=== PATIENT | female | born 1940 | race Caucasian/White ===

== ENCOUNTER → 2017-01-06 | Outpatient (CLI) | payer OTHER ==
[2016-04-01 19:59] VITALS: BP 165/87
--- NOTE | 2017-01-06 10:03 | CT ---
HISTORY: Follow up lung nodule Study: CT chest without con Comparison: June 27, 2016 April 02, 2016, January 26, 2016 Technique: Axial non contrast images with coronal and sagittal reformats. Dose reduction procedures were used with MA/kv adjusted for body size. Findings: Examination of the mediastinum demonstrated no evidence for mediastinal masses enlarged lymphadenopa thy or enlarged hilar adenopathy. Stable nonenlarged mediastinal lymph nodes are present. No pleural effusions are identified. A small hiatal hernia is present. No chest wall or axillary abnormality i s identified. Those portions of the upper abdominal organs visualized were within normal limits to t he limitations of an unenhanced examination. Examination of the lung eagle again demonstrated a pos terior right apical pulmonary nodule best visualized on series 4, image 14 and measuring 7.1 millime ters not significantly changed from the prior examination. This has been stable since January 25 6. No other pulmonary nodules are identified. No masses, alveolar infiltrates, areas of consolidatio n, peribronchial thickening or bronchiectasis is identified. IMPRESSION: Stable right upper lobe pulmonary nodule for which continued follow up is recommended in 6 more daniel hs. Follow up will be required for total of 2 years in order to establish stability and benignity. Stable nonenlarged mediastinal lymph nodes Small hiatal hernia Reported By:
== END ==
LOC: RAD 08:57
PROVIDERS: ATTEND Internal Medicine Critical Care Medicine
DX: J45.30 Mild persistent asthma, uncomplicated (principal); R91.1 Solitary pulmonary nodule
CPT/HCPCS: 71250

== ENCOUNTER → 2017-07-07 | Outpatient (CLI) | payer OTHER ==
[2016-04-01 19:59] VITALS: BP 165/87
--- NOTE | 2017-07-08 17:11 | CT ---
HISTORY: Solitary pulmonary nodule. Asthma. Severe shortness of breath. Uterine cancer Study: Computed tomography of the chest: Multiple axial images were obtained throughout the chest. Intravascular contrast was not administered. Radiation dose reduction techniques utilized. Comparison: 01/06/2017 Findings: There is moderate apical pleural/parenchymal thickening and nodularity, not felt to be significantly changed from the prior examination. This most likely is due to scarring. A pulmonary nodule is pres ent in the posterior right upper lobe measuring approximately 6.4 by 6.5 mm, not felt to be significa ntly changed. There are couple pleural-based densities present in the posterior aspect of the right hemithorax, most likely scarring. No new nodules are identified. The thyroid appears normal. I see no appreciable supraclavicular adenopathy. No evidence of axillar y adenopathy is identified. A small lymph node is present in the left side of the upper mediastinum on, unchanged. Minimal atherosclerotic changes noted in the thoracic aorta. A small subcarinal lymp h node is present, unchanged. It appears to be partially calcified. No definite hilar adenopathy is identified. A small soft tissue density is present anterior to the esophagus between the branches o f the pulmonary artery is measuring approximately 17 mm in maximum dimension. This has [place]oun[place] un its of fluid and may represent a small pericardial effusion or cyst. Heart size is normal. Coronary arterial calcification is noted. A small hiatal hernia/paraesophageal hernia is noted, unchanged. The visualized liver shows mild fatty infiltration. Borderline hepatomegaly is present. The gallbla dder is mildly contracted. No appreciable biliary duct dilatation is noted. The spleen is normal in its appearance. The adrenal glands are normal. Mild atherosclerotic changes noted in the visualize d abdominal aorta. The visualized kidneys and pancreas are normal. No discrete abnormality of stoma ch are visualized: Are small bowel is noted. Minimal thoracic spondylosis is noted. There is what appears to be a small hemangioma in the L1 vert ebral body, unchanged. IMPRESSION: 1. Stable appearance of the right pulmonary nodule. Continued follow-up is recommended. An additio nal follow-up in 6 months is recommended. 2. Stable appearance of the its small mediastinal lymph nodes. Reported By:
== END ==
LOC: RAD 14:09
PROVIDERS: ATTEND Internal Medicine Critical Care Medicine
DX: R91.1 Solitary pulmonary nodule (principal); J45.30 Mild persistent asthma, uncomplicated
CPT/HCPCS: 71250

== ENCOUNTER 2018-09-30 22:17 | Inpatient (IN) ==
[2018-09-30] MEDS ORDERED: PEPCID 20 MG IV PREMIX* 20 MG/50 ML BAG IV ONE (23:52)
[2018-09-30] MEDS ORDERED: ZOFRAN INJ 4 MG VIAL IVP ONE (23:54)
[2018-09-30] MEDS ORDERED: MORPHINE SULFATE INJ 4 MG IVP ONE (23:54)
[2018-09-30] MEDS ORDERED: ZOFRAN INJ 4 MG VIAL ONE (23:57)
[2018-09-30] MEDS ORDERED: PEPCID 20 MG IV PREMIX* 20 MG/50 ML BAG ONE (23:57)
[2018-09-30] MEDS ORDERED: MORPHINE SULFATE INJ 4 MG ONE (23:58)
[2018-10-01] MEDS: NS 1000 ML 1,000 ML IV SCH ×4 (00:10→15:54)
--- NOTE | 2018-10-01 00:11 | ED.ABDFE ---
HPI Time Seen Time Seen by Provider: 09/30/18 23:49 PCP Primary Care Physician: TONJA BREAUX Complaint Chief Complaint:: STATES STOMACH PAIN JUST STARTED TODAY AND RIGHT LEG THE BACK OF IT HAS BEEN HURTING FOR 2 WEEKS AND IT GETS "AN INFECTION IN IT". NO C OMPLAINTS OF N/V/D Self Treatment fo Chief Complaint: N/A Source History Provided: Patient Mode of arrival Mode of Arrival: Ambulatory Timing Onset of Chief Complaint: 09/30/18 PMH PMH Past Medical History: Yes Past Medical History: Anxiety and GERD Past Medical History Comment: RESTLESS LEGS STENT Past Surgical History: Yes Surgical History: Hysterectomy and Ortho Surgery Past Surgical History Comment: BILATERAL KNEES BLADDER TACT HEART CATH Family History History of Family Medical Conditions: Yes Family Medical History: Diabetes Mellitus and Cancer Social History Does patient currently use any type of tobacco product: No Have you used tobacco products in the last 12 months: No Type of Tobacco Use: None Does any household member use tobacco: No Alcohol Use: None Do you use any recreational Drugs:: No Lives With: Family Lives Where: Home infectious screening In the last 2 months have you had wt loss of >10#?: NO Have you had fever, night sweats or hemotysis?: No Have you traveled outside the country in the last 6 months?: No Isolation: Standard PE Vital Signs Vitals: Temperature 98.0 F Pulse Rate [Left] 75 Pulse Rate 89 Respiratory Rate 16 Blood Pressure [Right Arm] 139/62 Blood Pressure [Left Arm] 161/63 Blood Pressure 140/65 O2 Sat by Pulse Oximetry 97 ROR Labs Reviewed Result Diagrams: 10/01/18 00:05 10/01/18 00:05 Laboratory: WBC 17.9 X10^3/uL (3.6-10.0) H 10/01/18 00:05 RBC 4.84 X10^6/uL (3.5-5.4) 10/01/18 00:05 Hgb 14.8 g/dL (12.0-16.0) 10/01/18 00:05 Hct 43.4 % (36.0-47.0) 10/01/18 00:05 MCV 89.6 fL (80.0-100.0) 10/01/18 00:05 MCH 30.6 pg (27.0-34.0) 10/01/18 00:05 MCHC 34.1 g/dL (33.0-35.0) 10/01/18 00:05 RDW 14.8 % (11.6-16.5) 10/01/18 00:05 Plt Count 236 X10^3/uL (150.0-450.0) 10/01/18 00:05 MPV 8.8 fL (7.4-11.0) 10/01/18 00:05 Neut % (Auto) 78.6 % (42.0-75.0) H 10/01/18 00:05 Lymph % (Auto) 13.0 % (21.0-51.0) L 10/01/18 00:05 [place] % (Auto) 6.6 % (0.0-13.0) 10/01/18 00:05 Eos % (Auto) 1.1 % (0.9-2.9) 10/01/18 00:05 Baso % (Auto) 0.7 % (0.2-1.0) 10/01/18 00:05 Neut # (Auto) 14.1 x10^3/uL (2.2-4.8) H 10/01/18 00:05 Lymph # (Auto) 2.3 X10^3/uL (1.3-2.9) 10/01/18 00:05 [place] # (Auto) 1.2 x10^3/uL (0.3-0.8) H 10/01/18 00:05 Eos # (Auto) 0.2 x10^3/uL (0.0-0.2) 10/01/18 00:05 Baso # (Auto) 0.1 X10^3/uL (0.0-0.1) 10/01/18 00:05 Absolute Nucleated RBC 0.0 /100WBC 10/01/18 00:05 Sodium 139 mmol/L (136-145) 10/01/18 00:05 Corrected Sodium 139 mmol/L (136-145) 10/01/18 00:05 Potassium 3.5 mmol/L (3.5-5.1) 10/01/18 00:05 Chloride 102 mmol/L (98-107) 10/01/18 00:05 Carbon Dioxide 25.8 mmol/L (21-32) 10/01/18 00:05 BUN 12 mg/dL (7-18) 10/01/18 00:05 Creatinine 0.91 mg/dL (0.55-1.02) 10/01/18 00:05 Est GFR (MDRD) Af Amer > 60 (>60) 10/01/18 00:05 Est GFR (MDRD) Non-Af > 60 (>60) 10/01/18 00:05 Glucose 112 mg/dL (65-99) H 10/01/18 00:05 Calcium 8.7 mg/dL (8.5-10.1) 10/01/18 00:05 Corrected Calcium 9.5 mg/dL (8.5-10.1) 10/01/18 00:05 Total Bilirubin 0.60 mg/dL (0.2-1.0) 10/01/18 00:05 AST 15 Units/L (15-37) 10/01/18 00:05 ALT 23 Units/L (12-78) 10/01/18 00:05 Alkaline Phosphatase 92 Units/L (46-116) 10/01/18 00:05 Total Protein 6.3 g/dL (6.4-8.2) L 10/01/18 00:05 Albumin 3.0 g/dL (3.4-5.0) L 10/01/18 00:05 Globulin 3.3 g/dL (2.5-4.5) 10/01/18 00:05 Albumin/Globulin Ratio 0.9 Ratio (1.1-2.1) L 10/01/18 00:05 Amylase 48 Units/L (25-115) 10/01/18 00:05 Lipase 146 Units/L (73-393) 10/01/18 00:05 Specimen Type Clean catch urine 10/01/18 00:07 Urine Color Pale yellow (YELLOW) 10/01/18 00:07 Urine Appearance Clear (CLEAR) 10/01/18 00:07 Urine pH 7.0 (5.0 - 8.0) 10/01/18 00:07 Ur Specific [place] 1.005 (1.000-1.030) 10/01/18 00:07 Urine Protein Negative (NEGATIVE) 10/01/18 00:07 Urine Glucose (UA) Negative (NEGATIVE) 10/01/18 00:07 Urine Ketones Negative (NEGATIVE) 10/01/18 00:07 Urine Occult Blood Negative (NEGATIVE) 10/01/18 00:07 Urine Nitrite Negative (NEGATIVE) 10/01/18 00:07 Urine Bilirubin Negative (NEGATIVE) 10/01/18 00:07 Urine Urobilinogen Normal (NORMAL) 10/01/18 00:07 Ur Leukocyte Esterase Negative (NEGATIVE) 10/01/18 00:07
[2018-10-01 00:17] LABS: BASOPHILS # (AUTO) 0.1 X10^3/uL (0.0-0.1); BASOPHILS % (AUTO) 0.7 % (0.2-1.0); EOSINOPHILS # (AUTO) 0.2 x10^3/uL (0.0-0.2); EOSINOPHILS % (AUTO) 1.1 % (0.9-2.9); HEMATOCRIT 43.4 % (36.0-47.0); HEMOGLOBIN 14.8 g/dL (12.0-16.0); LYMPHOCYTES # (AUTO) 2.3 X10^3/uL (1.3-2.9); MEAN CORPUSCULAR HEMOGLOBIN 30.6 pg (27.0-34.0); MEAN CORPUSCULAR HGB CONC 34.1 g/dL (33.0-35.0); MEAN CORPUSCULAR VOLUME 89.6 fL (80.0-100.0); MEAN PLATELET VOLUME 8.8 fL (7.4-11.0); MONOCYTES # (AUTO) 1.2 x10^3/uL (0.3-0.8); MONOCYTES % (AUTO) 6.6 % (0.0-13.0); NEUTROPHILS # (AUTO) 14.1 x10^3/uL (2.2-4.8); NEUTROPHILS % (AUTO) 78.6 % (42.0-75.0); PLATELET COUNT 236 X10^3/uL (150.0-450.0); RED BLOOD COUNT 4.84 X10^6/uL (3.5-5.4); RED CELL DISTRIBUTION WIDTH 14.8 % (11.6-16.5); WHITE BLOOD COUNT 17.9 X10^3/uL (3.6-10.0)
[2018-10-01 00:20] LABS: BILIRUBIN,URINE NEGATIVE (NEGATIVE); BLOOD/HEMOGLOBIN,URINE NEGATIVE (NEGATIVE); GLUCOSE, URINE NEGATIVE (NEGATIVE); KETONES,URINE NEGATIVE (NEGATIVE); LEUKOCYTE ESTERASE ,URINE NEGATIVE (NEGATIVE); NITRITES,URINE NEGATIVE (NEGATIVE); PROTEIN,URINE NEGATIVE (NEGATIVE); UROBILINOGEN,URINE NORMAL (NORMAL)
[2018-10-01 00:21] LABS: APPEARANCE,URINE CLEAR (CLEAR); COLOR,URINE PALE YELLOW (YELLOW)
[2018-10-01 00:29] LABS: ALANINE AMINOTRANSFERASE 23 Units/L (12-78); ALKALINE PHOSPHATASE 92 Units/L (46-116); AMYLASE 48 Units/L (25-115); ASPARTATE AMINO TRANSFERASE 15 Units/L (15-37); BLOOD UREA NITROGEN 12 mg/dL (7-18); CALCIUM 8.7 mg/dL (8.5-10.1); CARBON DIOXIDE 25.8 mmol/L (21-32); CHLORIDE 102 mmol/L (98-107); COR CA(FOR HYPOALB) 9.5 mg/dL (8.5-10.1); COR NA(FOR HYPERGLY) 139 mmol/L (136-145); CREATININE 0.91 mg/dL (0.55-1.02); LIPASE 146 Units/L (73-393); SODIUM 139 mmol/L (136-145); TOTAL PROTEIN 6.3 g/dL (6.4-8.2); eGFR NON BLACK RACES > 60 (>60)
[2018-10-01] MEDS ORDERED: NS 100 ML IV + SPIKE MINIBAG* 100 ML ONE (01:45)
--- NOTE | 2018-10-01 02:40 | CT ---
CT abdomen and pelvis with contrast Indication: Abdominal pain Comparison: none available Technique: Multiple axial images of the abdomen and pelvis were obtained from the lung bases to the pubic symphysis after the administration of IV contrast. Coronal and sagittal reformatted images were also provided. Findings: The lung bases demonstrate mild subsegmental atelectasis and scarring. No focal hepatic lesion. Gallbladder is distended without calcified gallstone or pericholecystic stranding. Bile ducts are normal in caliber. The spleen, pancreas and adrenal glands are normal. Neither kidney demonstrates evidence of nephrolithiasis; however, there is [id number] right and mild left-sided hydronephrosis. Urinary bladder is distended. No pelvic or adnexal mass. The rectum is normal. Several diverticula with moderate bowel wall thickening and pericolonic fat stranding noted within the sigmoid colon is consistent with an acute sigmoid diverticulitis. No localizing fluid collection or free air to suggest perforation. Remaining colon demonstrates scattered diverticula without evidence of additional areas of diverticulitis. Upper GI tract demonstrates a small sliding hiatal hernia with a very small paraesophageal lymph node. No pelvic free fluid. Abdominal aorta is normal in caliber with scattered calcified atherosclerotic disease. Review of bone windows demonstrates no acute osseous abnormality. Impression: 1. Acute sigmoid diverticulitis without evidence of abscess or free air to suggest perforation. 2. Mild to moderate right and mild left-sided hydronephrosis the level the urinary bladder, no obstructing stone or mass identified. 3. Refer to above for other incidental findings. Reported By:
[2018-10-01] MEDS ORDERED: FLAGYL IV PREMIX 500 MG BAG 500 MG/100 ML BAG IV ONE ×2 (03:35→03:38)
[2018-10-01] MEDS ORDERED: XANAX PO PRN (04:23)
[2018-10-01 04:36] VITALS: BMI 29.7
[2018-10-01] MEDS: MORPHINE SULFATE INJ 2 MG INJ IVP PRN ×2 (05:26→11:04)
[2018-10-01] MEDS: CIPRO IV 400 MG PREMIX* 400 MG/200 ML IV.SOLN. IV SCH ×2 (08:55→20:04)
[2018-10-01] MEDS: FLAGYL IV PREMIX 500 MG BAG 500 MG/100 ML BAG IV SCH ×3 (08:56→20:04)
[2018-10-01] MEDS: COREG TAB 6.25 MG PO SCH ×2 (10:37→21:32)
[2018-10-01] MEDS: CLARITIN PO SCH (10:38)
[2018-10-01] MEDS: MIRAPEX TAB 1 MG PO SCH ×2 (12:12→21:32)
[2018-10-01] MEDS: TYLENOL 325 MG TAB PO PRN (13:34)
[2018-10-01] MEDS ORDERED: MIRAPEX TAB 1 MG PO SCH (21:00)
[2018-10-01] MEDS: KLONOPIN TAB 1 MG PO SCH (21:33)
[2018-10-01] MEDS: SOMA TAB 350 MG PO SCH (21:33)
[2018-10-02] MEDS: FLAGYL IV PREMIX 500 MG BAG 500 MG/100 ML BAG IV SCH ×4 (02:22→20:31)
[2018-10-02] MEDS: NS 1000 ML 1,000 ML IV SCH ×2 (02:26→12:59)
[2018-10-02 06:09] LABS: BASOPHILS # (AUTO) 0.1 X10^3/uL (0.0-0.1); BASOPHILS % (AUTO) 0.6 % (0.2-1.0); EOSINOPHILS # (AUTO) 0.2 x10^3/uL (0.0-0.2); EOSINOPHILS % (AUTO) 1.7 % (0.9-2.9); HEMATOCRIT 39.7 % (36.0-47.0); HEMOGLOBIN 13.5 g/dL (12.0-16.0); LYMPHOCYTES # (AUTO) 1.4 X10^3/uL (1.3-2.9); LYMPHOCYTES % (AUTO) 14.2 % (21.0-51.0); MEAN CORPUSCULAR HEMOGLOBIN 30.7 pg (27.0-34.0); MEAN CORPUSCULAR VOLUME 90.4 fL (80.0-100.0); MEAN PLATELET VOLUME 8.8 fL (7.4-11.0); MONOCYTES # (AUTO) 0.7 x10^3/uL (0.3-0.8); MONOCYTES % (AUTO) 6.8 % (0.0-13.0); NEUTROPHILS # (AUTO) 7.7 x10^3/uL (2.2-4.8); NEUTROPHILS % (AUTO) 76.7 % (42.0-75.0); PLATELET COUNT 210 X10^3/uL (150.0-450.0); RED BLOOD COUNT 4.39 X10^6/uL (3.5-5.4); RED CELL DISTRIBUTION WIDTH 15.2 % (11.6-16.5)
[2018-10-02 06:30] LABS: ALANINE AMINOTRANSFERASE 21 Units/L (12-78); ALBUMIN 2.5 g/dL (3.4-5.0); ALKALINE PHOSPHATASE 74 Units/L (46-116); ASPARTATE AMINO TRANSFERASE 15 Units/L (15-37); BLOOD UREA NITROGEN 7 mg/dL (7-18); CALCIUM 8.5 mg/dL (8.5-10.1); CARBON DIOXIDE 25.7 mmol/L (21-32); CHLORIDE 109 mmol/L (98-107); COR CA(FOR HYPOALB) 9.7 mg/dL (8.5-10.1); CREATININE 0.81 mg/dL (0.55-1.02); SODIUM 144 mmol/L (136-145); TOTAL PROTEIN 5.7 g/dL (6.4-8.2); eGFR NON BLACK RACES > 60 (>60)
[2018-10-02] MEDS: CIPRO IV 400 MG PREMIX* 400 MG/200 ML IV.SOLN. IV SCH ×2 (09:08→20:31)
[2018-10-02] MEDS: CLARITIN PO SCH (09:09)
[2018-10-02] MEDS: COREG TAB 6.25 MG PO SCH ×2 (09:09→20:32)
[2018-10-02] MEDS: MIRAPEX TAB 1 MG PO SCH ×2 (09:09→20:32)
[2018-10-02] MEDS: TYLENOL 325 MG TAB PO PRN ×2 (10:26→21:36)
[2018-10-02] MEDS: ZOFRAN INJ 4 MG VIAL IVP PRN (11:05)
[2018-10-02] MEDS: PEPCID 20 MG IV PREMIX* 20 MG/50 ML BAG IV PRN ×2 (11:09→12:59)
[2018-10-02] MEDS: LOVENOX INJ 30 MG SYR SC SCH (12:59)
[2018-10-02] MEDS: SOMA TAB 350 MG PO SCH (20:31)
[2018-10-02] MEDS: KLONOPIN TAB 1 MG PO SCH (20:32)
[2018-10-03] MEDS: NS 1000 ML 1,000 ML IV SCH ×5 (02:11→23:09)
[2018-10-03] MEDS: FLAGYL IV PREMIX 500 MG BAG 500 MG/100 ML BAG IV SCH ×4 (02:11→20:09)
[2018-10-03] MEDS: MORPHINE SULFATE INJ 2 MG INJ IVP PRN ×2 (05:53→12:14)
[2018-10-03] MEDS: TYLENOL 325 MG TAB PO PRN (08:17)
[2018-10-03] MEDS: LOVENOX INJ 30 MG SYR SC SCH (08:30)
[2018-10-03] MEDS: CIPRO IV 400 MG PREMIX* 400 MG/200 ML IV.SOLN. IV SCH ×2 (08:30→20:09)
[2018-10-03] MEDS: MIRAPEX TAB 1 MG PO SCH ×2 (08:30→20:10)
[2018-10-03] MEDS: CLARITIN PO SCH (08:30)
[2018-10-03] MEDS: COREG TAB 6.25 MG PO SCH ×2 (08:30→20:10)
[2018-10-03] MEDS: ZOFRAN INJ 4 MG VIAL IVP PRN (12:15)
[2018-10-03] MEDS: SOMA TAB 350 MG PO SCH (20:10)
[2018-10-03] MEDS: KLONOPIN TAB 1 MG PO SCH (20:10)
[2018-10-03] MEDS ORDERED: MIRALAX POWDER (1 DOSE 17 G) PO SCH (21:00)
[2018-10-03] MEDS ORDERED: COLACE CAP 100 MG PO SCH (21:00)
[2018-10-04] MEDS: FLAGYL IV PREMIX 500 MG BAG 500 MG/100 ML BAG IV SCH ×2 (02:19→08:24)
[2018-10-04] MEDS: NS 1000 ML 1,000 ML IV SCH ×2 (06:14→07:22)
[2018-10-04 06:31] LABS: BASOPHILS # (AUTO) 0.1 X10^3/uL (0.0-0.1); BASOPHILS % (AUTO) 0.7 % (0.2-1.0); EOSINOPHILS # (AUTO) 0.3 x10^3/uL (0.0-0.2); EOSINOPHILS % (AUTO) 2.7 % (0.9-2.9); HEMATOCRIT 41.8 % (36.0-47.0); HEMOGLOBIN 14.1 g/dL (12.0-16.0); LYMPHOCYTES # (AUTO) 2.1 X10^3/uL (1.3-2.9); LYMPHOCYTES % (AUTO) 21.4 % (21.0-51.0); MEAN CORPUSCULAR HEMOGLOBIN 30.7 pg (27.0-34.0); MEAN CORPUSCULAR HGB CONC 33.9 g/dL (33.0-35.0); MEAN CORPUSCULAR VOLUME 90.6 fL (80.0-100.0); MEAN PLATELET VOLUME 8.9 fL (7.4-11.0); MONOCYTES # (AUTO) 0.6 x10^3/uL (0.3-0.8); MONOCYTES % (AUTO) 6.5 % (0.0-13.0); NEUTROPHILS # (AUTO) 6.8 x10^3/uL (2.2-4.8); NEUTROPHILS % (AUTO) 68.7 % (42.0-75.0); PLATELET COUNT 246 X10^3/uL (150.0-450.0); RED BLOOD COUNT 4.61 X10^6/uL (3.5-5.4); WHITE BLOOD COUNT 9.8 X10^3/uL (3.6-10.0)
[2018-10-04 06:36] LABS: ALANINE AMINOTRANSFERASE 19 Units/L (12-78); ALBUMIN 2.7 g/dL (3.4-5.0); ALKALINE PHOSPHATASE 85 Units/L (46-116); ASPARTATE AMINO TRANSFERASE 17 Units/L (15-37); BLOOD UREA NITROGEN 11 mg/dL (7-18); CALCIUM 8.8 mg/dL (8.5-10.1); CHLORIDE 107 mmol/L (98-107); COR CA(FOR HYPOALB) 9.8 mg/dL (8.5-10.1); CREATININE 0.86 mg/dL (0.55-1.02); SODIUM 141 mmol/L (136-145); eGFR NON BLACK RACES > 60 (>60)
[2018-10-04] MEDS: COREG TAB 6.25 MG PO SCH (08:24)
[2018-10-04] MEDS: CLARITIN PO SCH (08:24)
[2018-10-04] MEDS: LOVENOX INJ 30 MG SYR SC SCH (08:24)
[2018-10-04] MEDS: CIPRO IV 400 MG PREMIX* 400 MG/200 ML IV.SOLN. IV SCH (08:24)
[2018-10-04] MEDS: MIRAPEX TAB 1 MG PO SCH (08:25)
[2018-10-04 09:36] VITALS: BP 154/93
== END 2018-10-04 11:20 | disposition home or self-care (01) | DRG 392 ==
LOC: ER 22:17 → MED/SURG 10-01 03:42
PROVIDERS: ADMIT Obstetrics & Gynecology Obstetrics; ATTEND Obstetrics & Gynecology Obstetrics
DX: I10 Essential (primary) hypertension; K57.32 Diverticulitis of large intestine without perforation or abscess without bleeding; R10.84 Generalized abdominal pain; K21.9 Gastro-esophageal reflux disease without esophagitis; Z79.899 Other long term (current) drug therapy
CPT/HCPCS: 36415; 74177; 80053; 81003; 82150; 83690; 85025; 96365; 96367; 96374; 96375; 99284; A4222; S0028; S0030; J0744; J1650; J2270; J2405; J3490; J7030; J7050

== ENCOUNTER 2020-02-20 10:57 | Inpatient (IN) ==
[2020-02-20 13:15] VITALS: BMI 29.4
[2020-02-20] MEDS: PROTONIX INJ 40 MG VIAL IVP SCH (13:15)
[2020-02-20] MEDS: ZOSYN VIAL 3.375 GRAMS 3.375 G in NS 100 ML IV + SPIKE MINIBAG* 100 ML IV SCH ×2 (13:15→17:17)
[2020-02-20] MEDS: ZITHROMAX INJ 500 MG VIAL 500 MG in D5W 250 ML IV 250 ML IV SCH (13:45)
[2020-02-20] MEDS ORDERED: DUONEB 0.5 MG/3 MG (3 mL) NEB ONE (13:50)
--- NOTE | 2020-02-20 14:05 | RAD ---
HISTORYCOVID, PNEUMONIA, COUGHSTUDYCHEST x-ray, 1 VIEWCOMPARISONX-ray 02/18/2020FINDINGSBilateral lung infiltrates may have slightly worsened since prior study. Heart is normal in size. No pneumothorax or pleural effusion is seen.IMPRESSIONPossible mild worsening of bilateral pneumonia.Electronically signed by: Armando Dunne (Feb 20, 2020 14:04:32)
[2020-02-20] MEDS: DUONEB 0.5 MG/3 MG (3 mL) NEB SCH ×3 (14:10→20:20)
[2020-02-20 14:22] LABS: ABG ALLEN TEST POS; ABG BASE EXCESS -0.3 mmol/L (-2.0-2.0); ABG HCO3 22.1 mmol/L (22-26)
[2020-02-20 14:38] LABS: BASOPHILS # (AUTO) 0.1 X10^3/uL (0.0-0.1); BASOPHILS % (AUTO) 0.6 % (0.2-1.0); EOSINOPHILS % (AUTO) 0.2 % (0.9-2.9); HEMATOCRIT 39.3 % (36.0-47.0); HEMOGLOBIN 13.6 g/dL (12.0-16.0); LYMPHOCYTES # (AUTO) 1.7 X10^3/uL (1.3-2.9); LYMPHOCYTES % (AUTO) 14.5 % (21.0-51.0); MEAN CORPUSCULAR HEMOGLOBIN 30.7 pg (27.0-34.0); MEAN CORPUSCULAR HGB CONC 34.6 g/dL (33.0-35.0); MEAN CORPUSCULAR VOLUME 88.6 fL (80.0-100.0); MEAN PLATELET VOLUME 9.7 fL (7.4-11.0); MONOCYTES # (AUTO) 0.8 x10^3/uL (0.3-0.8); MONOCYTES % (AUTO) 7.2 % (0.0-13.0); NEUTROPHILS # (AUTO) 9.1 x10^3/uL (2.2-4.8); NEUTROPHILS % (AUTO) 77.5 % (42.0-75.0); PLATELET COUNT 225 X10^3/uL (150.0-450.0); RED BLOOD COUNT 4.44 X10^6/uL (3.5-5.4); RED CELL DISTRIBUTION WIDTH 13.7 % (11.6-16.5); WHITE BLOOD COUNT 11.7 X10^3/uL (3.6-10.0)
[2020-02-20] MEDS: SOLU-Medrol 125 MG VIAL IVP SCH ×2 (15:00→22:11)
[2020-02-20] MEDS: LOVENOX INJ 40 MG SYR SC SCH (15:00)
[2020-02-20 15:05] LABS: BLOOD UREA NITROGEN 11 mg/dL (7-18); CALCIUM 8.9 mg/dL (8.5-10.1); CARBON DIOXIDE 24.8 mmol/L (21-32); CHLORIDE 98 mmol/L (98-107); CREATININE 1.07 mg/dL (0.55-1.02); SODIUM 134 mmol/L (136-145); TROPONIN I < 0.02 ng/mL (0-1.5); eGFR NON BLACK RACES 53 (>60)
[2020-02-20 15:10] LABS: ALANINE AMINOTRANSFERASE 24 Units/L (12-78); ALBUMIN 2.7 g/dL (3.4-5.0); ALKALINE PHOSPHATASE 84 Units/L (46-116); ASPARTATE AMINO TRANSFERASE 32 Units/L (15-37); CKMB % 1.6 % (<4); COR CA(FOR HYPOALB) 9.9 mg/dL (8.5-10.1); CREATINE KINASE 62 Units/L (26-192); CREATINE KINASE MB < 1.0 ng/mL (0-4.0); TOTAL PROTEIN 7.5 g/dL (6.4-8.2)
[2020-02-20 15:14] LABS: ERYTHROCYTE SEDIMENTATION RATE 93 MM/HOUR (0-20)
--- NOTE | 2020-02-20 18:14 | DR.H&P ---
H&P - History & Physical for Day of: H&P Date: 02/20/20 - Chief Complaint Chief Complaint: sob, weakness, report pneumonia with covid + - History of Present Illness History of Present Illness: PT IS 79 WF DIRECT ADMIT FROM DR VERDUGO OFFICE W ITH CO COVID 19+ X 1 WEEK WITH CO INCREASED CHEST PAIN, SOB AND DEHYDRATION. PT HAD CXR ON 02/17 REVEALING PNEUMONIA. PT HAS BEEN ON PO LEVAQUIN, PLAQUENIL, ZITHROMAX AND PO STEROIDS WITH DUO NEBS AND NO IMPROVEMENT. PT HAS PMH OF CAD WITH 1 STENT, DENIES DM - Past Medical History Past Medical History: Anxiety, COPD, GERD - Past Surgical History Surgical History: CABG/Valve Surgery, Ortho Surgery - Family History Family Medical History: Diabetes Mellitus, Cancer - Social History Does patient currently use any type of tobacco product: No Have you used tobacco products in the last 12 months: No Type of Tobacco Use: None Alcohol Use: None - Medications Home Medications: codeine Allergy (Verified 02/18/20 11:03) CONTINUE taking the following medications ciprofloxacin HCl [Cipro] 500 mg PO DAILY 02/20/20 [History] metronidazole-skin cleansr #23 0.75 % TOPICAL BID 02/20/20 [History] oxycodone-acetaminophen [Percocet] 1 tab PO BID MDD 4 02/20/20 [History] - Review of Systems Constitutional: Fever, Chills, Sweats, Weakness, Malaise Eyes: No Symptoms Reported ENT: No Symptoms Reported Respiratory: Cough, Shortness of Breath, SOB with Excertion, Pleuritic Pain Cardiovascular: Chest Pain. denies: Edema Gastrointestinal: Nausea, Vomiting, Diarrhea Genitourinary: No Symptoms Reported Musculoskeletal: Back Pain, Leg Pain Skin: No Symptoms Reported Neurological: Weakness - Physical Exam Vital Signs: Temperature 98.0 F Pulse Rate [Left Radial] 93 Pulse Rate 99 Respiratory Rate 37 Blood Pressure [Right Arm] 148/67 Blood Pressure [Left Arm] 142/64 Blood Pressure 156/74 O2 Sat by Pulse Oximetry 95 Oriented: Normal Eyes: Normal Ear: Normal Nose: Normal Throat: Dry Respiratory: Diminished Throughout Cardiovascular: Tachycardia. negative: Edema Auscultation: Bowel Sounds: Normal Palpation: Normal Tenderness: Normal Skin: Decreased Turgur Musculoskeletal: Normal Psychiatric: Anxiety Affect: Anxious Speech Pattern: Clear, Appropriate - Assessment/Plan (1) Pneumonia due to COVID-19 virus Status: Acute Plan: ADMIT, ICU, ISOLATION. CXR AND ABG ON ADMISSION, EKG AND CARDIAC MONITORING, CE ON ADMISSION. IV HYDRATION, STRICT I&OS, IV ZITHROMAX AND ZOSYN. IV REMDESIVIR, CONVALESCENT PLASMA, IV SOLU MEDROL. SUPPLEMENTAL O2, BP CONTROL, BLOOD AND SPUTUM CULTURES ON ADMISSION. VERIFY HOME MEDICATION (2) Hypoxia Status: Acute (3) CAD (coronary artery disease) Status: Acute - Allergies Allergies/Adverse Reactions: Allergies Allergy/AdvReac Type Severity Reaction Status Date / Time codeine Allergy Verified 02/18/20 11:03
[2020-02-20] MEDS ORDERED: ROBITUSSIN DM PO PRN (18:18)
[2020-02-20] MEDS ORDERED: REMDESIVIR (INVESTIGATIONAL DRUG GS-5734) 200 MG in NS 250 ML IV 250 ML IV SCH (19:00)
[2020-02-20] MEDS ORDERED: NORCO 7.5/325 MG TAB ONE (19:35)
[2020-02-20] MEDS: NORCO 7.5/325 MG TAB PO SCH (19:40)
[2020-02-20] MEDS: NS 1000 ML 1,000 ML IV SCH (21:00)
[2020-02-20] MEDS: ASCORBIC ACID INJ MULTI-DOSE VIAL 1,500 MG in NS 100 ML IV 100 ML IV SCH (21:00)
[2020-02-20] MEDS: MIRAPEX TAB 1 MG PO SCH (21:00)
[2020-02-20] MEDS: PLAQUENIL PO SCH (21:00)
[2020-02-21] MEDS: DUONEB 0.5 MG/3 MG (3 mL) NEB SCH ×6 (00:40→21:45)
[2020-02-21 05:27] LABS: BASOPHILS % (AUTO) 0.1 % (0.2-1.0); HEMATOCRIT 39.3 % (36.0-47.0); HEMOGLOBIN 13.5 g/dL (12.0-16.0); LYMPHOCYTES # (AUTO) 0.5 X10^3/uL (1.3-2.9); MEAN CORPUSCULAR HEMOGLOBIN 31.1 pg (27.0-34.0); MEAN CORPUSCULAR HGB CONC 34.5 g/dL (33.0-35.0); MEAN CORPUSCULAR VOLUME 90.2 fL (80.0-100.0); MEAN PLATELET VOLUME 9.3 fL (7.4-11.0); MONOCYTES # (AUTO) 0.3 x10^3/uL (0.3-0.8); MONOCYTES % (AUTO) 2.9 % (0.0-13.0); NEUTROPHILS # (AUTO) 8.9 x10^3/uL (2.2-4.8); PLATELET COUNT 217 X10^3/uL (150.0-450.0); RED BLOOD COUNT 4.35 X10^6/uL (3.5-5.4); RED CELL DISTRIBUTION WIDTH 14.1 % (11.6-16.5); WHITE BLOOD COUNT 9.6 X10^3/uL (3.6-10.0)
[2020-02-21 05:56] LABS: ALBUMIN 2.2 g/dL (3.4-5.0); CALCIUM 8.6 mg/dL (8.5-10.1); CARBON DIOXIDE 20.4 mmol/L (21-32); CREATININE 1.25 mg/dL (0.55-1.02); TOTAL PROTEIN 6.6 g/dL (6.4-8.2)
[2020-02-21] MEDS: ZOSYN VIAL 3.375 GRAMS 3.375 G in NS 100 ML IV + SPIKE MINIBAG* 100 ML IV SCH ×5 (06:15→22:00)
[2020-02-21] MEDS: SOLU-Medrol 125 MG VIAL IVP SCH ×3 (06:15→21:00)
[2020-02-21 06:22] LABS: PLATELET MORPHOLOGY COMMENT NORMAL (NORMAL)
[2020-02-21] MEDS: PROTONIX INJ 40 MG VIAL IVP SCH (08:30)
[2020-02-21] MEDS: ASCORBIC ACID INJ MULTI-DOSE VIAL 1,500 MG in NS 100 ML IV 100 ML IV SCH ×2 (09:04→21:00)
[2020-02-21] MEDS: LOVENOX INJ 40 MG SYR SC SCH (09:05)
[2020-02-21] MEDS: NORCO 7.5/325 MG TAB PO SCH ×2 (09:05→21:00)
[2020-02-21] MEDS: MIRAPEX TAB 1 MG PO SCH ×2 (09:05→21:00)
[2020-02-21] MEDS: NS 1000 ML 1,000 ML IV SCH ×2 (09:06→18:47)
[2020-02-21] MEDS: ZITHROMAX INJ 500 MG VIAL 500 MG in D5W 250 ML IV 250 ML IV SCH (09:07)
[2020-02-21] MEDS ORDERED: KLOR-CON PO PRN ×2 (09:10→12:58)
[2020-02-21] MEDS ORDERED: K-RIDER 10 MEQ/NS 100 ML 10 MEQ/100 ML BAG IV PRN ×2 (09:10→12:58)
[2020-02-21] MEDS ORDERED: POTASSIUM CHL 40 MEQ/NS 0.45% 500 ML IV PRN ×2 (09:10→12:58)
[2020-02-21] MEDS ORDERED: K-DUR TAB 20 MEQ PO PRN ×2 (09:10→12:58)
[2020-02-21] MEDS ORDERED: POTASSIUM CHL 60 MEQ/NS 0.45% 500 ML IV PRN ×2 (09:10→12:58)
[2020-02-21] MEDS ORDERED: MICRO K EXTEN CAP 10 MEQ PO PRN ×2 (09:10→12:58)
[2020-02-21] MEDS: REMDESIVIR (INVESTIGATIONAL DRUG GS-5734) 100 MG in NS 250 ML IV 250 ML IV SCH (10:20)
[2020-02-21] MEDS: PLAQUENIL PO SCH ×2 (10:20→21:00)
[2020-02-21] MEDS: POTASSIUM CHLORIDE LIQ 20 MEQ UDC PO PRN ×3 (10:20→18:47)
[2020-02-21] MEDS: PEPCID TAB 20 MG PO SCH (10:20)
[2020-02-21] MEDS ORDERED: POTASSIUM CHLORIDE LIQ 20 MEQ UDC PO PRN (12:58)
[2020-02-21] MEDS ORDERED: SOLU-Medrol 40 MG VIAL ONE (13:14)
[2020-02-21] MEDS ORDERED: KLOR-CON ONE (18:05)
[2020-02-22] MEDS: DUONEB 0.5 MG/3 MG (3 mL) NEB SCH ×6 (00:41→20:25)
[2020-02-22] MEDS: NS 1000 ML 1,000 ML IV SCH ×2 (01:43→13:17)
[2020-02-22] MEDS ORDERED: NS 250 ML IV 250 ML IV ONE (02:37)
[2020-02-22 04:54] LABS: BASOPHILS % (AUTO) 0 % (0.2-1.0); HEMATOCRIT 38.1 % (36.0-47.0); HEMOGLOBIN 12.8 g/dL (12.0-16.0); LYMPHOCYTES # (AUTO) 0.7 X10^3/uL (1.3-2.9); LYMPHOCYTES % (AUTO) 2.4 % (21.0-51.0); MEAN CORPUSCULAR HEMOGLOBIN 30.1 pg (27.0-34.0); MEAN CORPUSCULAR HGB CONC 33.5 g/dL (33.0-35.0); MEAN CORPUSCULAR VOLUME 89.9 fL (80.0-100.0); MEAN PLATELET VOLUME 9.6 fL (7.4-11.0); MONOCYTES # (AUTO) 0.9 x10^3/uL (0.3-0.8); MONOCYTES % (AUTO) 3.1 % (0.0-13.0); NEUTROPHILS # (AUTO) 27.8 x10^3/uL (2.2-4.8); NEUTROPHILS % (AUTO) 94.5 % (42.0-75.0); PLATELET COUNT 272 X10^3/uL (150.0-450.0); RED BLOOD COUNT 4.24 X10^6/uL (3.5-5.4); RED CELL DISTRIBUTION WIDTH 13.5 % (11.6-16.5); WHITE BLOOD COUNT 29.5 X10^3/uL (3.6-10.0)
[2020-02-22 05:09] LABS: ALANINE AMINOTRANSFERASE 26 Units/L (12-78); ALBUMIN 2.2 g/dL (3.4-5.0); ALKALINE PHOSPHATASE 90 Units/L (46-116); ASPARTATE AMINO TRANSFERASE 25 Units/L (15-37); BLOOD UREA NITROGEN 11 mg/dL (7-18); CARBON DIOXIDE 24.6 mmol/L (21-32); CHLORIDE 107 mmol/L (98-107); COR CA(FOR HYPOALB) 10.4 mg/dL (8.5-10.1); COR NA(FOR HYPERGLY) 141 mmol/L (136-145); CREATININE 0.98 mg/dL (0.55-1.02); SODIUM 138 mmol/L (136-145); TOTAL PROTEIN 6.4 g/dL (6.4-8.2); eGFR NON BLACK RACES 58 (>60)
[2020-02-22 05:37] LABS: PLATELET MORPHOLOGY COMMENT NORMAL (NORMAL)
--- NOTE | 2020-02-22 05:46 | RAD ---
HISTORYPneumoniaSTUDYPortable AP [id number]/17/2020FINDINGSContinued normal heart size and contour. Extensive bilateral pulmona ry infiltrates are noted, slightly increased in the left lung and markedly progressing in the right u pper lobe. There is no evidence for complicating pneumothorax or developing pleural effusion.IMPRESSI ONInterval increase in pulmonary infiltrates/pneumonia since 02/20/2020.Electronically signed by: NANCY ALMENDAREZ (Feb 22, 2020 05:45:34)
[2020-02-22] MEDS: ZOSYN VIAL 3.375 GRAMS 3.375 G in NS 100 ML IV + SPIKE MINIBAG* 100 ML IV SCH ×3 (06:43→21:00)
[2020-02-22] MEDS: SOLU-Medrol 125 MG VIAL IVP SCH ×3 (06:43→21:00)
--- NOTE | 2020-02-22 07:40 | CT ---
[id number] female Covid-19. Now with elevated D-dimer. Evaluate for possible pulmonary embolus.STUDYCTA CHESTCOMPARISONChest radiograph performed on the same dateTECHNIQUEMultiple axial images of the chest were obtained from the thoracic inlet to the upper abdomen after the administration of IV contrast. 3D reconstructions utilizing axial MIPS imaging was performed and reviewed. Dose reduction techniques including Automated Exposure Control (AEC) and adjustment of mA and kV were utilized.FINDINGSThis central pulmonary arterial system opacifies in a homogeneous manner with no intraluminal filling defects or obstruction to flow of contrast to suggest the presence of pulmonary emboli. Though opacification of distal segmental branches is somewhat inhomogeneous, no definite evidence of pulmonary emboli is seen in these areas either.Mild cardiomegaly is seen. No pericardial effusion. Thoracic aorta is normal. Small (subcentimeter) lymph nodes are present in the mediastinum. No hilar lymphadenopathy is seen.On the lung windows, patchy areas of diffuse ground-glass opacity are seen throughout both lungs, particularly in the middle and upper lobes. These findings are consistent with patient's known diagnosis of Covid-19. No significant effusion is seen on either side.Visualized aspect of the upper abdomen is unremarkable. Incidental note is made of a hiatal hernia however. On the bone windows, no specific abnormality is seen.IMPRESSION1. No CT evidence of pulmonary emboli is seen on this exam.2. Patchy areas of diffuse ground-glass opacity are seen in both lungs, consistent with patient's known diagnosis of Covid-19.Electronically signed by: MARY JANE BANEGAS (Feb 22, 2020 07:40:00)
[2020-02-22] MEDS ORDERED: ZANAFLEX PO PRN (08:51)
[2020-02-22] MEDS: ASCORBIC ACID INJ MULTI-DOSE VIAL 1,500 MG in NS 100 ML IV 100 ML IV SCH ×2 (10:02→21:00)
[2020-02-22] MEDS: ASPIRIN EC 81 MG PO SCH (10:02)
[2020-02-22] MEDS: LOPRESSOR TAB 25 MG PO SCH ×2 (10:03→21:00)
[2020-02-22] MEDS: MIRAPEX TAB 1 MG PO SCH ×2 (10:05→21:00)
[2020-02-22] MEDS: NORCO 7.5/325 MG TAB PO SCH ×2 (10:05→21:00)
[2020-02-22] MEDS: PEPCID TAB 20 MG PO SCH (10:08)
[2020-02-22] MEDS: PROTONIX INJ 40 MG VIAL IVP SCH (10:08)
[2020-02-22] MEDS: PLAQUENIL PO SCH ×2 (10:09→21:00)
[2020-02-22] MEDS: REMDESIVIR (INVESTIGATIONAL DRUG GS-5734) 100 MG in NS 250 ML IV 250 ML IV SCH (10:09)
[2020-02-22] MEDS: LOVENOX INJ 40 MG SYR SC SCH (10:10)
--- NOTE | 2020-02-22 10:35 | PCM.PROG ---
Progress Note Progress Note for Day of Date of Exam: 02/22/20 Subjective Subjective: Patient seen at bedside, no acute overnight events. Patient states she feels very anxious and feels short of breath. She is on 2L NC and saturating 98-100%. She has been afebrile. She has mild dry cough. She did get a plasma transfusion last night. CT PE was done yesterday which was neg for PE, did show diffuse ground glass opacities. Daughter at bedside reports patient has poor veins and had been stuck multiple times this morning for blood draw and venous access. They would like to have a port placed for access. Discussed with Dr. Arenas, can place it on Monday. Will see if she can have a PICC line placed. Labs: WBC elevated 29.5 Hgb: 12.8 BUN/Cr: 11/0.98 J:3.4 Plan: resume home medications including metoprolol, asa and Xanax. Patient reports increased anxiety and takes Xanax BID prn at home. Will schedule duonebs and pulmicort. Continue solumedrol, remdesivir, zosyn and azithromycin. Monitor AM labs. Check Mag. Past Medical Family Social History Past Med/Fam/Surg Hx: Changes noted (describe) Allergies: Allergies codeine Allergy (Verified 02/18/20 11:03) Review of Systems ROS: No change since H&P and Changes notes (describe) Vital Signs and I&O's Vital Signs: Temperature 98.0 F Pulse Rate [Left Radial] 93 Pulse Rate 106 Respiratory Rate 24 Blood Pressure [Right Arm] 148/67 Blood Pressure [Left Arm] 142/64 Blood Pressure 122/53 O2 Sat by Pulse Oximetry 100 Intake and Output: Intake & Output 02/19/20 02/20/20 02/21/20 02/22/20 23:59 23:59 23:59 23:59 Intake Total 976 / 976 4596 / 4596 975 / 975 Balance 976 / 976 4596 / 4596 975 / 975 Physical Exam Oriented: Normal Eyes: Normal Ear: Normal Nose: Normal Throat: Dry Respiratory: Generalized, Diminished and Wheezes Cardiovascular: Tachycardia; negative Edema Auscultation: Bowel Sounds: Normal Tenderness: Normal Skin: Decreased Turgur, Bruising and Ecchymosis Musculoskeletal: Normal Psychiatric: Anxiety Mood Description: Anxious Affect: Anxious Speech Pattern: Clear and Appropriate Laboratory and Diagnostics Result Diagrams: 02/22/20 04:10 02/22/20 04:10 Labs: 02/20/20 13:50 Blood Blood Culture - Preliminary 02/20/20 13:42 Blood Blood Culture - Preliminary Laboratory WBC 29.5 X10^3/uL (3.6-10.0) H D 02/22/20 04:10 RBC 4.24 X10^6/uL (3.5-5.4) 02/22/20 04:10 Hgb 12.8 g/dL (12.0-16.0) 02/22/20 04:10 Hct 38.1 % (36.0-47.0) 02/22/20 04:10 MCV 89.9 fL (80.0-100.0) 02/22/20 04:10 MCH 30.1 pg (27.0-34.0) 02/22/20 04:10 MCHC 33.5 g/dL (33.0-35.0) 02/22/20 04:10 RDW 13.5 % (11.6-16.5) 02/22/20 04:10 Plt Count 272 X10^3/uL (150.0-450.0) 02/22/20 04:10 Plt Count Comment Adequate (ADEQUATE) 02/22/20 04:10 MPV 9.6 fL (7.4-11.0) 02/22/20 04:10 Neut % (Auto) 94.5 % (42.0-75.0) H 02/22/20 04:10 Lymph % (Auto) 2.4 % (21.0-51.0) L 02/22/20 04:10 [place] % (Auto) 3.1 % (0.0-13.0) 02/22/20 04:10 Eos % (Auto) 0.0 % (0.9-2.9) L 02/22/20 04:10 Baso % (Auto) 0 % (0.2-1.0) L 02/22/20 04:10 Neut # (Auto) 27.8 x10^3/uL (2.2-4.8) H 02/22/20 04:10 Lymph # (Auto) 0.7 X10^3/uL (1.3-2.9) L 02/22/20 04:10 [place] # (Auto) 0.9 x10^3/uL (0.3-0.8) H 02/22/20 04:10 Eos # (Auto) 0.0 x10^3/uL (0.0-0.2) 02/22/20 04:10 Baso # (Auto) 0.0 X10^3/uL (0.0-0.1) 02/22/20 04:10 Absolute Nucleated RBC 0.1 /100WBC 02/22/20 04:10 Total Counted 100 02/22/20 04:10 Neutrophils % (Manual) 96 % (39-76) H 02/22/20 04:10 Lymphocytes % (Manual) 3 % (13-43) L 02/22/20 04:10 Monocytes % (Manual) 1 % (4-9) L 02/22/20 04:10 Plt Morphology Comment Normal (NORMAL) 02/22/20 04:10 RBC Morphology Normal (NORMAL) 02/22/20 04:10 ESR 93 MM/HOUR (0-20) H 02/20/20 14:05 D-Dimer 0.64 ug/ml (0.0-0.57) H* 02/20/20 14:05 Sample Site Rb 02/20/20 14:11 ABG pH 7.490 (7.35-7.45) H 02/20/20 14:11 ABG pCO2 29.0 mmHg (35.0-45.0) L 02/20/20 14:11 ABG pO2 57.0 mmHg (80.0-100.0) L 02/20/20 14:11 ABG HCO3 22.1 mmol/L (22-26) 02/20/20 14:11 ABG O2 Saturation 92.0 % (90-100) 02/20/20 14:11 ABG Base Excess -0.3 mmol/L (-2.0-2.0) 02/20/20 14:11 Ryan Test Pos 02/20/20 14:11 A-a Gradient 106.0 mmHg 02/20/20 14:11 FiO2 28.0 02/20/20 14:11 Blood Gas Comments Pt [facility] 02/20/20 14:11 Sodium 138 mmol/L (136-145) 02/22/20 04:10 Corrected Sodium 141 mmol/L (136-145) 02/22/20 04:10 Potassium 3.4 mmol/L (3.5-5.1) L 02/22/20 04:10 Chloride 107 mmol/L (98-107) 02/22/20 04:10 Carbon Dioxide 24.6 mmol/L (21-32) 02/22/20 04:10 BUN 11 mg/dL (7-18) 02/22/20 04:10 Creatinine 0.98 mg/dL (0.55-1.02) 02/22/20 04:10 Est GFR (MDRD) Af Amer > 60 (>60) 02/22/20 04:10 Est GFR (MDRD) Non-Af 58 (>60) L 02/22/20 04:10 Glucose 212 mg/dL (65-99) H 02/22/20 04:10 Hemoglobin A1c 6.2 % 02/21/20 04:14 Calcium 9.0 mg/dL (8.5-10.1) 02/22/20 04:10 Corrected Calcium 10.4 mg/dL (8.5-10.1) H 02/22/20 04:10 Magnesium 2.1 mg/dL (1.7-2.9) 02/22/20 04:10 Ferritin 588 ng/mL (8-252) H 02/21/20 04:14 Total Bilirubin 0.20 mg/dL (0.2-1.0) 02/22/20 04:10 AST 25 Units/L (15-37) 02/22/20 04:10 ALT 26 Units/L (12-78) 02/22/20 04:10 Alkaline Phosphatase 90 Units/L (46-116) 02/22/20 04:10 Creatine Kinase 62 Units/L (26-192) 02/20/20 13:42 CK-MB (CK-2) < 1.0 ng/mL (0-4.0) 02/20/20 13:42 CK/CKMB % Calc 1.6 % (<4) 02/20/20 13:42 Troponin I < 0.02 ng/mL (0-1.5) 02/20/20 13:42 C-Reactive Protein 234.70 mg/L (0-3.0) H 02/21/20 04:14 Total Protein 6.4 g/dL (6.4-8.2) 02/22/20 04:10 Albumin 2.2 g/dL (3.4-5.0) L 02/22/20 04:10 Globulin 4.2 g/dL (2.5-4.5) 02/22/20 04:10 Albumin/Globulin Ratio 0.5 Ratio (1.1-2.1) L 02/22/20 04:10 Blood Type O POSITIVE 02/20/20 13:13 Plan (1) Acute respiratory failure due to COVID-19: Status: Acute (2) Pneumonia due to COVID-19 virus: Status: Acute (3) Hypoxia: Status: Acute (4) CAD (coronary artery disease): Status: Acute Qualifiers: Associated angina: with unspecified angina Coronary Disease-Associated Artery/Lesion type: unspecified vessel or lesion type (5) Hypokalemia: Status: Acute
[2020-02-22] MEDS: ZITHROMAX INJ 500 MG VIAL 500 MG in D5W 250 ML IV 250 ML IV SCH (11:20)
[2020-02-22] MEDS: PULMICORT NEB TX 0.5 MG NEB SCH ×2 (12:15→20:25)
[2020-02-22] MEDS: XANAX PO SCH ×2 (13:16→21:00)
[2020-02-22] MEDS ORDERED: TYLENOL 325 MG TAB PO PRN (13:49)
[2020-02-23] MEDS: DUONEB 0.5 MG/3 MG (3 mL) NEB SCH ×6 (00:15→21:30)
[2020-02-23 05:31] LABS: BLOOD UREA NITROGEN 14 mg/dL (7-18); CALCIUM 9.1 mg/dL (8.5-10.1); CARBON DIOXIDE 23.6 mmol/L (21-32); CHLORIDE 106 mmol/L (98-107); COR NA(FOR HYPERGLY) 143 mmol/L (136-145); CREATININE 1.02 mg/dL (0.55-1.02); SODIUM 141 mmol/L (136-145); eGFR NON BLACK RACES 56 (>60)
[2020-02-23 05:33] LABS: BASOPHILS % (AUTO) 0.1 % (0.2-1.0); HEMATOCRIT 41.8 % (36.0-47.0); HEMOGLOBIN 13.8 g/dL (12.0-16.0); LYMPHOCYTES # (AUTO) 0.6 X10^3/uL (1.3-2.9); LYMPHOCYTES % (AUTO) 1.8 % (21.0-51.0); MEAN CORPUSCULAR HEMOGLOBIN 29.9 pg (27.0-34.0); MEAN CORPUSCULAR HGB CONC 33.1 g/dL (33.0-35.0); MEAN CORPUSCULAR VOLUME 90.4 fL (80.0-100.0); MEAN PLATELET VOLUME 9.8 fL (7.4-11.0); MONOCYTES % (AUTO) 3.2 % (0.0-13.0); NEUTROPHILS % (AUTO) 94.9 % (42.0-75.0); PLATELET COUNT 332 X10^3/uL (150.0-450.0); RED BLOOD COUNT 4.62 X10^6/uL (3.5-5.4); RED CELL DISTRIBUTION WIDTH 14.3 % (11.6-16.5)
[2020-02-23 05:39] LABS: WHITE BLOOD COUNT 31.6 X10^3/uL (3.6-10.0)
[2020-02-23 05:54] LABS: PLATELET MORPHOLOGY COMMENT NORMAL (NORMAL)
[2020-02-23] MEDS: NS 1000 ML 1,000 ML IV SCH (06:33)
[2020-02-23] MEDS: SOLU-Medrol 125 MG VIAL IVP SCH (06:35)
[2020-02-23] MEDS: ZOSYN VIAL 3.375 GRAMS 3.375 G in NS 100 ML IV + SPIKE MINIBAG* 100 ML IV SCH ×3 (06:36→21:29)
[2020-02-23] MEDS: PULMICORT NEB TX 0.5 MG NEB SCH ×2 (08:30→21:30)
[2020-02-23] MEDS: ASPIRIN EC 81 MG PO SCH (09:05)
[2020-02-23] MEDS: LOPRESSOR TAB 25 MG PO SCH ×2 (09:05→20:12)
[2020-02-23] MEDS: PEPCID TAB 20 MG PO SCH (09:06)
[2020-02-23] MEDS: XANAX PO SCH ×5 (09:06→20:59)
[2020-02-23] MEDS: REMDESIVIR (INVESTIGATIONAL DRUG GS-5734) 100 MG in NS 250 ML IV 250 ML IV SCH (09:06)
[2020-02-23] MEDS: PROTONIX INJ 40 MG VIAL IVP SCH (09:07)
[2020-02-23] MEDS: PLAQUENIL PO SCH ×2 (09:07→20:13)
[2020-02-23] MEDS: LOVENOX INJ 40 MG SYR SC SCH (09:07)
[2020-02-23] MEDS: ASCORBIC ACID INJ MULTI-DOSE VIAL 1,500 MG in NS 100 ML IV 100 ML IV SCH ×2 (09:08→20:12)
[2020-02-23] MEDS: MIRAPEX TAB 1 MG PO SCH ×2 (09:13→20:12)
--- NOTE | 2020-02-23 10:04 | RAD ---
HISTORYcovidSTUDYAP chest [id number]/19/2020FINDINGSContinued normal heart size. There are increasing nodular infiltr ates in the left upper lobe. There is interval improvement in confluent airspace disease in the right upper lung. No pneumothorax or pleural fluid is demonstrated.IMPRESSIONBilateral pulmonary infiltrat es with rapid interval change since 1 day earlier. This may represent covid pneumonia, although the r apid interval change is suggestive of a component of pulmonary edema.Electronically signed by: MARTINA ALMENDAREZ (Feb 23, 2020 10:03:32)
[2020-02-23] MEDS ORDERED: MOTRIN TAB 600 MG PO PRN (10:19)
[2020-02-23] MEDS ORDERED: ZOFRAN INJ 4 MG VIAL IVP PRN (10:19)
[2020-02-23] MEDS ORDERED: LASIX IVP ONE (10:24)
[2020-02-23] MEDS: NORCO 7.5/325 MG TAB PO SCH ×2 (10:37→20:58)
[2020-02-23] MEDS: ZITHROMAX INJ 500 MG VIAL 500 MG in D5W 250 ML IV 250 ML IV SCH (10:40)
--- NOTE | 2020-02-23 10:48 | PCM.PROG ---
Progress Note Progress Note for Day of Date of Exam: 02/23/20 Subjective Subjective: Patient seen at bedside, reports still feeling as if she can't take a deep breath. He was restless last night. She is currently on 4L and sitting up on a chair. She reports mild dry cough. She reports having increased anxiety. She has been afebrile. Denies N/V/D, reports lose stools 3-4 times a day. She has decreased appetite. She has received one dose of plasma on 02/21/20. Labs: WBC: 31.5, Hgb: 13.8 BUN/Cr: 14/1.02 Blood Cx neg so far, sputum pending CXR today worsening infiltrates concerning for pulmonary edema. Could likely be due to plasma transfusion causing TRALI/TACO reaction. Plan: Will DC IVF, give one dose Lasix IV 40 mg. Due to elevated WBC, will repeat blood cultures, UA, stool studies, C.diff and CRP. Switch solumedrol to decadron, continue Zosyn and Azithro, continue Remdesivir. Add Ensure with each meal, Zofran prn for nausea. Increase Xanax to TID. Dr. Arenas has been consulted as patient and daughter states it's been hard to get IV access, possible port placement tomorrow. Patient is NPO past midnight. Past Medical Family Social History Past Med/Fam/Surg Hx: Changes noted (describe) Allergies: Allergies codeine Allergy (Verified 02/18/20 11:03) Review of Systems ROS: No change since H&P and Changes notes (describe) Vital Signs and I&O's Vital Signs: Temperature 97.8 F Pulse Rate [Left Radial] 93 Pulse Rate 95 Respiratory Rate 29 Blood Pressure [Right Arm] 148/67 Blood Pressure [Left Arm] 142/64 Blood Pressure 133/57 O2 Sat by Pulse Oximetry 97 Intake and Output: Intake & Output 02/20/20 02/21/20 02/22/20 02/23/20 23:59 23:59 23:59 23:59 Intake Total 976 / 976 4596 / 4596 3908 / 3908 1071 / 1071 Balance 976 / 976 4596 / 4596 3908 / 3908 1071 / 1071 Physical Exam Oriented: Normal Eyes: Normal Ear: Normal Nose: Normal Throat: Dry Respiratory: Generalized, Diminished and Rales Cardiovascular: Tachycardia; negative Edema Auscultation: Bowel Sounds: Normal Tenderness: Normal Skin: Decreased [place], Bruising and Ecchymosis Musculoskeletal: Normal Psychiatric: Anxiety Mood Description: Anxious Affect: Anxious Speech Pattern: Clear and Appropriate Laboratory and Diagnostics Result Diagrams: 02/23/20 04:10 02/23/20 04:10 Labs: 02/22/20 17:33 Sputum - Expectorated Sputum Sputum Culture - Preliminary 02/22/20 17:33 Sputum - Expectorated Sputum - Final 02/20/20 13:50 Blood Blood Culture - Preliminary 02/20/20 13:42 Blood Blood Culture - Preliminary Laboratory WBC 31.6 X10^3/uL (3.6-10.0) H* 02/23/20 04:10 RBC 4.62 X10^6/uL (3.5-5.4) 02/23/20 04:10 Hgb 13.8 g/dL (12.0-16.0) 02/23/20 04:10 Hct 41.8 % (36.0-47.0) 02/23/20 04:10 MCV 90.4 fL (80.0-100.0) 02/23/20 04:10 MCH 29.9 pg (27.0-34.0) 02/23/20 04:10 MCHC 33.1 g/dL (33.0-35.0) 02/23/20 04:10 RDW 14.3 % (11.6-16.5) 02/23/20 04:10 Plt Count 332 X10^3/uL (150.0-450.0) 02/23/20 04:10 Plt Count Comment Increased (ADEQUATE) A 02/23/20 04:10 MPV 9.8 fL (7.4-11.0) 02/23/20 04:10 Neut % (Auto) 94.9 % (42.0-75.0) H 02/23/20 04:10 Lymph % (Auto) 1.8 % (21.0-51.0) L 02/23/20 04:10 [place] % (Auto) 3.2 % (0.0-13.0) 02/23/20 04:10 Eos % (Auto) 0.0 % (0.9-2.9) L 02/23/20 04:10 Baso % (Auto) 0.1 % (0.2-1.0) L 02/23/20 04:10 Neut # (Auto) 30.0 x10^3/uL (2.2-4.8) H 02/23/20 04:10 Lymph # (Auto) 0.6 X10^3/uL (1.3-2.9) L 02/23/20 04:10 [place] # (Auto) 1.0 x10^3/uL (0.3-0.8) H 02/23/20 04:10 Eos # (Auto) 0.0 x10^3/uL (0.0-0.2) 02/23/20 04:10 Baso # (Auto) 0.0 X10^3/uL (0.0-0.1) 02/23/20 04:10 Absolute Nucleated RBC 0.0 /100WBC 02/23/20 04:10 Total Counted 100 02/23/20 04:10 Neutrophils % (Manual) 95 % (39-76) H 02/23/20 04:10 Lymphocytes % (Manual) 3 % (13-43) L 02/23/20 04:10 Monocytes % (Manual) 2 % (4-9) L 02/23/20 04:10 Plt Morphology Comment Normal (NORMAL) 02/23/20 04:10 RBC Morphology Normal (NORMAL) 02/23/20 04:10 ESR 93 MM/HOUR (0-20) H 02/20/20 14:05 D-Dimer 0.64 ug/ml (0.0-0.57) H* 02/20/20 14:05 Sample Site Rb 02/20/20 14:11 ABG pH 7.490 (7.35-7.45) H 02/20/20 14:11 ABG pCO2 29.0 mmHg (35.0-45.0) L 02/20/20 14:11 ABG pO2 57.0 mmHg (80.0-100.0) L 02/20/20 14:11 ABG HCO3 22.1 mmol/L (22-26) 02/20/20 14:11 ABG O2 Saturation 92.0 % (90-100) 02/20/20 14:11 ABG Base Excess -0.3 mmol/L (-2.0-2.0) 02/20/20 14:11 Ryan Test Pos 02/20/20 14:11 A-a Gradient 106.0 mmHg 02/20/20 14:11 FiO2 28.0 02/20/20 14:11 Blood Gas Comments Pt [facility] 02/20/20 14:11 Sodium 141 mmol/L (136-145) 02/23/20 04:10 Corrected Sodium 143 mmol/L (136-145) 02/23/20 04:10 Potassium 3.8 mmol/L (3.5-5.1) 02/23/20 04:10 Chloride 106 mmol/L (98-107) 02/23/20 04:10 Carbon Dioxide 23.6 mmol/L (21-32) 02/23/20 04:10 BUN 14 mg/dL (7-18) 02/23/20 04:10 Creatinine 1.02 mg/dL (0.55-1.02) 02/23/20 04:10 Est GFR (MDRD) Af Amer > 60 (>60) 02/23/20 04:10 Est GFR (MDRD) Non-Af 56 (>60) L 02/23/20 04:10 Glucose 170 mg/dL (65-99) H 02/23/20 04:10 Hemoglobin A1c 6.2 % 02/21/20 04:14 Calcium 9.1 mg/dL (8.5-10.1) 02/23/20 04:10 Corrected Calcium 10.4 mg/dL (8.5-10.1) H 02/22/20 04:10 Magnesium 2.1 mg/dL (1.7-2.9) 02/22/20 04:10 Ferritin 588 ng/mL (8-252) H 02/21/20 04:14 Total Bilirubin 0.20 mg/dL (0.2-1.0) 02/22/20 04:10 AST 25 Units/L (15-37) 02/22/20 04:10 ALT 26 Units/L (12-78) 02/22/20 04:10 Alkaline Phosphatase 90 Units/L (46-116) 02/22/20 04:10 Creatine Kinase 62 Units/L (26-192) 02/20/20 13:42 CK-MB (CK-2) < 1.0 ng/mL (0-4.0) 02/20/20 13:42 CK/CKMB % Calc 1.6 % (<4) 02/20/20 13:42 Troponin I < 0.02 ng/mL (0-1.5) 02/20/20 13:42 C-Reactive Protein 51.60 mg/L (0-3.0) H 02/23/20 04:10 Total Protein 6.4 g/dL (6.4-8.2) 02/22/20 04:10 Albumin 2.2 g/dL (3.4-5.0) L 02/22/20 04:10 Globulin 4.2 g/dL (2.5-4.5) 02/22/20 04:10 Albumin/Globulin Ratio 0.5 Ratio (1.1-2.1) L 02/22/20 04:10 Blood Type O POSITIVE 02/20/20 13:13 Plan (1) Acute respiratory failure due to COVID-19: Status: Acute (2) Pneumonia due to COVID-19 virus: Status: Acute Plan: ADMIT, ICU, ISOLATION CXR AND ABG ON ADMISSION, EKG AND CARDIAC MONITORING, CE ON ADMISSION. IV HYDRATION, STRICT I&OS, IV ZITHROMAX AND ZOSYN IV REMDESIVIR, CONVALESCENT PLASMA, IV SOLU MEDROL SUPPLEMENTAL O2, BP CONTROL, BLOOD AND SPUTUM CULTURES ON ADMISSION VERIFY HOME MEDICATION (3) Hypoxia: Status: Acute (4) CAD (coronary artery disease): Status: Acute Qualifiers: Associated angina: with unspecified angina Coronary Disease-Associated Artery/Lesion type: unspecified vessel or lesion type (5) Hypokalemia: Status: Acute
[2020-02-23] MEDS: NYSTATIN SUSP PO SCH ×2 (12:03→20:13)
[2020-02-23] MEDS: DECADRON TAB PO SCH (12:03)
[2020-02-23 18:02] LABS: BILIRUBIN,URINE NEGATIVE (NEGATIVE); BLOOD/HEMOGLOBIN,URINE NEGATIVE (NEGATIVE); GLUCOSE, URINE NEGATIVE (NEGATIVE); KETONES,URINE NEGATIVE (NEGATIVE); LEUKOCYTE ESTERASE ,URINE NEGATIVE (NEGATIVE); NITRITES,URINE NEGATIVE (NEGATIVE); PROTEIN,URINE NEGATIVE (NEGATIVE); UROBILINOGEN,URINE NORMAL (NORMAL)
[2020-02-23 18:05] LABS: APPEARANCE,URINE CLEAR (CLEAR); COLOR,URINE PALE YELLOW (YELLOW)
[2020-02-24] MEDS: DUONEB 0.5 MG/3 MG (3 mL) NEB SCH ×2 (01:24→05:00)
[2020-02-24] MEDS: ZOSYN VIAL 3.375 GRAMS 3.375 G in NS 100 ML IV + SPIKE MINIBAG* 100 ML IV SCH ×3 (05:00→21:08)
[2020-02-24 05:20] LABS: BASOPHILS % (AUTO) 0.2 % (0.2-1.0); HEMATOCRIT 38.3 % (36.0-47.0); HEMOGLOBIN 12.9 g/dL (12.0-16.0); LYMPHOCYTES % (AUTO) 4.2 % (21.0-51.0); MEAN CORPUSCULAR HEMOGLOBIN 30.4 pg (27.0-34.0); MEAN CORPUSCULAR HGB CONC 33.7 g/dL (33.0-35.0); MEAN PLATELET VOLUME 9.4 fL (7.4-11.0); MONOCYTES % (AUTO) 4.2 % (0.0-13.0); NEUTROPHILS % (AUTO) 91.4 % (42.0-75.0); PLATELET COUNT 292 X10^3/uL (150.0-450.0); RED BLOOD COUNT 4.26 X10^6/uL (3.5-5.4); RED CELL DISTRIBUTION WIDTH 14.4 % (11.6-16.5)
[2020-02-24] MEDS: XANAX PO SCH ×3 (05:20→21:08)
[2020-02-24 05:28] LABS: BLOOD UREA NITROGEN 17 mg/dL (7-18); CARBON DIOXIDE 27.6 mmol/L (21-32); CHLORIDE 103 mmol/L (98-107); COR NA(FOR HYPERGLY) 141 mmol/L (136-145); CREATININE 0.94 mg/dL (0.55-1.02); SODIUM 139 mmol/L (136-145); eGFR NON BLACK RACES > 60 (>60)
[2020-02-24 06:12] LABS: PLATELET MORPHOLOGY COMMENT NORMAL (NORMAL)
[2020-02-24] MEDS: ZITHROMAX INJ 500 MG VIAL 500 MG in D5W 250 ML IV 250 ML IV SCH (08:45)
[2020-02-24] MEDS: REMDESIVIR (INVESTIGATIONAL DRUG GS-5734) 100 MG in NS 250 ML IV 250 ML IV SCH (09:15)
[2020-02-24 09:20] LABS: ABG BASE EXCESS 2.2 mmol/L (-2.0-2.0); ABG HCO3 24.7 mmol/L (22-26)
[2020-02-24] MEDS: PULMICORT NEB TX 0.5 MG NEB SCH ×2 (09:50→21:55)
[2020-02-24] MEDS: ASCORBIC ACID INJ MULTI-DOSE VIAL 1,500 MG in NS 100 ML IV 100 ML IV SCH ×2 (09:53→20:30)
[2020-02-24] MEDS: ASPIRIN EC 81 MG PO SCH (09:53)
[2020-02-24] MEDS: DECADRON TAB PO SCH (09:54)
[2020-02-24] MEDS: PLAQUENIL PO SCH (09:54)
[2020-02-24] MEDS: PEPCID TAB 20 MG PO SCH (09:55)
[2020-02-24] MEDS: NYSTATIN SUSP PO SCH ×2 (09:55→20:33)
[2020-02-24] MEDS: LOVENOX INJ 40 MG SYR SC SCH (09:56)
[2020-02-24] MEDS: LOPRESSOR TAB 25 MG PO SCH ×2 (09:57→20:31)
[2020-02-24] MEDS: MIRAPEX TAB 1 MG PO SCH ×2 (09:59→20:45)
[2020-02-24] MEDS: NORCO 7.5/325 MG TAB PO SCH ×2 (09:59→20:32)
[2020-02-24] MEDS: PROTONIX INJ 40 MG VIAL IVP SCH (10:00)
--- NOTE | 2020-02-24 10:01 | DR.UPDATE ---
H&P Update History and Physical Update: History and Physical reviewed and patient examined. Changes noted: NO Yes with the following:will place picc for IV access. H&P Reviewed: Yes Patient was examined?: Yes Procedures (ALL) - Central Line Placement PCM.CLCO: written consent Time out performed: Yes Patient placed pm monitor/pulse ox: Yes prep: mask, gown, gloves, other Centrial line prep: chlorhexidine scrub, sterile drapes applied Local anesthsia used: lidocane 1% Ultrasound used for placement: Yes (right basilic id'd via u/s) Central line lumen ininserted: double (5.5fr arrowpicc. 50cm total length, 7cm exposed. catheter not trimmed.) Post procedure: good blood return, all ports aspirated, flushed,capped, sterile dressing applied Post procedure xray: tip oc catheter in good position, no pneumothorax seen Patient tolerated procedure: Yes Complications: none
--- NOTE | 2020-02-24 10:07 | RAD ---
HISTORYPICC LINE PLACEMENT, COVID +STUDYCHEST, 1 VIEWCOMPARISONNoneTECHNIQUEAP view of the chest 4 imagesFINDINGSCardiac silhouette is borderline in size. There is diffuse bilateral airspace disease. Right upper extremity PICC line terminates good position on final images. No pleural effusion or pneumothorax.IMPRESSIONRight upper extremity PICC line in good position on final images. Diffuse bilateral airspace disease.Electronically signed by: iNcholas Cantor (Feb 24, 2020 10:07:35)
[2020-02-24] MEDS: DIFLUCAN 200 MG IV PREMIX* 200 MG/100 ML BAG IV SCH (11:30)
[2020-02-24] MEDS: XOPENEX 1.25 MG/3 ML NEBULE NEB SCH ×3 (11:55→21:55)
[2020-02-24] MEDS ORDERED: ZESTRIL TAB 5 MG PO SCH (18:00)
[2020-02-25] MEDS: XOPENEX 1.25 MG/3 ML NEBULE NEB SCH ×4 (00:05→17:18)
[2020-02-25] MEDS: ZOSYN VIAL 3.375 GRAMS 3.375 G in NS 100 ML IV + SPIKE MINIBAG* 100 ML IV SCH ×3 (05:00→21:54)
[2020-02-25] MEDS: XANAX PO SCH ×3 (05:11→21:17)
[2020-02-25 05:27] LABS: BASOPHILS # (AUTO) 0.1 X10^3/uL (0.0-0.1); BASOPHILS % (AUTO) 0.3 % (0.2-1.0); HEMATOCRIT 38.2 % (36.0-47.0); HEMOGLOBIN 13.1 g/dL (12.0-16.0); LYMPHOCYTES # (AUTO) 0.8 X10^3/uL (1.3-2.9); LYMPHOCYTES % (AUTO) 3.9 % (21.0-51.0); MEAN CORPUSCULAR HEMOGLOBIN 30.7 pg (27.0-34.0); MEAN CORPUSCULAR HGB CONC 34.2 g/dL (33.0-35.0); MEAN CORPUSCULAR VOLUME 89.6 fL (80.0-100.0); MEAN PLATELET VOLUME 8.6 fL (7.4-11.0); MONOCYTES # (AUTO) 0.9 x10^3/uL (0.3-0.8); MONOCYTES % (AUTO) 4.5 % (0.0-13.0); NEUTROPHILS # (AUTO) 18.7 x10^3/uL (2.2-4.8); NEUTROPHILS % (AUTO) 91.3 % (42.0-75.0); PLATELET COUNT 283 X10^3/uL (150.0-450.0); RED BLOOD COUNT 4.27 X10^6/uL (3.5-5.4); RED CELL DISTRIBUTION WIDTH 14.3 % (11.6-16.5); WHITE BLOOD COUNT 20.5 X10^3/uL (3.6-10.0)
[2020-02-25 05:39] LABS: ALANINE AMINOTRANSFERASE 37 Units/L (12-78); ALKALINE PHOSPHATASE 85 Units/L (46-116); ASPARTATE AMINO TRANSFERASE 28 Units/L (15-37); BLOOD UREA NITROGEN 15 mg/dL (7-18); CALCIUM 8.5 mg/dL (8.5-10.1); CARBON DIOXIDE 27.5 mmol/L (21-32); CHLORIDE 102 mmol/L (98-107); COR CA(FOR HYPOALB) 10.1 mg/dL (8.5-10.1); COR NA(FOR HYPERGLY) 138 mmol/L (136-145); CREATININE 0.82 mg/dL (0.55-1.02); SODIUM 137 mmol/L (136-145); TOTAL PROTEIN 5.9 g/dL (6.4-8.2); eGFR NON BLACK RACES > 60 (>60)
[2020-02-25 06:13] LABS: PLATELET MORPHOLOGY COMMENT NORMAL (NORMAL)
[2020-02-25] MEDS: ASCORBIC ACID INJ MULTI-DOSE VIAL 1,500 MG in NS 100 ML IV 100 ML IV SCH ×2 (08:13→21:14)
[2020-02-25] MEDS: DECADRON TAB PO SCH (08:49)
[2020-02-25] MEDS: LOPRESSOR TAB 25 MG PO SCH ×2 (08:49→21:15)
[2020-02-25] MEDS: ASPIRIN EC 81 MG PO SCH (08:49)
[2020-02-25] MEDS: ZESTRIL TAB 5 MG PO SCH (08:50)
[2020-02-25] MEDS: NYSTATIN SUSP PO SCH ×4 (08:50→21:17)
[2020-02-25] MEDS: PROTONIX INJ 40 MG VIAL IVP SCH (08:51)
[2020-02-25] MEDS: PEPCID TAB 20 MG PO SCH (08:51)
[2020-02-25] MEDS: NORCO 7.5/325 MG TAB PO SCH ×2 (08:51→21:15)
[2020-02-25] MEDS: DIFLUCAN 200 MG IV PREMIX* 200 MG/100 ML BAG IV SCH (08:52)
[2020-02-25] MEDS: LOVENOX INJ 40 MG SYR SC SCH (08:52)
[2020-02-25] MEDS ORDERED: REMDESIVIR (INVESTIGATIONAL DRUG GS-5734) 100 MG in NS 250 ML IV 250 ML IV SCH (09:00)
[2020-02-25] MEDS: PULMICORT NEB TX 0.5 MG NEB SCH ×2 (09:45→21:07)
[2020-02-25] MEDS: ZITHROMAX INJ 500 MG VIAL 500 MG in D5W 250 ML IV 250 ML IV SCH (10:00)
[2020-02-25] MEDS: MIRAPEX TAB 1 MG PO SCH ×2 (10:00→21:54)
[2020-02-26] MEDS: XANAX PO SCH ×3 (05:00→21:46)
[2020-02-26] MEDS: ZOSYN VIAL 3.375 GRAMS 3.375 G in NS 100 ML IV + SPIKE MINIBAG* 100 ML IV SCH ×3 (05:00→21:46)
--- NOTE | 2020-02-26 05:02 | RAD ---
STUDY: CHEST, 1 VIEWCOMPARISON: February 24, 2020HISTORY: PNEUMONIAFINDINGS:Persistent diffuse alveolar airspace disease is seen throughout the right and left lung which is not significant change from prior study. Right PICC line is stable. Cardiomediastinal contour is stable. No pleural effusion or pneumothorax is seen. Stable tenting of the right hemidiaphragm is notedIMPRESSION:There is no significant change from prior studyElectronically signed by: Miles Lopez (Feb 26, 2020 05:01:36)
[2020-02-26 05:22] LABS: ABG BASE EXCESS 5.5 mmol/L (-2.0-2.0); ABG HCO3 28.9 mmol/L (22-26)
[2020-02-26 05:23] LABS: ABG ALLEN TEST POS
[2020-02-26] MEDS: XOPENEX 1.25 MG/3 ML NEBULE NEB SCH ×5 (05:26→16:47)
[2020-02-26 06:22] LABS: BASOPHILS % (AUTO) 0.2 % (0.2-1.0); EOSINOPHILS % (AUTO) 0.1 % (0.9-2.9); HEMATOCRIT 38.4 % (36.0-47.0); HEMOGLOBIN 13.2 g/dL (12.0-16.0); LYMPHOCYTES # (AUTO) 0.8 X10^3/uL (1.3-2.9); LYMPHOCYTES % (AUTO) 4.1 % (21.0-51.0); MEAN CORPUSCULAR HEMOGLOBIN 30.4 pg (27.0-34.0); MEAN CORPUSCULAR HGB CONC 34.3 g/dL (33.0-35.0); MEAN CORPUSCULAR VOLUME 88.6 fL (80.0-100.0); MEAN PLATELET VOLUME 8.7 fL (7.4-11.0); MONOCYTES # (AUTO) 0.8 x10^3/uL (0.3-0.8); MONOCYTES % (AUTO) 4.4 % (0.0-13.0); NEUTROPHILS # (AUTO) 17.1 x10^3/uL (2.2-4.8); NEUTROPHILS % (AUTO) 91.2 % (42.0-75.0); PLATELET COUNT 303 X10^3/uL (150.0-450.0); RED BLOOD COUNT 4.33 X10^6/uL (3.5-5.4); RED CELL DISTRIBUTION WIDTH 14.7 % (11.6-16.5); WHITE BLOOD COUNT 18.7 X10^3/uL (3.6-10.0)
[2020-02-26 06:31] LABS: ALANINE AMINOTRANSFERASE 33 Units/L (12-78); ALKALINE PHOSPHATASE 88 Units/L (46-116); ASPARTATE AMINO TRANSFERASE 18 Units/L (15-37); BLOOD UREA NITROGEN 15 mg/dL (7-18); CALCIUM 8.7 mg/dL (8.5-10.1); CARBON DIOXIDE 30.3 mmol/L (21-32); CHLORIDE 103 mmol/L (98-107); COR CA(FOR HYPOALB) 10.3 mg/dL (8.5-10.1); COR NA(FOR HYPERGLY) 139 mmol/L (136-145); CREATININE 0.76 mg/dL (0.55-1.02); SODIUM 138 mmol/L (136-145); TOTAL PROTEIN 6.5 g/dL (6.4-8.2); eGFR NON BLACK RACES > 60 (>60)
[2020-02-26 07:40] LABS: BAND NEUTROPHILS % 2 % (0-10); PLATELET MORPHOLOGY COMMENT NORMAL (NORMAL)
[2020-02-26] MEDS: LOVENOX INJ 40 MG SYR SC SCH (08:15)
[2020-02-26] MEDS: DECADRON TAB PO SCH (08:15)
[2020-02-26] MEDS: PEPCID TAB 20 MG PO SCH (08:15)
[2020-02-26] MEDS: LOPRESSOR TAB 25 MG PO SCH ×2 (08:15→21:42)
[2020-02-26] MEDS: PROTONIX INJ 40 MG VIAL IVP SCH (08:15)
[2020-02-26] MEDS: DIFLUCAN 200 MG IV PREMIX* 200 MG/100 ML BAG IV SCH (08:15)
[2020-02-26] MEDS: ASPIRIN EC 81 MG PO SCH (08:15)
[2020-02-26] MEDS: NORCO 7.5/325 MG TAB PO SCH ×2 (08:15→21:42)
[2020-02-26] MEDS: MIRAPEX TAB 1 MG PO SCH ×2 (08:15→21:42)
[2020-02-26] MEDS: NYSTATIN SUSP PO SCH ×4 (08:15→21:44)
[2020-02-26] MEDS: ZESTRIL TAB 5 MG PO SCH (08:15)
[2020-02-26] MEDS: PULMICORT NEB TX 0.5 MG NEB SCH ×2 (08:30→20:20)
[2020-02-26] MEDS: ASCORBIC ACID INJ MULTI-DOSE VIAL 1,500 MG in NS 100 ML IV 100 ML IV SCH ×2 (09:23→21:39)
[2020-02-26] MEDS: LEVAQUIN PREMIX IV 750 MG 750 MG/150 ML BAG IV SCH (09:47)
[2020-02-26] MEDS ORDERED: NS 1000 ML 1,000 ML ONE (21:29)
[2020-02-27] MEDS: XOPENEX 1.25 MG/3 ML NEBULE NEB SCH ×3 (00:25→12:30)
[2020-02-27 05:37] LABS: BASOPHILS % (AUTO) 0.1 % (0.2-1.0); EOSINOPHILS # (AUTO) 0.7 x10^3/uL (0.0-0.2); EOSINOPHILS % (AUTO) 3.5 % (0.9-2.9); HEMATOCRIT 38.2 % (36.0-47.0); HEMOGLOBIN 13.2 g/dL (12.0-16.0); LYMPHOCYTES # (AUTO) 0.8 X10^3/uL (1.3-2.9); LYMPHOCYTES % (AUTO) 4.4 % (21.0-51.0); MEAN CORPUSCULAR HGB CONC 34.5 g/dL (33.0-35.0); MEAN CORPUSCULAR VOLUME 89.9 fL (80.0-100.0); MEAN PLATELET VOLUME 8.8 fL (7.4-11.0); MONOCYTES # (AUTO) 1.1 x10^3/uL (0.3-0.8); MONOCYTES % (AUTO) 5.6 % (0.0-13.0); NEUTROPHILS # (AUTO) 16.7 x10^3/uL (2.2-4.8); NEUTROPHILS % (AUTO) 86.4 % (42.0-75.0); PLATELET COUNT 297 X10^3/uL (150.0-450.0); RED BLOOD COUNT 4.25 X10^6/uL (3.5-5.4); RED CELL DISTRIBUTION WIDTH 14.2 % (11.6-16.5); WHITE BLOOD COUNT 19.3 X10^3/uL (3.6-10.0)
[2020-02-27 05:40] LABS: ALANINE AMINOTRANSFERASE 29 Units/L (12-78); ALKALINE PHOSPHATASE 95 Units/L (46-116); ASPARTATE AMINO TRANSFERASE 16 Units/L (15-37); BLOOD UREA NITROGEN 18 mg/dL (7-18); CALCIUM 8.8 mg/dL (8.5-10.1); CARBON DIOXIDE 27.3 mmol/L (21-32); CHLORIDE 101 mmol/L (98-107); COR CA(FOR HYPOALB) 10.4 mg/dL (8.5-10.1); COR NA(FOR HYPERGLY) 138 mmol/L (136-145); CREATININE 0.74 mg/dL (0.55-1.02); SODIUM 136 mmol/L (136-145); TOTAL PROTEIN 6.5 g/dL (6.4-8.2); eGFR NON BLACK RACES > 60 (>60)
[2020-02-27] MEDS: XANAX PO SCH ×3 (05:44→21:53)
[2020-02-27] MEDS: ZOSYN VIAL 3.375 GRAMS 3.375 G in NS 100 ML IV + SPIKE MINIBAG* 100 ML IV SCH ×3 (05:48→21:53)
[2020-02-27 06:09] LABS: PLATELET MORPHOLOGY COMMENT NORMAL (NORMAL)
[2020-02-27] MEDS: PROTONIX INJ 40 MG VIAL IVP SCH (08:00)
[2020-02-27] MEDS: NYSTATIN SUSP PO SCH ×4 (08:00→21:52)
[2020-02-27] MEDS: ZESTRIL TAB 5 MG PO SCH (08:00)
[2020-02-27] MEDS: LOVENOX INJ 40 MG SYR SC SCH (08:00)
[2020-02-27] MEDS: PEPCID TAB 20 MG PO SCH (08:01)
[2020-02-27] MEDS: DECADRON TAB PO SCH (08:01)
[2020-02-27] MEDS: LOPRESSOR TAB 25 MG PO SCH ×2 (08:01→21:50)
[2020-02-27] MEDS: DIFLUCAN 200 MG IV PREMIX* 200 MG/100 ML BAG IV SCH (08:01)
[2020-02-27] MEDS: ASPIRIN EC 81 MG PO SCH (08:01)
[2020-02-27] MEDS: NORCO 7.5/325 MG TAB PO SCH ×2 (08:02→21:52)
[2020-02-27] MEDS: MIRAPEX TAB 1 MG PO SCH ×2 (08:02→21:51)
[2020-02-27] MEDS: PULMICORT NEB TX 0.5 MG NEB SCH ×2 (08:45→21:05)
[2020-02-27] MEDS: ASCORBIC ACID INJ MULTI-DOSE VIAL 1,500 MG in NS 100 ML IV 100 ML IV SCH ×2 (09:08→21:50)
[2020-02-27] MEDS: LEVAQUIN PREMIX IV 750 MG 750 MG/150 ML BAG IV SCH (10:15)
[2020-02-28] MEDS: XOPENEX 1.25 MG/3 ML NEBULE NEB SCH ×3 (00:50→13:15)
[2020-02-28 04:57] LABS: BASOPHILS % (AUTO) 0.1 % (0.2-1.0); EOSINOPHILS % (AUTO) 0.1 % (0.9-2.9); HEMATOCRIT 37.9 % (36.0-47.0); HEMOGLOBIN 12.8 g/dL (12.0-16.0); LYMPHOCYTES # (AUTO) 0.9 X10^3/uL (1.3-2.9); LYMPHOCYTES % (AUTO) 5.5 % (21.0-51.0); MEAN CORPUSCULAR HEMOGLOBIN 30.4 pg (27.0-34.0); MEAN CORPUSCULAR HGB CONC 33.8 g/dL (33.0-35.0); MEAN PLATELET VOLUME 8.7 fL (7.4-11.0); MONOCYTES # (AUTO) 1.2 x10^3/uL (0.3-0.8); MONOCYTES % (AUTO) 7.3 % (0.0-13.0); NEUTROPHILS # (AUTO) 14.3 x10^3/uL (2.2-4.8); PLATELET COUNT 301 X10^3/uL (150.0-450.0); RED BLOOD COUNT 4.21 X10^6/uL (3.5-5.4); RED CELL DISTRIBUTION WIDTH 14.4 % (11.6-16.5); WHITE BLOOD COUNT 16.4 X10^3/uL (3.6-10.0)
[2020-02-28 05:03] LABS: ALANINE AMINOTRANSFERASE 26 Units/L (12-78); ALBUMIN 2.1 g/dL (3.4-5.0); ALKALINE PHOSPHATASE 84 Units/L (46-116); ASPARTATE AMINO TRANSFERASE 13 Units/L (15-37); BLOOD UREA NITROGEN 19 mg/dL (7-18); CARBON DIOXIDE 30.3 mmol/L (21-32); CHLORIDE 99 mmol/L (98-107); COR CA(FOR HYPOALB) 10.5 mg/dL (8.5-10.1); COR NA(FOR HYPERGLY) 137 mmol/L (136-145); CREATININE 0.73 mg/dL (0.55-1.02); SODIUM 135 mmol/L (136-145); TOTAL PROTEIN 6.3 g/dL (6.4-8.2); eGFR NON BLACK RACES > 60 (>60)
[2020-02-28 05:23] LABS: BAND NEUTROPHILS % 2 % (0-10); PLATELET MORPHOLOGY COMMENT NORMAL (NORMAL)
[2020-02-28] MEDS: ZOSYN VIAL 3.375 GRAMS 3.375 G in NS 100 ML IV + SPIKE MINIBAG* 100 ML IV SCH (05:39)
[2020-02-28] MEDS: XANAX PO SCH ×2 (05:55→14:04)
[2020-02-28 08:45] LABS: ABG ALLEN TEST POS; ABG BASE EXCESS 5.4 mmol/L (-2.0-2.0)
[2020-02-28] MEDS: DIFLUCAN 200 MG IV PREMIX* 200 MG/100 ML BAG IV SCH (08:45)
[2020-02-28] MEDS ORDERED: MILK OF MAGNESIA PO SCH (09:00)
[2020-02-28] MEDS ORDERED: COLACE CAP 100 MG PO SCH (09:00)
[2020-02-28] MEDS: PULMICORT NEB TX 0.5 MG NEB SCH (09:00)
[2020-02-28] MEDS: ASCORBIC ACID INJ MULTI-DOSE VIAL 1,500 MG in NS 100 ML IV 100 ML IV SCH (09:10)
[2020-02-28] MEDS: ASPIRIN EC 81 MG PO SCH (09:12)
[2020-02-28] MEDS: LEVAQUIN PREMIX IV 750 MG 750 MG/150 ML BAG IV SCH (09:13)
[2020-02-28] MEDS: LOPRESSOR TAB 25 MG PO SCH (09:13)
[2020-02-28] MEDS: MIRAPEX TAB 1 MG PO SCH (09:14)
[2020-02-28] MEDS: NORCO 7.5/325 MG TAB PO SCH (09:15)
[2020-02-28] MEDS: NYSTATIN SUSP PO SCH ×2 (09:16→14:03)
[2020-02-28] MEDS: PEPCID TAB 20 MG PO SCH (09:17)
[2020-02-28] MEDS: PROTONIX INJ 40 MG VIAL IVP SCH (09:17)
[2020-02-28] MEDS: ZESTRIL TAB 5 MG PO SCH (09:18)
[2020-02-28] MEDS: LOVENOX INJ 40 MG SYR SC SCH (09:21)
[2020-02-28] MEDS: DECADRON TAB PO SCH (09:21)
--- NOTE | 2020-02-28 09:58 | RAD ---
HISTORYSOB, COVID +STUDYCHEST, 1 [id number]/2020TECHNIQUEAP view of the chestFINDINGSCardiac and mediastinal contours are within normal limits. Right upper extremity PICC line in good position. Stable scattered bilateral airspace opacities. Tented right hemidiaphragm. Blunted costophrenic sulci. No pneumothorax.IMPRESSIONNo significant change in findings of multifocal pneumonia. Suspect small pleural effusionsElectronically signed by: Nicholas Cantor (Feb 28, 2020 09:57:18)
[2020-02-28 14:46] VITALS: BP 132/67
== END 2020-02-28 14:35 | disposition home health service (06) | DRG 177 ==
LOC: ICU 11:38
PROVIDERS: ADMIT Internal Medicine; ATTEND Internal Medicine
DX: I87.2 Venous insufficiency (chronic) (peripheral); K21.9 Gastro-esophageal reflux disease without esophagitis; I25.10 Atherosclerotic heart disease of native coronary artery without angina pectoris; J96.01 Acute respiratory failure with hypoxia; E87.6 Hypokalemia; R94.31 Abnormal electrocardiogram [ECG] [EKG]; J12.89 Other viral pneumonia; I10 Essential (primary) hypertension; J15.0 Pneumonia due to Klebsiella pneumoniae; R60.0 Localized edema; U07.1 COVID-19

== ENCOUNTER 2021-05-04 14:21 | Observation (INO) ==
--- NOTE | 2021-05-04 15:06 | DR.EXTPAIN ---
HPI Time seen Time Seen by Provider: 05/04/21 14:30 PCP Primary Care Physician: MORENA UREÑA Complaint/Symptoms Chief Complaint Doctor Comments: 80 y/o female presents with right leg pain over the past several weeks, denies known trauma. Leg started swelling yesterday, saw her pain management MD, sent here for Doppler. Referred her from radiology after Doppler reportedly + for DVT (report not available yet). Pt with pain of the right leg - from thigh on down to foot. Pain constant, dull, sharp at times. + worse with ambulation, moving. Nothing makes it better. Has bruising of the RLE, with swelling. Denies chest pain, dyspnea, fever or chills. Chief Complaint:: PT. C/O PAIN TO RIGHT LOWER LEG X 4 WEEKS. PT. STATES HER LEG STARTED SWELLING MONDAY. PT. HAD AN OUT PATIENT VENOUS DOPPLER DONE TODAY WHICH REVEALED SHE HAD A BLOOD CLOT. PT. HAS SIGNIFICANT SWELLING AND BRUISING TO RIGHT LEG. COVID-19 Coronavirus risk:travel/contact w/high risk person: No Has patient experienced Coronavirus symptoms: No Nurses notes reviewed Nurses Notes Review: Yes Source History Provided: Patient Mode of arrival Mode of Arrival: Wheelchair Timing Onset of Chief Complaint: 04/06/21 PMH PMH Past Medical History: Yes Past Medical History: COPD and Coronary Artery Disease Past Medical History Comment: UTERINE CANCER Past Surgical History: Yes Surgical History: Hysterectomy, Ortho Surgery and Other Past Surgical History Comment: BLADDER TACT Family History History of Family Medical Conditions: Yes Family Medical History: Cancer Social History Does patient currently use any type of tobacco product: No Have you used tobacco products in the last 12 months: No Type of Tobacco Use: None Does any household member use tobacco: No Alcohol Use: None Do you use any recreational Drugs:: No Lives With: Family Lives Where: Home Travel Risk Coronavirus risk:travel/contact w/high risk person: No Has patient experienced Coronavirus symptoms: No Infectious screening In the last 2 months have you had wt loss of >10#?: NO Have you had fever, night sweats or hemotysis?: No Have you traveled outside the country in the last 6 months?: No Isolation: Standard ROS Review of Systems Constitutional: No Symptoms Reported Eyes: No Symptoms Reported ENTM: No Symptoms Reported Respiratoy: No Symptoms Reported Cardiovascular: No Symptoms Reported Gastrointestinal/Abdominal: No Symptoms Reported Genitourinary: No Symptoms Reported Neurological: No Symptoms Reported Musculoskeletal: Right and Leg Integumentary: Rash (RLE) Hematologic/Lymphatic: negative Easy Bleeding Endocrine: No Symptoms Reported Psychiatric: No Symptoms Reported All Other Systems: Reviewed and Negative PE Vital Signs Vitals: Temperature 97.6 F Pulse Rate 93 Respiratory Rate 18 Blood Pressure [Right Arm] 148/67 Blood Pressure [Left Arm] 142/64 Blood Pressure 146/75 O2 Sat by Pulse Oximetry 98 General Limitations: No Limitations General Appearance: Alert and In No Apparent Distress Head Head Exam: Normal Inspection Eyes Eye exam: Normal Appearance ENT ENT Exam: Normal Exam Neck Neck Exam: Normal Inspection and Full ROM Chest Chest Inspection: Normal Inspection Respiratory Respiratory Exam: Normal Lung Sounds Bilat; negative Accessory Muscle Use and Respiratory Distress Respiratory Exam: Bilateral: Clear to Auscultation Cardiovascular Cardiovascular Exam: Regular Rate, Normal Rhythm and Normal Heart Sounds Abdominal Exam Abdominal Exam: Normal Inspection, Normal Bowel Sounds and Soft; negative Tenderness Extremities Extremities Exam: Tenderness (right thigh, right calf) and Edema (right lower leg, 3-4+ pitting edema) Neurological Neurological Exam: Alert, Oriented X3 and CN II-XII Intact; negative Motor Sensory Deficit Psychiatric Psychiatric Exam: Normal Affect Skin Skin Exam: Warm, Dry and Other (marked areas of petechiae of the right lower ext) MDM Differential Diagnosis Differential Diagnosis: Other (DVT, cellulitis) COURSE Treatment Treatment: 80 y/o female with RLE pain x weeks, now with swelling x few days. Sent from radiology after Doppler + for DVT of RLE. Report shows pt has DVT of the common femoral vein, superficial femoral vein, and the popliteal vein. W/u performed, no other acute abnormalities evident. 1630 - discussed with covering hospitalist, Dr Lainez. Will admit and start on heparin drip. ROR Labs Reviewed Laboratory Results Reviewed?: Yes Result Diagrams: 05/04/21 15:15 05/04/21 15:15 Laboratory: WBC 12.7 X10^3/uL (3.6-10.0) H 05/04/21 15:15 RBC 4.48 X10^6/uL (3.5-5.4) 05/04/21 15:15 Hgb 13.6 g/dL (12.0-16.0) 05/04/21 15:15 Hct 39.8 % (36.0-47.0) 05/04/21 15:15 MCV 88.7 fL (80.0-100.0) 05/04/21 15:15 MCH 30.3 pg (27.0-34.0) 05/04/21 15:15 MCHC 34.1 g/dL (33.0-35.0) 05/04/21 15:15 RDW 14.2 % (11.6-16.5) 05/04/21 15:15 Plt Count 184 X10^3/uL (150.0-450.0) 05/04/21 15:15 MPV 9.0 fL (7.4-11.0) 05/04/21 15:15 Neut % (Auto) 76.1 % (42.0-75.0) H 05/04/21 15:15 Lymph % (Auto) 13.0 % (21.0-51.0) L 05/04/21 15:15 [place] % (Auto) 7.1 % (0.0-13.0) 05/04/21 15:15 Eos % (Auto) 3.0 % (0.9-2.9) H 05/04/21 15:15 Baso % (Auto) 0.8 % (0.2-1.0) 05/04/21 15:15 Neut # (Auto) 9.6 x10^3/uL (2.2-4.8) H 05/04/21 15:15 Lymph # (Auto) 1.7 X10^3/uL (1.3-2.9) 05/04/21 15:15 [place] # (Auto) 0.9 x10^3/uL (0.3-0.8) H 05/04/21 15:15 Eos # (Auto) 0.4 x10^3/uL (0.0-0.2) H 05/04/21 15:15 Baso # (Auto) 0.1 X10^3/uL (0.0-0.1) 05/04/21 15:15 Absolute Nucleated RBC 0.0 /100WBC 05/04/21 15:15 PT 13.1 SECONDS (11.8-14.3) 05/04/21 15:15 INR Target Range - 05/04/21 15:15 INR 1.04 (0.8-1.3) 05/04/21 15:15 APTT 27.5 SECONDS (22.9-36.5) 05/04/21 15:15 PTT Comment - 05/04/21 15:15 Sodium 138 mmol/L (136-145) 05/04/21 15:15 Corrected Sodium 139 mmol/L (136-145) 05/04/21 15:15 Potassium 3.5 mmol/L (3.5-5.1) 05/04/21 15:15 Chloride 102 mmol/L (98-107) 05/04/21 15:15 Carbon Dioxide 29.5 mmol/L (21-32) 05/04/21 15:15 BUN 23 mg/dL (7-18) H 05/04/21 15:15 Creatinine 0.94 mg/dL (0.55-1.02) 05/04/21 15:15 Est GFR (MDRD) Af Amer > 60 (>60) 05/04/21 15:15 Est GFR (MDRD) Non-Af > 60 (>60) 05/04/21 15:15 Glucose 122 mg/dL (65-99) H 05/04/21 15:15 Calcium 8.7 mg/dL (8.5-10.1) 05/04/21 15:15 Corrected Calcium TNP 05/04/21 15:15 Total Bilirubin 0.50 mg/dL (0.2-1.0) 05/04/21 15:15 AST 12 Units/L (15-37) L 05/04/21 15:15 ALT 17 Units/L (12-78) 05/04/21 15:15 Alkaline Phosphatase 93 Units/L (46-116) 05/04/21 15:15 Creatine Kinase 30 Units/L (26-192) 05/04/21 15:15 CK-MB (CK-2) < 1.0 ng/mL (0-4.0) 05/04/21 15:15 CK/CKMB % Calc 3.3 % (<4) 05/04/21 15:15 Troponin I < 0.02 ng/mL (0-1.5) 05/04/21 15:15 Total Protein 6.9 g/dL (6.4-8.2) 05/04/21 15:15 Albumin 3.4 g/dL (3.4-5.0) 05/04/21 15:15 Globulin 3.5 g/dL (2.5-4.5) 05/04/21 15:15 Albumin/Globulin Ratio 1.0 Ratio (1.1-2.1) L 05/04/21 15:15 Other Results Comments: Labs acceptable XRAY XRAY Interpreted by: Radiologist X-ray Results: RLE venous Doppler with extensive DVTs. CXR - no acute abnormalities EKG Rate: 79 [place]: Normal Rhythm: NSR Block: LBBB ST: Nonsp Opioid Opioid Risk Tool Age ([place] box if 16-45): No History of Preadolescent Sexual Abuse: No Total: 0 Total Score Risk Category: Low Risk Copyright: Ty CHAPMAN predicting aberrant behaviors Diagnosis Discharge Problem: Acute deep vein thrombosis (DVT) of right lower extremity Qualifiers: Affected thrombotic vein of extremity: femoral Qualified Code(s): I82.411 - Acute embolism and thrombosis of right femoral vein
[2021-05-04 15:26] LABS: BASOPHILS # (AUTO) 0.1 X10^3/uL (0.0-0.1); BASOPHILS % (AUTO) 0.8 % (0.2-1.0); EOSINOPHILS # (AUTO) 0.4 x10^3/uL (0.0-0.2); HEMATOCRIT 39.8 % (36.0-47.0); HEMOGLOBIN 13.6 g/dL (12.0-16.0); LYMPHOCYTES # (AUTO) 1.7 X10^3/uL (1.3-2.9); MEAN CORPUSCULAR HEMOGLOBIN 30.3 pg (27.0-34.0); MEAN CORPUSCULAR HGB CONC 34.1 g/dL (33.0-35.0); MEAN CORPUSCULAR VOLUME 88.7 fL (80.0-100.0); MONOCYTES # (AUTO) 0.9 x10^3/uL (0.3-0.8); MONOCYTES % (AUTO) 7.1 % (0.0-13.0); NEUTROPHILS # (AUTO) 9.6 x10^3/uL (2.2-4.8); NEUTROPHILS % (AUTO) 76.1 % (42.0-75.0); PLATELET COUNT 184 X10^3/uL (150.0-450.0); RED BLOOD COUNT 4.48 X10^6/uL (3.5-5.4); RED CELL DISTRIBUTION WIDTH 14.2 % (11.6-16.5); WHITE BLOOD COUNT 12.7 X10^3/uL (3.6-10.0)
[2021-05-04 15:57] LABS: ALANINE AMINOTRANSFERASE 17 Units/L (12-78); ALBUMIN 3.4 g/dL (3.4-5.0); ALKALINE PHOSPHATASE 93 Units/L (46-116); ASPARTATE AMINO TRANSFERASE 12 Units/L (15-37); BLOOD UREA NITROGEN 23 mg/dL (7-18); CALCIUM 8.7 mg/dL (8.5-10.1); CARBON DIOXIDE 29.5 mmol/L (21-32); CHLORIDE 102 mmol/L (98-107); CKMB % 3.3 % (<4); COR NA(FOR HYPERGLY) 139 mmol/L (136-145); CREATINE KINASE 30 Units/L (26-192); CREATINE KINASE MB < 1.0 ng/mL (0-4.0); CREATININE 0.94 mg/dL (0.55-1.02); SODIUM 138 mmol/L (136-145); TOTAL PROTEIN 6.9 g/dL (6.4-8.2); TROPONIN I < 0.02 ng/mL (0-1.5); eGFR NON BLACK RACES > 60 (>60)
--- NOTE | 2021-05-04 16:17 | RAD ---
CHEST, 1 VIEWHISTORY: RECENT DVTStudy: AP view of the chest.Comparison:NoneFindings:The cardiomediastinal silhouette is normal. No focal consolidations, pleural effusions or pneumothorax. Osseous structures demonstrate no acute abnormality. Bilateral hyperexpansion and interstitial prominence.IMPRESSION:1. No acute cardiopulmonary process.2. Findings of COPD.Electronically signed by: SUSIE NGUYEN (May 04, 2021 16:16:06)
[2021-05-04] MEDS ORDERED: HEPARIN SODIUM INJ 5000 UNITS IVP ONE (17:14)
[2021-05-04] MEDS ORDERED: HEPARIN SODIUM IN D5W 25,000 UNITS/500 ML BAG IV PRN (17:14)
[2021-05-04] MEDS ORDERED: MORPHINE SULFATE INJ 4 MG IVP ONE (17:28)
[2021-05-04] MEDS ORDERED: MORPHINE SULFATE INJ 4 MG ONE (17:40)
--- NOTE | 2021-05-04 17:49 | DR.H&P ---
H&P - Chief Complaint Chief Complaint: Right lower extremity pain - History of Present Illness History of Present Illness: Patient is an 80 year old white female who is being admitted due to acute RLE DVT. Patient reports she has been experiencing pain to right lower ext for 5 weeks. States the swelling and bruising began yesterday. Patient had an outpatient ultrasound of RLE which revealed an acute DVT. Denies CP, SOB, changes in appetite or bladder and bowel habits. PCP Ai Holm. PMH HTN, CAD with stent, OA, COPD. - Past Medical History Past Medical History: COPD, Coronary Artery Disease, Hypertension - Past Surgical History Surgical History: Hysterectomy, Ortho Surgery, Other - Family History Family Medical History: Cancer - Social History Does patient currently use any type of tobacco product: No Have you used tobacco products in the last 12 months: No Type of Tobacco Use: None Does any household member use tobacco: No Alcohol Use: None - Medications Home Medications: codeine Allergy (Verified 05/04/21 14:25) CONTINUE taking the following medications alendronate mg PO 05/04/21 [History] clonazepam 05/04/21 [History] collagenase clostridium histo. [Santyl] TOPICAL 05/04/21 [History] gabapentin 05/04/21 [History] prednisone 05/04/21 [History] rosuvastatin mg 05/04/21 [History] - Review of Systems Constitutional: See HPI Eyes: See HPI ENT: See HPI Respiratory: See HPI Cardiovascular: See HPI Gastrointestinal: See HPI Genitourinary: See HPI Musculoskeletal: See HPI Skin: See HPI Neurological: See HPI - Physical Exam Vital Signs: Temperature 97.6 F Pulse Rate 81 Respiratory Rate 18 Blood Pressure [Right Arm] 148/67 Blood Pressure [Left Arm] 142/64 Blood Pressure 176/79 O2 Sat by Pulse Oximetry 98 Oriented: Normal, Time, Person, Place Eyes: Normal Ear: Normal Nose: Normal Throat: Normal Respiratory: Clear Throughout Cardiovascular: Normal, Edema (bilateral lower ext +2 edema) : Normal Auscultation: Bowel Sounds: Normal Palpation: Normal Tenderness: Normal Skin: Bruising (Bruising to all extremities (patient on blood thinners); right lower ext bruising more pronounced. ) Musculoskeletal: Knee, Leg (Right lower ext tenderness upon palpitation; generalized joint and back tenderness (history of OA)) Psychiatric: Normal Mood Description: Calm Affect: Normal Speech Pattern: Clear, Appropriate - Assessment/Plan (1) Leg pain, right Status: Acute Plan: Pain control (2) Acute deep vein thrombosis (DVT) of right lower extremity Qualifiers: Affected thrombotic vein of extremity: femoral Qualified Code(s): I82.411 - Acute embolism and thrombosis of right femoral vein Status: Acute Plan: Heparin drip; plan to transfer [facility] to [facility] in am. Heparin drip protocol. Repeat labs in am. Verify home meds (3) CAD (coronary artery disease) Qualifiers: Coronary Disease-Associated Artery/Lesion type: unspecified vessel or lesion type [place] vs. transplanted heart: [place] heart Associated angina: without angina Qualified Code(s): I25.10 - Atherosclerotic heart disease of [place] coronary artery without angina pectoris Status: Chronic Plan: Monitor; chronic; home meds (4) Hypertension Qualifiers: Hypertension type: primary hypertension Qualified Code(s): I10 - Essential (primary) hypertension Status: Acute Plan: BP control - Review Patient was examined?: Yes - Allergies Allergies/Adverse Reactions: Allergies Allergy/AdvReac Type Severity Reaction Status Date / Time codeine Allergy Verified 05/04/21 14:25
[2021-05-04 18:36] LABS: BILIRUBIN,URINE NEGATIVE (NEGATIVE); BLOOD/HEMOGLOBIN,URINE 1+ (NEGATIVE); GLUCOSE, URINE NEGATIVE (NEGATIVE); KETONES,URINE NEGATIVE (NEGATIVE); LEUKOCYTE ESTERASE ,URINE 3+ (NEGATIVE); NITRITES,URINE NEGATIVE (NEGATIVE); PROTEIN,URINE 1+ (NEGATIVE); UROBILINOGEN,URINE NORMAL (NORMAL)
[2021-05-04 18:51] LABS: APPEARANCE,URINE CLEAR (CLEAR); COLOR,URINE YELLOW (YELLOW)
[2021-05-04 18:52] LABS: BACTERIA,URINE 1+ /HPF (NEGATIVE); SQUAMOUS EPITHELIAL CELL,UR RARE /HPF (NEGATIVE)
[2021-05-04] MEDS ORDERED: PROVENTIL NEB TX 0.083% 2.5MG/ 3ML ONE (19:44)
[2021-05-04] MEDS: PROVENTIL NEB TX 0.083% 2.5MG/ 3ML NEB SCH (20:30)
[2021-05-04] MEDS: MORPHINE SULFATE INJ 2 MG INJ IVP PRN (20:58)
[2021-05-05 05:56] LABS: BASOPHILS # (AUTO) 0.1 X10^3/uL (0.0-0.1); BASOPHILS % (AUTO) 0.9 % (0.2-1.0); EOSINOPHILS # (AUTO) 0.4 x10^3/uL (0.0-0.2); EOSINOPHILS % (AUTO) 3.8 % (0.9-2.9); HEMATOCRIT 38.8 % (36.0-47.0); HEMOGLOBIN 13.5 g/dL (12.0-16.0); LYMPHOCYTES # (AUTO) 1.8 X10^3/uL (1.3-2.9); LYMPHOCYTES % (AUTO) 19.1 % (21.0-51.0); MEAN CORPUSCULAR HEMOGLOBIN 30.3 pg (27.0-34.0); MEAN CORPUSCULAR HGB CONC 34.7 g/dL (33.0-35.0); MEAN CORPUSCULAR VOLUME 87.2 fL (80.0-100.0); MEAN PLATELET VOLUME 8.9 fL (7.4-11.0); MONOCYTES # (AUTO) 0.8 x10^3/uL (0.3-0.8); MONOCYTES % (AUTO) 8.8 % (0.0-13.0); NEUTROPHILS # (AUTO) 6.4 x10^3/uL (2.2-4.8); NEUTROPHILS % (AUTO) 67.4 % (42.0-75.0); PLATELET COUNT 180 X10^3/uL (150.0-450.0); RED BLOOD COUNT 4.45 X10^6/uL (3.5-5.4); RED CELL DISTRIBUTION WIDTH 14.9 % (11.6-16.5); WHITE BLOOD COUNT 9.4 X10^3/uL (3.6-10.0)
[2021-05-05 06:03] LABS: ALANINE AMINOTRANSFERASE 17 Units/L (12-78); ALBUMIN 3.2 g/dL (3.4-5.0); ALKALINE PHOSPHATASE 88 Units/L (46-116); ASPARTATE AMINO TRANSFERASE 11 Units/L (15-37); BLOOD UREA NITROGEN 14 mg/dL (7-18); CALCIUM 8.6 mg/dL (8.5-10.1); CARBON DIOXIDE 26.6 mmol/L (21-32); CHLORIDE 103 mmol/L (98-107); COR CA(FOR HYPOALB) 9.2 mg/dL (8.5-10.1); CREATININE 0.78 mg/dL (0.55-1.02); SODIUM 140 mmol/L (136-145); TOTAL PROTEIN 6.7 g/dL (6.4-8.2); eGFR NON BLACK RACES > 60 (>60)
[2021-05-05] MEDS ORDERED: HEPARIN SODIUM INJ 5000 UNITS IVP ONE (06:11)
[2021-05-05] MEDS ORDERED: HEPARIN SODIUM INJ 5000 UNITS ONE (06:12)
[2021-05-05] MEDS: PROVENTIL NEB TX 0.083% 2.5MG/ 3ML NEB SCH ×3 (06:13→20:47)
[2021-05-05] MEDS: MORPHINE SULFATE INJ 2 MG INJ IVP PRN ×4 (06:31→19:45)
[2021-05-05] MEDS: TOPROL XL PO SCH (09:25)
[2021-05-05] MEDS: PEPCID TAB 40 MG PO SCH (17:31)
[2021-05-05 19:33] VITALS: BMI 30.6
[2021-05-05] MEDS ORDERED: ELIQUIS ONE ×2 (19:52→19:59)
[2021-05-05] MEDS: ELIQUIS PO SCH (21:00)
[2021-05-05] MEDS ORDERED: KLONOPIN TAB 1 MG ONE (21:21)
[2021-05-05] MEDS ORDERED: KLONOPIN TAB 1 MG PO SCH (22:00)
[2021-05-06] MEDS: MORPHINE SULFATE INJ 2 MG INJ IVP PRN ×3 (01:23→12:41)
[2021-05-06] MEDS: PROVENTIL NEB TX 0.083% 2.5MG/ 3ML NEB SCH (05:00)
[2021-05-06 07:07] LABS: BASOPHILS # (AUTO) 0.1 X10^3/uL (0.0-0.1); BASOPHILS % (AUTO) 0.6 % (0.2-1.0); EOSINOPHILS # (AUTO) 0.2 x10^3/uL (0.0-0.2); EOSINOPHILS % (AUTO) 1.7 % (0.9-2.9); HEMATOCRIT 41.4 % (36.0-47.0); HEMOGLOBIN 14.1 g/dL (12.0-16.0); LYMPHOCYTES # (AUTO) 1.5 X10^3/uL (1.3-2.9); LYMPHOCYTES % (AUTO) 11.4 % (21.0-51.0); MEAN CORPUSCULAR HEMOGLOBIN 30.2 pg (27.0-34.0); MEAN CORPUSCULAR HGB CONC 34.1 g/dL (33.0-35.0); MEAN CORPUSCULAR VOLUME 88.6 fL (80.0-100.0); NEUTROPHILS # (AUTO) 10.3 x10^3/uL (2.2-4.8); NEUTROPHILS % (AUTO) 78.3 % (42.0-75.0); PLATELET COUNT 201 X10^3/uL (150.0-450.0); RED BLOOD COUNT 4.66 X10^6/uL (3.5-5.4); RED CELL DISTRIBUTION WIDTH 14.5 % (11.6-16.5); WHITE BLOOD COUNT 13.1 X10^3/uL (3.6-10.0)
[2021-05-06 07:22] LABS: ALANINE AMINOTRANSFERASE 17 Units/L (12-78); ALBUMIN 3.2 g/dL (3.4-5.0); ALKALINE PHOSPHATASE 90 Units/L (46-116); ASPARTATE AMINO TRANSFERASE 12 Units/L (15-37); BLOOD UREA NITROGEN 12 mg/dL (7-18); CARBON DIOXIDE 24.2 mmol/L (21-32); CHLORIDE 104 mmol/L (98-107); COR CA(FOR HYPOALB) 9.6 mg/dL (8.5-10.1); COR NA(FOR HYPERGLY) 140 mmol/L (136-145); CREATININE 0.87 mg/dL (0.55-1.02); SODIUM 140 mmol/L (136-145); TOTAL PROTEIN 6.9 g/dL (6.4-8.2); eGFR NON BLACK RACES > 60 (>60)
[2021-05-06] MEDS: ELIQUIS PO SCH (09:22)
[2021-05-06] MEDS: PEPCID TAB 40 MG PO SCH (09:22)
[2021-05-06] MEDS: TOPROL XL PO SCH (09:22)
[2021-05-06] MEDS ORDERED: BUTT CREAM (COMPOUND) ONE (12:35)
[2021-05-06 12:39] LABS: APPEARANCE,URINE CLOUDY (CLEAR); COLOR,URINE YELLOW (YELLOW)
[2021-05-06 12:40] LABS: BILIRUBIN,URINE NEGATIVE (NEGATIVE); BLOOD/HEMOGLOBIN,URINE 4+ (NEGATIVE); GLUCOSE, URINE NEGATIVE (NEGATIVE); KETONES,URINE 1+ (NEGATIVE); LEUKOCYTE ESTERASE ,URINE 2+ (NEGATIVE); NITRITES,URINE NEGATIVE (NEGATIVE); PROTEIN,URINE 2+ (NEGATIVE); RBC,URINE 20-30 /HPF (0-3); UROBILINOGEN,URINE 2+ (NORMAL)
[2021-05-06 12:41] LABS: BACTERIA,URINE 4+ /HPF (NEGATIVE); SQUAMOUS EPITHELIAL CELL,UR NEGATIVE /HPF (NEGATIVE)
[2021-05-06 13:56] VITALS: BP 150/96
== END 2021-05-06 13:40 | disposition home health service (06) ==
LOC: ER 14:21 → ICU 17:36 → INTOOBSV 17:36 → ICU 17:55
PROVIDERS: ADMIT Internal Medicine; ATTEND Internal Medicine
DX: I25.10 Atherosclerotic heart disease of native coronary artery without angina pectoris; I10 Essential (primary) hypertension; B96.1 Klebsiella pneumoniae [K. pneumoniae] as the cause of diseases classified elsewhere; I82.431 Acute embolism and thrombosis of right popliteal vein; Z20.822 Contact with and (suspected) exposure to COVID-19; M79.604 Pain in right leg; I82.411 Acute embolism and thrombosis of right femoral vein; R94.31 Abnormal electrocardiogram [ECG] [EKG]; B96.29 Other Escherichia coli [E. coli] as the cause of diseases classified elsewhere; N39.0 Urinary tract infection, site not specified; R79.1 Abnormal coagulation profile

== ENCOUNTER 2021-05-30 06:44 | Observation (INO) ==
--- NOTE | 2021-05-30 07:25 | DR.EXTPAIN ---
HPI <Rolando Buitrago - Last Filed: 05/30/21 07:52> Time seen Time Seen by Provider: 05/30/21 07:13 PCP Primary Care Physician: SAEID Complaint/Symptoms Chief Complaint Doctor Comments: 80 y/o female presents with pain and swelling of her RLE. Was diagnosed with DVT 3 weeks ago, R thigh, on Eliquis. Developed swelling of the RLE. Having blisters of the RLE that are leaking. Swlling was worse. Running low grade temp yesterday, with nausea. No chills, but always cold. Has a dry cough, no dyspnea. No bowel or bladder issues. Chief Complaint:: PATIENT C/O RT LOWER EXT SWELLING AND PAIN. PATIENT STATES SHE WAS DIAGNOSED WITH DVT AND HAS BEEN BEING TREATED FOR THAT WITH ELIQUIS, BUT THE SWELLING IS GETTING WORSE AND IS NOW LEAKING . NOTED BLISTERS TO BE TO RT LOWER EXT AND WRAPPED WITH A WILLIE BANDAGE COVID-19 Coronavirus risk:travel/contact w/high risk person: No Has patient experienced Coronavirus symptoms: No Nurses notes reviewed Nurses Notes Review: Yes Source History Provided: Patient Mode of arrival Mode of Arrival: Wheelchair Timing Onset of Chief Complaint: 05/23/21 PMH <Rolando Buitrago - Last Filed: 05/30/21 07:52> PMH Past Medical History: Yes Past Medical History: CHF, COPD, Coronary Artery Disease, Dyslipidemia, GERD and Hypertension Past Surgical History: Yes Surgical History: Hysterectomy, Ortho Surgery and Other Family History History of Family Medical Conditions: Yes Family Medical History: Diabetes Mellitus, MD and Hypertension Social History Does any household member use tobacco: No Alcohol Use: None Do you use any recreational Drugs:: No Lives With: Family Lives Where: Home Travel Risk Coronavirus risk:travel/contact w/high risk person: No Has patient experienced Coronavirus symptoms: No Infectious screening In the last 2 months have you had wt loss of >10#?: NO Have you had fever, night sweats or hemotysis?: No Have you traveled outside the country in the last 6 months?: No Isolation: Standard ROS <Rolando Buitrago - Last Filed: 05/30/21 07:52> Review of Systems Constitutional: Fever and Weakness Eyes: No Symptoms Reported ENTM: No Symptoms Reported Respiratoy: Dry Cough Cardiovascular: Edema Gastrointestinal/Abdominal: Nausea Genitourinary: No Symptoms Reported Neurological: No Symptoms Reported Musculoskeletal: Right and Leg Integumentary: Bruises (RLE) Hematologic/Lymphatic: Blood Clots Psychiatric: No Symptoms Reported All Other Systems: Reviewed and Negative PE <Rolando Buitrago - Last Filed: 05/30/21 07:52> Vital Signs Vitals: Temperature 98.0 F Pulse Rate 81 Respiratory Rate 20 Blood Pressure [Right Arm] 148/67 Blood Pressure [Left Arm] 135/77 Blood Pressure 237/105 O2 Sat by Pulse Oximetry 97 General Limitations: No Limitations General Appearance: Alert and In No Apparent Distress Eyes Eye exam: Normal Appearance, PERRL and EOMI ENT ENT Exam: Normal Exam Neck Neck Exam: Normal Inspection and Full ROM Chest Chest Inspection: Normal Inspection Respiratory Respiratory Exam: Normal Lung Sounds Bilat; negative Accessory Muscle Use and Respiratory Distress Respiratory Exam: Bilateral: Clear to Auscultation Cardiovascular Cardiovascular Exam: Regular Rate, Normal Rhythm and Normal Heart Sounds Abdominal Exam Abdominal Exam: Normal Inspection, Normal Bowel Sounds and Soft; negative Tenderness Extremities Extremities Exam: Edema (RLE with 4+ edema, with scattered purpura, very tender of campo region, + oozing serous fluid anteriorly. Good distal pulses, warm, no cyanosis.) <HUMBERTO DAVIS - Last Filed: 05/30/21 11:09> Vital Signs Vitals: Temperature 98.0 F Pulse Rate 81 Respiratory Rate 20 Blood Pressure [Right Arm] 148/67 Blood Pressure [Left Arm] 135/77 Blood Pressure 237/105 O2 Sat by Pulse Oximetry 97 [facility] <Rolando Buitrago - Last Filed: 05/30/21 07:52> Differential Diagnosis Differential Diagnosis: Other (Cellulitis, edema, DVT) COURSE <Rolando Buitrago - Last Filed: 05/30/21 07:52> Treatment Treatment: 80 y/o with DVT of R thigh x 3 weeks. Has had edema, which she states is improving. Having increasing pain, with fluid oozing from lower leg. Presentation concerning for cellulitis. W/u initiated. Pt will be signed over to my relief physician, Dr Davis. <HUMBERTO DAVIS - Last Filed: 05/30/21 11:09> Treatment Treatment: SEE ORDERS. PATIENT SIGN OUT TO ME BY DR. BUITRAGO AT 08:00AM. CLONIDINE 0.2MG PO IN ER. PATIENT WILL BE ADMITTED FOR FURTHER MANAGEMENT. Consultation Consultation Comments: DISCUSSED PATIENT WITH DR. COLEY. HE WILL ADMIT PATIENT. Education/Counseling Education/Counseling: Family Educated On: Diagnosis ROR <Rolando Buitrago - Last Filed: 05/30/21 07:52> Labs Reviewed Result Diagrams: 05/30/21 08:01 05/30/21 08:01 Laboratory: WBC 8.9 X10^3/uL (3.6-10.0) 05/30/21 08:01 RBC 4.51 X10^6/uL (3.5-5.4) 05/30/21 08:01 Hgb 13.8 g/dL (12.0-16.0) 05/30/21 08:01 Hct 40.4 % (36.0-47.0) 05/30/21 08:01 MCV 89.6 fL (80.0-100.0) 05/30/21 08:01 MCH 30.6 pg (27.0-34.0) 05/30/21 08:01 MCHC 34.2 g/dL (33.0-35.0) 05/30/21 08:01 RDW 15.2 % (11.6-16.5) 05/30/21 08:01 Plt Count 253 X10^3/uL (150.0-450.0) 05/30/21 08:01 MPV 8.4 fL (7.4-11.0) 05/30/21 08:01 Neut % (Auto) 63.7 % (42.0-75.0) 05/30/21 08:01 Lymph % (Auto) 25.7 % (21.0-51.0) 05/30/21 08:01 [place] % (Auto) 7.0 % (0.0-13.0) 05/30/21 08:01 Eos % (Auto) 2.8 % (0.9-2.9) 05/30/21 08:01 Baso % (Auto) 0.8 % (0.2-1.0) 05/30/21 08:01 Neut # (Auto) 5.6 x10^3/uL (2.2-4.8) H 05/30/21 08:01 Lymph # (Auto) 2.3 X10^3/uL (1.3-2.9) 05/30/21 08:01 [place] # (Auto) 0.6 x10^3/uL (0.3-0.8) 05/30/21 08:01 Eos # (Auto) 0.2 x10^3/uL (0.0-0.2) 05/30/21 08:01 Baso # (Auto) 0.1 X10^3/uL (0.0-0.1) 05/30/21 08:01 Absolute Nucleated RBC 0.1 /100WBC 05/30/21 08:01 Sodium 140 mmol/L (136-145) 05/30/21 08:01 Corrected Sodium TNP 05/30/21 08:01 Potassium 4.2 mmol/L (3.5-5.1) 05/30/21 08:01 Chloride 104 mmol/L (98-107) 05/30/21 08:01 Carbon Dioxide 27.5 mmol/L (21-32) 05/30/21 08:01 BUN 18 mg/dL (7-18) 05/30/21 08:01 Creatinine 0.85 mg/dL (0.55-1.02) 05/30/21 08:01 Est GFR (MDRD) Af Amer > 60 (>60) 05/30/21 08:01 Est GFR (MDRD) Non-Af > 60 (>60) 05/30/21 08:01 Glucose 102 mg/dL (65-99) H 05/30/21 08:01 Lactic Acid 0.5 mmol/L (0.4-2.0) 05/30/21 08:01 Calcium 9.0 mg/dL (8.5-10.1) 05/30/21 08:01 Corrected Calcium TNP 05/30/21 08:01 Total Bilirubin 0.30 mg/dL (0.2-1.0) 05/30/21 08:01 AST 18 Units/L (15-37) 05/30/21 08:01 ALT 19 Units/L (12-78) 05/30/21 08:01 Alkaline Phosphatase 81 Units/L (46-116) 05/30/21 08:01 Total Protein 6.8 g/dL (6.4-8.2) 05/30/21 08:01 Albumin 3.6 g/dL (3.4-5.0) 05/30/21 08:01 Globulin 3.2 g/dL (2.5-4.5) 05/30/21 08:01 Albumin/Globulin Ratio 1.1 Ratio (1.1-2.1) 05/30/21 08:01 Specimen Type Clean catch urine 05/30/21 09:30 Urine Color Pale yellow (YELLOW) 05/30/21 09:30 Urine Appearance Clear (CLEAR) 05/30/21 09:30 Urine pH 6.0 (5.0 - 8.0) 05/30/21 09:30 Ur Specific [place] 1.010 (1.000-1.030) 05/30/21 09:30 Urine Protein Negative (NEGATIVE) 05/30/21 09:30 Urine Glucose (UA) Negative (NEGATIVE) 05/30/21 09:30 Urine Ketones Negative (NEGATIVE) 05/30/21 09:30 Urine Occult Blood Negative (NEGATIVE) 05/30/21 09:30 Urine Nitrite Negative (NEGATIVE) 05/30/21 09:30 Urine Bilirubin Negative (NEGATIVE) 05/30/21 09:30 Urine Urobilinogen Normal (NORMAL) 05/30/21 09:30 Ur Leukocyte Esterase Negative (NEGATIVE) 05/30/21 09:30 SARS-CoV-2 (PCR) Negative (NEGATIVE) 05/30/21 09:36 Influenza Type A (PCR) Negative (NEGATIVE) 05/30/21 09:36 Influenza Type B (PCR) Negative (NEGATIVE) 05/30/21 09:36 RSV (PCR) Negative (NEGATIVE) 05/30/21 09:36 EKG Rate: 81 [place]: Normal Rhythm: NSR Block: LBBB Hypertrophy: LAE ST: Nonsp <HUMBERTO DAVIS - Last Filed: 05/30/21 11:09> Labs Reviewed Laboratory Results Reviewed?: Yes Laboratory: WBC 8.9 X10^3/uL (3.6-10.0) 05/30/21 08:01 RBC 4.51 X10^6/uL (3.5-5.4) 05/30/21 08:01 Hgb 13.8 g/dL (12.0-16.0) 05/30/21 08:01 Hct 40.4 % (36.0-47.0) 05/30/21 08:01 MCV 89.6 fL (80.0-100.0) 05/30/21 08:01 MCH 30.6 pg (27.0-34.0) 05/30/21 08:01 MCHC 34.2 g/dL (33.0-35.0) 05/30/21 08:01 RDW 15.2 % (11.6-16.5) 05/30/21 08:01 Plt Count 253 X10^3/uL (150.0-450.0) 05/30/21 08:01 MPV 8.4 fL (7.4-11.0) 05/30/21 08:01 Neut % (Auto) 63.7 % (42.0-75.0) 05/30/21 08:01 Lymph % (Auto) 25.7 % (21.0-51.0) 05/30/21 08:01 Jenkins % (Auto) 7.0 % (0.0-13.0) 05/30/21 08:01 Eos % (Auto) 2.8 % (0.9-2.9) 05/30/21 08:01 Baso % (Auto) 0.8 % (0.2-1.0) 05/30/21 08:01 Neut # (Auto) 5.6 x10^3/uL (2.2-4.8) H 05/30/21 08:01 Lymph # (Auto) 2.3 X10^3/uL (1.3-2.9) 05/30/21 08:01 [place] # (Auto) 0.6 x10^3/uL (0.3-0.8) 05/30/21 08:01 Eos # (Auto) 0.2 x10^3/uL (0.0-0.2) 05/30/21 08:01 Baso # (Auto) 0.1 X10^3/uL (0.0-0.1) 05/30/21 08:01 Absolute Nucleated RBC 0.1 /100WBC 05/30/21 08:01 Sodium 140 mmol/L (136-145) 05/30/21 08:01 Corrected Sodium TNP 05/30/21 08:01 Potassium 4.2 mmol/L (3.5-5.1) 05/30/21 08:01 Chloride 104 mmol/L (98-107) 05/30/21 08:01 Carbon Dioxide 27.5 mmol/L (21-32) 05/30/21 08:01 BUN 18 mg/dL (7-18) 05/30/21 08:01 Creatinine 0.85 mg/dL (0.55-1.02) 05/30/21 08:01 Est GFR (MDRD) Af Amer > 60 (>60) 05/30/21 08:01 Est GFR (MDRD) Non-Af > 60 (>60) 05/30/21 08:01 Glucose 102 mg/dL (65-99) H 05/30/21 08:01 Lactic Acid 0.5 mmol/L (0.4-2.0) 05/30/21 08:01 Calcium 9.0 mg/dL (8.5-10.1) 05/30/21 08:01 Corrected Calcium TNP 05/30/21 08:01 Total Bilirubin 0.30 mg/dL (0.2-1.0) 05/30/21 08:01 AST 18 Units/L (15-37) 05/30/21 08:01 ALT 19 Units/L (12-78) 05/30/21 08:01 Alkaline Phosphatase 81 Units/L (46-116) 05/30/21 08:01 Total Protein 6.8 g/dL (6.4-8.2) 05/30/21 08:01 Albumin 3.6 g/dL (3.4-5.0) 05/30/21 08:01 Globulin 3.2 g/dL (2.5-4.5) 05/30/21 08:01 Albumin/Globulin Ratio 1.1 Ratio (1.1-2.1) 05/30/21 08:01 Specimen Type Clean catch urine 05/30/21 09:30 Urine Color Pale yellow (YELLOW) 05/30/21 09:30 Urine Appearance Clear (CLEAR) 05/30/21 09:30 Urine pH 6.0 (5.0 - 8.0) 05/30/21 09:30 Ur Specific [place] 1.010 (1.000-1.030) 05/30/21 09:30 Urine Protein Negative (NEGATIVE) 05/30/21 09:30 Urine Glucose (UA) Negative (NEGATIVE) 12/26/21 09:30 Urine Ketones Negative (NEGATIVE) 05/30/21 09:30 Urine Occult Blood Negative (NEGATIVE) 05/30/21 09:30 Urine Nitrite Negative (NEGATIVE) 05/30/21 09:30 Urine Bilirubin Negative (NEGATIVE) 05/30/21 09:30 Urine Urobilinogen Normal (NORMAL) 05/30/21 09:30 Ur Leukocyte Esterase Negative (NEGATIVE) 05/30/21 09:30 SARS-CoV-2 (PCR) Negative (NEGATIVE) 05/30/21 09:36 Influenza Type A (PCR) Negative (NEGATIVE) 05/30/21 09:36 Influenza Type B (PCR) Negative (NEGATIVE) 05/30/21 09:36 RSV (PCR) Negative (NEGATIVE) 05/30/21 09:36 XRAY XRAY Interpreted by: Radiologist (XRAY AND US REPORTS NOTED AND DISCUSSED WITH PATIENT AND FAMILT.) and Self Opioid <Rolando Buitrago - Last Filed: 05/30/21 07:52> Opioid Risk Tool Age (Jordan box if 16-45): No History of Preadolescent Sexual Abuse: No Total: 0 Total Score Risk Category: Low Risk Copyright: [facility] predicting aberrant behaviors <HUMBERTO DAVIS - Last Filed: 05/30/21 11:09> Opioid Risk Tool Age (Jordan box if 16-45): No Total: 0 Total Score Risk Category: Low Risk <Rolando Buitrago - Last Filed: 05/30/21 07:52> Diagnosis Discharge Problem: Cellulitis of right leg, Swelling DVT of lower extremity (deep venous thrombosis) Qualifiers: Affected thrombotic vein of extremity: popliteal Chronicity: acute Laterality: right Qualified Code(s): I82.431 - Acute embolism and thrombosis of right popliteal vein Hypertension Qualifiers: Hypertension type: primary hypertension Qualified Code(s): I10 - Essential (primary) hypertension Instructions Forms: Precautions for COVID19 [facility] Social Distancing
[2021-05-30 08:08] LABS: BASOPHILS # (AUTO) 0.1 X10^3/uL (0.0-0.1); BASOPHILS % (AUTO) 0.8 % (0.2-1.0); EOSINOPHILS # (AUTO) 0.2 x10^3/uL (0.0-0.2); EOSINOPHILS % (AUTO) 2.8 % (0.9-2.9); HEMATOCRIT 40.4 % (36.0-47.0); HEMOGLOBIN 13.8 g/dL (12.0-16.0); LYMPHOCYTES # (AUTO) 2.3 X10^3/uL (1.3-2.9); LYMPHOCYTES % (AUTO) 25.7 % (21.0-51.0); MEAN CORPUSCULAR HEMOGLOBIN 30.6 pg (27.0-34.0); MEAN CORPUSCULAR HGB CONC 34.2 g/dL (33.0-35.0); MEAN CORPUSCULAR VOLUME 89.6 fL (80.0-100.0); MEAN PLATELET VOLUME 8.4 fL (7.4-11.0); MONOCYTES # (AUTO) 0.6 x10^3/uL (0.3-0.8); NEUTROPHILS # (AUTO) 5.6 x10^3/uL (2.2-4.8); NEUTROPHILS % (AUTO) 63.7 % (42.0-75.0); PLATELET COUNT 253 X10^3/uL (150.0-450.0); RED BLOOD COUNT 4.51 X10^6/uL (3.5-5.4); RED CELL DISTRIBUTION WIDTH 15.2 % (11.6-16.5); WHITE BLOOD COUNT 8.9 X10^3/uL (3.6-10.0)
[2021-05-30 08:25] LABS: ALANINE AMINOTRANSFERASE 19 Units/L (12-78); ALBUMIN 3.6 g/dL (3.4-5.0); ALKALINE PHOSPHATASE 81 Units/L (46-116); ASPARTATE AMINO TRANSFERASE 18 Units/L (15-37); BLOOD UREA NITROGEN 18 mg/dL (7-18); CARBON DIOXIDE 27.5 mmol/L (21-32); CHLORIDE 104 mmol/L (98-107); CREATININE 0.85 mg/dL (0.55-1.02); SODIUM 140 mmol/L (136-145); TOTAL PROTEIN 6.8 g/dL (6.4-8.2); eGFR NON BLACK RACES > 60 (>60)
[2021-05-30 08:27] LABS: LACTIC ACID 0.5 mmol/L (0.4-2.0)
--- NOTE | 2021-05-30 08:49 | VAS ---
HISTORYPOSITIVE FOR DVT 05/04/21, CONTINUED SWELLING AND PAIN RT LEGSTUDYLOWER EXT VENOUS, [id number] ultiple gillespie scale and color flow Doppler images of the deep venous system were obtained of the right and left lower extremity.FINDINGSThe deep venous system of the right lower extremity was evaluated from the level of the common femoral vein through the popliteal vein. Nonocclusive DVT in the right common femoral, superficial femoral, and popliteal veins.IMPRESSIONResolving DVT in the right common femoral, superficial femoral, and popliteal veins.Electronically signed by: HETAL ARRIAGA (May 30, 2021 08:48:19)
--- NOTE | 2021-05-30 08:55 | RAD ---
HISTORYPATIENT C/O RT LOWER EXT SWELLING AND PAIN. PATIENT STATES SHE WAS DIAGNOSED WITH DVT AND HAS BEEN BEING TREATED FOR THAT WITH ELIQUIS, BUT THE SWELLING IS GETTING WORSE AND IS NOW LEAKINGSTUDYCHEST, 1 [id number] cardiomediastinal silhouette is stable. Chronic interstitial markings without evidence of airspace disease or effusion. No pneumothorax. The bony thorax appears intact.IMPRESSIONNo acute cardiopulmonary disease.Electronically signed by: HETAL ARRIAGA (May 30, 2021 08:54:23)
[2021-05-30 09:35] LABS: BILIRUBIN,URINE NEGATIVE (NEGATIVE); BLOOD/HEMOGLOBIN,URINE NEGATIVE (NEGATIVE); GLUCOSE, URINE NEGATIVE (NEGATIVE); KETONES,URINE NEGATIVE (NEGATIVE); LEUKOCYTE ESTERASE ,URINE NEGATIVE (NEGATIVE); NITRITES,URINE NEGATIVE (NEGATIVE); PROTEIN,URINE NEGATIVE (NEGATIVE); UROBILINOGEN,URINE NORMAL (NORMAL)
[2021-05-30 09:37] LABS: APPEARANCE,URINE CLEAR (CLEAR); COLOR,URINE PALE YELLOW (YELLOW)
[2021-05-30] MEDS ORDERED: LASIX IVP ONE ×2 (10:50→11:12)
[2021-05-30] MEDS ORDERED: CATAPRES TAB 0.2 MG ONE (10:53)
[2021-05-30] MEDS ORDERED: CATAPRES TAB 0.2 MG PO ONE (10:57)
[2021-05-30] MEDS ORDERED: XYLOCAINE 2 % (PLAIN) ONE (11:24)
[2021-05-30] MEDS ORDERED: VERSED ONE (11:24)
[2021-05-30] MEDS ORDERED: KETALAR ONE (11:24)
[2021-05-30] MEDS ORDERED: DIPRIVAN VIAL ONE (11:24)
[2021-05-30] MEDS ORDERED: ZOFRAN TAB 4 MG PO PRN (11:31)
[2021-05-30] MEDS ORDERED: XANAX PO PRN (11:31)
[2021-05-30] MEDS ORDERED: MOTRIN TAB 600 MG PO PRN (11:31)
[2021-05-30] MEDS ORDERED: ZANAFLEX PO PRN (11:31)
[2021-05-30] MEDS: MORPHINE SULFATE INJ 2 MG INJ IVP PRN (12:38)
[2021-05-30] MEDS: CLEOCIN VIAL 600 MG 300 MG in D5W 50 ML IV 50 ML IV SCH ×3 (12:40→21:06)
[2021-05-30] MEDS ORDERED: CLEOCIN 300 MG IV PREMIX 300 MG/50 ML BAG IV ONE (20:37)
[2021-05-30] MEDS: MIRAPEX TAB 1 MG PO PRN (21:05)
[2021-05-30] MEDS: ELIQUIS PO SCH (21:05)
[2021-05-30] MEDS: LASIX PO SCH (21:06)
[2021-05-30] MEDS: MICRO K EXTEN CAP 10 MEQ PO SCH (21:06)
[2021-05-30] MEDS: KLONOPIN TAB 1 MG PO PRN (21:06)
[2021-05-30] MEDS ORDERED: NS 100 ML IV 100 ML ONE (21:33)
[2021-05-31] MEDS ORDERED: CLEOCIN 300 MG IV PREMIX 300 MG/50 ML BAG IV ONE (04:57)
[2021-05-31 05:10] LABS: BASOPHILS # (AUTO) 0.1 X10^3/uL (0.0-0.1); EOSINOPHILS # (AUTO) 0.3 x10^3/uL (0.0-0.2); EOSINOPHILS % (AUTO) 3.2 % (0.9-2.9); HEMATOCRIT 35.8 % (36.0-47.0); HEMOGLOBIN 12.3 g/dL (12.0-16.0); LYMPHOCYTES # (AUTO) 1.9 X10^3/uL (1.3-2.9); LYMPHOCYTES % (AUTO) 23.4 % (21.0-51.0); MEAN CORPUSCULAR HEMOGLOBIN 30.4 pg (27.0-34.0); MEAN CORPUSCULAR HGB CONC 34.2 g/dL (33.0-35.0); MEAN CORPUSCULAR VOLUME 88.7 fL (80.0-100.0); MONOCYTES # (AUTO) 0.6 x10^3/uL (0.3-0.8); MONOCYTES % (AUTO) 7.7 % (0.0-13.0); NEUTROPHILS # (AUTO) 5.3 x10^3/uL (2.2-4.8); NEUTROPHILS % (AUTO) 64.7 % (42.0-75.0); PLATELET COUNT 255 X10^3/uL (150.0-450.0); RED BLOOD COUNT 4.04 X10^6/uL (3.5-5.4); RED CELL DISTRIBUTION WIDTH 15.4 % (11.6-16.5); WHITE BLOOD COUNT 8.2 X10^3/uL (3.6-10.0)
[2021-05-31] MEDS: CLEOCIN VIAL 600 MG 300 MG in D5W 50 ML IV 50 ML IV SCH (05:15)
[2021-05-31 05:33] LABS: ALANINE AMINOTRANSFERASE 15 Units/L (12-78); ALKALINE PHOSPHATASE 65 Units/L (46-116); ASPARTATE AMINO TRANSFERASE 14 Units/L (15-37); BLOOD UREA NITROGEN 13 mg/dL (7-18); CALCIUM 8.6 mg/dL (8.5-10.1); CARBON DIOXIDE 25.4 mmol/L (21-32); CHLORIDE 104 mmol/L (98-107); COR CA(FOR HYPOALB) 9.4 mg/dL (8.5-10.1); CREATININE 0.79 mg/dL (0.55-1.02); SODIUM 140 mmol/L (136-145); eGFR NON BLACK RACES > 60 (>60)
[2021-05-31] MEDS: CRESTOR TAB 10 MG PO SCH (08:15)
[2021-05-31] MEDS: PriLOSEC PO SCH (08:16)
[2021-05-31] MEDS: ELIQUIS PO SCH ×2 (08:16→20:44)
[2021-05-31] MEDS: MOBIC TAB 15 MG PO SCH (08:16)
[2021-05-31] MEDS: MICRO K EXTEN CAP 10 MEQ PO SCH ×2 (08:16→20:44)
[2021-05-31] MEDS: LASIX PO SCH ×2 (08:16→20:44)
[2021-05-31] MEDS: TOPROL XL PO SCH (08:17)
[2021-05-31] MEDS: ZOSYN VIAL 3.375 GRAMS 3.375 G in NS 100 ML IV + SPIKE MINIBAG* 100 ML IV SCH ×3 (10:04→22:42)
[2021-05-31 11:07] VITALS: BMI 31.6
[2021-05-31] MEDS: MORPHINE SULFATE INJ 2 MG INJ IVP PRN ×3 (11:33→20:31)
[2021-05-31] MEDS: ZOFRAN INJ 4 MG VIAL IVP PRN (11:33)
--- NOTE | 2021-05-31 13:34 | DR.H&P ---
H&P - History & Physical for Day of: H&P Date: 05/30/21 - Chief Complaint Chief Complaint: RLE SWELLING, REDNESS, PAIN, BLISTERING, DRAINAGE - History of Present Illness History of Present Illness: IS A 80 YEAR OLD PATIENT OF OURS. SHE PRESENTED TO THE ER WITH REPORTS OF PAIN AND SWELLING TO THE RIGHT LOWER EXTREMITY. SHE ALSO REPORTS REDNESS, BLISTERING, AND DRAINAGE FROM BLISTERS. SHE ADMITS TO BEING DIAGNOSED WITH A DVT OF THE RIGHT LOWER EXTREMITY APPROXIMATELY THREE WEEKS AGO. SHE WAS STARTED ON ELIQUIS AT THAT TIME. SHE ADMITS TO RUNNING FEVER ONE DAY PRIOR. SHE DENIES COUGH, SHORTNESS OF BREATH, OR CHILLS. SHE DESCRIBES PAIN THROBBING, INTERMITTENT, AND CURRENTLY RATES PAIN A 6/10. HER PMH INCLUDES: CHF, COPD, CAD, DYSLIPIDEMIA, GERD, HTN, AND HYSTERECTOMY. ON ARRIVAL TO THE ER, VITALS WERE 98.0-86-20-98%-186/79. LABS WERE OBTAINED. SHE WAS HEMODYNAMICALLY STABLE. WBC NORMAL. URINALYSIS WAS OBTAINED AND IS UNREMARKABLE. COVID, INFLUENZA, AND RSV NEGATIVE. BLOOD CULTURES WERE SET UP. A CHEST XRAY WAS OBTAINED AND REVEALED: NO ACUTE CARDIOPULMONARY DISEASE. LOWER EXTREMITY VENOUS DOPPLER WAS OBTAINED AND REVEALED: Resolving DVT in the right common femoral, superficial femoral, and popliteal veins. EKG OBTAINED AND REVEALED: SINUS RHYTHM WITH HR 91. IN THE ER, SHE WAS GIVEN LASIX 40MG IV X 1 DUE TO SWELLING, CATAPRES 0.2MG PO X 1, CLEOCIN 300MG IV X 1. SHE WAS ADMITTED FOR FURTHER EVALUATION AND TREATMENT OF RLE CELLULITIS, RESOLVING DVT, AND HTN. SHE WAS STARTED ON CLEOCIN 300MG IV Q8H, ELIQUIS 5MG PO BID, MOTRIN 600MG PO TID PRN, MORPHINE 2MG IV Q8H PRN, ZOFRAN 4MG IV Q8H PRN, AND HER HOME MEDICATIONS OF XANAX, KLONOPIN, LASIX MOBIC, TOPROL, PRILOSEC, POTASSIUM, MIRAPEX, CRESTOR, AND ZANAFLEX WERE RESUMED. WE WILL PROVIDE WOUND CARE. OTHERWISE, WE PLAN TO FOLLOW UP WITH AM LABS AND CONTINUE TO MONITOR. TIME SPENT ON CLINICAL ASSESSMENT, REVIEWING LABS AND IMAGING, DECISION MAKING, AND DOCUMENTATION GREATER THAN 75 MINUTES. - Past Medical History Past Medical History: Coronary Artery Disease, Hypertension, Dyslipidemia, COPD, GERD, CHF - Past Surgical History Surgical History: Hysterectomy, Joint Replacement - Family History Family Medical History: Cancer, [place], Coronary Artery Disease, Hypertension - Social History Does patient currently use any type of tobacco product: No Have you used tobacco products in the last 12 months: No Type of Tobacco Use: None Does any household member use tobacco: No Alcohol Use: None Drug Use: None - Medications Home Medications: adhesive tape Allergy (Verified 05/30/21 14:02) codeine Allergy (Verified 05/04/21 14:25) CONTINUE taking the following medications omeprazole 40 mg PO DAILY 05/30/21 [History] - Review of Systems Constitutional: Weakness Eyes: No Symptoms Reported ENT: No Symptoms Reported Respiratory: No Symptoms Reported Cardiovascular: Edema (RLE EDEMA ) Gastrointestinal: No Symptoms Reported Genitourinary: No Symptoms Reported Musculoskeletal: Leg Pain (RLE ) Skin: See HPI, Lesions (MULTIPLE LESIONS AND BLISTERING TO RLE WITH CLEAR DRAINAGE ), Wound Neurological: Weakness - Physical Exam Vital Signs: Temperature 97.8 F Pulse Rate [Left Radial] 74 Pulse Rate 84 Respiratory Rate 20 Blood Pressure [Right Arm] 148/67 Blood Pressure [Left Arm] 140/66 Blood Pressure 220/96 O2 Sat by Pulse Oximetry 98 Oriented: Normal Eyes: Normal Ear: Normal Nose: Normal Throat: Normal Respiratory: Diminished Throughout Cardiovascular: Normal : Normal Auscultation: Bowel Sounds: Normal Palpation: Normal Tenderness: Normal Skin: Red, Tender, Hot, Wound (MULTIPLE LESIONS AND BLISTERING TO RLE WITH CLEAR DRAINAGE ) Musculoskeletal: Right, Leg, Swelling, Tender Psychiatric: Normal Mood Description: Calm Affect: Normal Speech Pattern: Clear - Assessment/Plan (1) Cellulitis of right leg Status: Acute Plan: ADMIT, WOUND CARE, CLEOCIN 300MG IV Q8H, ELIQUIS 5MG PO BID, MOTRIN 600MG PO TID PRN, MORPHINE 2MG IV Q8H PRN, ZOFRAN 4MG IV Q8H PRN, AND HER HOME MEDICATIONS OF XANAX, KLONOPIN, LASIX MOBIC, TOPROL, PRILOSEC, POTASSIUM, MIRAPEX, CRESTOR, AND ZANAFLEX WERE RESUMED. (2) DVT of lower extremity (deep venous thrombosis) Qualifiers: Affected thrombotic vein of extremity: popliteal Chronicity: acute Laterality: right Qualified Code(s): I82.431 - Acute embolism and thrombosis of right popliteal vein Status: Acute (3) Hypertension Qualifiers: Hypertension type: primary hypertension Qualified Code(s): I10 - Essential (primary) hypertension Status: Acute - Allergies Allergies/Adverse Reactions: Allergies Allergy/AdvReac Type Severity Reaction Status Date / Time adhesive tape Allergy Verified 05/30/21 14:02 codeine Allergy Verified 05/04/21 14:25
--- NOTE | 2021-05-31 13:48 | PCM.PROG ---
Progress Note - Progress Note for Day of Date of Exam: 05/31/21 - Subjective Subjective: IS BEING TREATED FOR RLE CELLULITIS, RESOLVING DVT, AND HTN. TODAY, SHE IS ALERT AND ORIENTED, SITTING UP IN BED ON MORNING ROUNDS. SHE CONTINUES WITH COMPLAINTS OF ERYTHEMA, EDEMA, AND PAIN TO THE RLE. THERE ARE MULTIPLE BLISTERS/LESIONS NOTED TO THE RLE WITH CLEAR DRAINAGE NOTED. ERYTHEMA EXTENDS FROM JUST ABOVE THE KNEE, DOWN TO THE ANKLE. 2+ EDEMA NOTED. HER VITALS THIS MORNING ARE: 96.7-80-20-98%-139/64. LABS WERE REPEATED THIS MORNING. SHE REMIANS HEMODYNAMICALLY STABLE. SHE IS CURRENTLY RECEIVING CLEOCIN 300MG IV Q8H, ELIQUIS 5MG PO BID, MOTRIN 600MG PO TID PRN, MORPHINE 2MG IV Q8H PRN, ZOFRAN 4MG IV Q8H PRN, AND HER HOME MEDICATIONS OF XANAX, KLONOPIN, LASIX MOBIC, TOPROL, PRILOSEC, POTASSIUM, MIRAPEX, CRESTOR, AND ZANAFLEX WERE RESUMED. TODAY, WE WILL DISCONTINUE THE CLOCIN AND START ZOSYN 3.375G IV TID. OTHERWISE, WE WILL CONTINUE WITH CURRENT PLAN OF CARE. WE PLAN TO FOLLOW UP WITH AM LABS AND CONTINUE TO MONITOR. TIME SPENT ON CLINICAL ASSESSMENT, REVIEWING LABS AND IMAGING, DECISION MAKING, AND DOCUMENTATION GREATER THAN 45 MINUTES. - Past Medical Family Social History Past Med/Fam/Surg Hx: No changes since H&P Allergies: Allergies adhesive tape Allergy (Verified 05/30/21 14:02) codeine Allergy (Verified 05/04/21 14:25) - Review of Systems ROS: No change since H&P - Vital Signs and I&O's Vital Signs: Temperature 97.8 F Pulse Rate [Left Radial] 74 Pulse Rate 84 Respiratory Rate 20 Blood Pressure [Right Arm] 148/67 Blood Pressure [Left Arm] 140/66 Blood Pressure 220/96 O2 Sat by Pulse Oximetry 98 Intake and Output: Intake & Output 05/29/21 05/30/21 05/31/21 06/01/21 11:59 11:59 11:59 11:59 Intake Total 3240 / 3240 Output Total 2450 / 2450 Balance 790 / 790 - Physical Exam Oriented: Normal Eyes: Normal Ear: Normal Nose: Normal Throat: Normal Respiratory: Generalized, Diminished Cardiovascular: Normal : Normal Auscultation: Bowel Sounds: Normal Palpation: Normal Tenderness: Normal Skin: Red, Tender, Hot, Wound (MULTIPLE LESIONS AND BLISTERING TO RLE WITH CLEAR DRAINAGE ) Musculoskeletal: Right, Leg, Swelling, Tender Psychiatric: Normal Mood Description: Calm Affect: Normal Speech Pattern: Clear - Laboratory and Diagnostics Result Diagrams: 05/31/21 04:10 05/31/21 04:10 Labs: Laboratory WBC 8.2 X10^3/uL (3.6-10.0) 05/31/21 04:10 RBC 4.04 X10^6/uL (3.5-5.4) 05/31/21 04:10 Hgb 12.3 g/dL (12.0-16.0) 05/31/21 04:10 Hct 35.8 % (36.0-47.0) L 05/31/21 04:10 MCV 88.7 fL (80.0-100.0) 05/31/21 04:10 MCH 30.4 pg (27.0-34.0) 05/31/21 04:10 MCHC 34.2 g/dL (33.0-35.0) 05/31/21 04:10 RDW 15.4 % (11.6-16.5) 05/31/21 04:10 Plt Count 255 X10^3/uL (150.0-450.0) 05/31/21 04:10 MPV 9.0 fL (7.4-11.0) 05/31/21 04:10 Neut % (Auto) 64.7 % (42.0-75.0) 05/31/21 04:10 Lymph % (Auto) 23.4 % (21.0-51.0) 05/31/21 04:10 [place] % (Auto) 7.7 % (0.0-13.0) 05/31/21 04:10 Eos % (Auto) 3.2 % (0.9-2.9) H 05/31/21 04:10 Baso % (Auto) 1.0 % (0.2-1.0) 05/31/21 04:10 Neut # (Auto) 5.3 x10^3/uL (2.2-4.8) H 05/31/21 04:10 Lymph # (Auto) 1.9 X10^3/uL (1.3-2.9) 05/31/21 04:10 [place] # (Auto) 0.6 x10^3/uL (0.3-0.8) 05/31/21 04:10 Eos # (Auto) 0.3 x10^3/uL (0.0-0.2) H 05/31/21 04:10 Baso # (Auto) 0.1 X10^3/uL (0.0-0.1) 05/31/21 04:10 Absolute Nucleated RBC 0.0 /100WBC 05/31/21 04:10 Sodium 140 mmol/L (136-145) 05/31/21 04:10 Corrected Sodium TNP 05/31/21 04:10 Potassium 3.5 mmol/L (3.5-5.1) 05/31/21 04:10 Chloride 104 mmol/L (98-107) 05/31/21 04:10 Carbon Dioxide 25.4 mmol/L (21-32) 05/31/21 04:10 BUN 13 mg/dL (7-18) 05/31/21 04:10 Creatinine 0.79 mg/dL (0.55-1.02) 05/31/21 04:10 Est GFR (MDRD) Af Amer > 60 (>60) 05/31/21 04:10 Est GFR (MDRD) Non-Af > 60 (>60) 05/31/21 04:10 Glucose 107 mg/dL (65-99) H 05/31/21 04:10 Lactic Acid 0.5 mmol/L (0.4-2.0) 05/30/21 08:01 Calcium 8.6 mg/dL (8.5-10.1) 05/31/21 04:10 Corrected Calcium 9.4 mg/dL (8.5-10.1) 05/31/21 04:10 Magnesium 2.3 mg/dL (1.7-2.9) 05/31/21 04:10 Total Bilirubin 0.30 mg/dL (0.2-1.0) 05/31/21 04:10 AST 14 Units/L (15-37) L 05/31/21 04:10 ALT 15 Units/L (12-78) 05/31/21 04:10 Alkaline Phosphatase 65 Units/L (46-116) 05/31/21 04:10 Total Protein 6.0 g/dL (6.4-8.2) L 05/31/21 04:10 Albumin 3.0 g/dL (3.4-5.0) L 05/31/21 04:10 Globulin 3.0 g/dL (2.5-4.5) 05/31/21 04:10 Albumin/Globulin Ratio 1.0 Ratio (1.1-2.1) L 05/31/21 04:10 Specimen Type Clean catch urine 05/30/21 09:30 Urine Color Pale yellow (YELLOW) 05/30/21 09:30 Urine Appearance Clear (CLEAR) 05/30/21 09:30 Urine pH 6.0 (5.0 - 8.0) 05/30/21 09:30 Ur Specific [place] 1.010 (1.000-1.030) 05/30/21 09:30 Urine Protein Negative (NEGATIVE) 05/30/21 09:30 Urine Glucose (UA) Negative (NEGATIVE) 05/30/21 09:30 Urine Ketones Negative (NEGATIVE) 05/30/21 09:30 Urine Occult Blood Negative (NEGATIVE) 05/30/21 09:30 Urine Nitrite Negative (NEGATIVE) 05/30/21 09:30 Urine Bilirubin Negative (NEGATIVE) 05/30/21 09:30 Urine Urobilinogen Normal (NORMAL) 05/30/21 09:30 Ur Leukocyte Esterase Negative (NEGATIVE) 05/30/21 09:30 SARS-CoV-2 (PCR) Negative (NEGATIVE) 05/30/21 09:36 Influenza Type A (PCR) Negative (NEGATIVE) 05/30/21 09:36 Influenza Type B (PCR) Negative (NEGATIVE) 05/30/21 09:36 RSV (PCR) Negative (NEGATIVE) 05/30/21 09:36 - Plan (1) Cellulitis of right leg Status: Acute Plan: WOUND CARE, ZOSYN 3.375G IV TID, ELIQUIS 5MG PO BID, MOTRIN 600MG PO TID PRN, MORPHINE 2MG IV Q8H PRN, ZOFRAN 4MG IV Q8H PRN, AND HER HOME MEDICATIONS OF XANAX, KLONOPIN, LASIX MOBIC, TOPROL, PRILOSEC, POTASSIUM, MIRAPEX, CRESTOR, AND ZANAFLEX WERE RESUMED. (2) DVT of lower extremity (deep venous thrombosis) Status: Acute Qualifiers: Affected thrombotic vein of extremity: popliteal Chronicity: acute Laterality: right Qualified Code(s): I82.431 - Acute embolism and thrombosis of right popliteal vein (3) Hypertension Status: Acute Qualifiers: Hypertension type: primary hypertension Qualified Code(s): I10 - Essential (primary) hypertension
[2021-05-31] MEDS ORDERED: CLEOCIN 300 MG IV PREMIX 300 MG/50 ML BAG IV SCH (14:00)
[2021-05-31] MEDS: KLONOPIN TAB 1 MG PO PRN (20:44)
[2021-05-31] MEDS: MIRAPEX TAB 1 MG PO PRN (20:44)
[2021-06-01] MEDS: ZOSYN VIAL 3.375 GRAMS 3.375 G in NS 100 ML IV + SPIKE MINIBAG* 100 ML IV SCH ×3 (05:09→21:11)
[2021-06-01 05:34] LABS: BASOPHILS # (AUTO) 0.1 X10^3/uL (0.0-0.1); BASOPHILS % (AUTO) 0.7 % (0.2-1.0); EOSINOPHILS # (AUTO) 0.3 x10^3/uL (0.0-0.2); EOSINOPHILS % (AUTO) 3.9 % (0.9-2.9); HEMATOCRIT 37.9 % (36.0-47.0); HEMOGLOBIN 12.7 g/dL (12.0-16.0); LYMPHOCYTES # (AUTO) 1.7 X10^3/uL (1.3-2.9); LYMPHOCYTES % (AUTO) 20.7 % (21.0-51.0); MEAN CORPUSCULAR HEMOGLOBIN 30.1 pg (27.0-34.0); MEAN CORPUSCULAR HGB CONC 33.6 g/dL (33.0-35.0); MEAN CORPUSCULAR VOLUME 89.5 fL (80.0-100.0); MEAN PLATELET VOLUME 8.9 fL (7.4-11.0); MONOCYTES # (AUTO) 0.5 x10^3/uL (0.3-0.8); MONOCYTES % (AUTO) 6.5 % (0.0-13.0); NEUTROPHILS # (AUTO) 5.7 x10^3/uL (2.2-4.8); NEUTROPHILS % (AUTO) 68.2 % (42.0-75.0); PLATELET COUNT 244 X10^3/uL (150.0-450.0); RED BLOOD COUNT 4.23 X10^6/uL (3.5-5.4); RED CELL DISTRIBUTION WIDTH 15.4 % (11.6-16.5); WHITE BLOOD COUNT 8.4 X10^3/uL (3.6-10.0)
[2021-06-01 05:42] LABS: ALANINE AMINOTRANSFERASE 17 Units/L (12-78); ALKALINE PHOSPHATASE 71 Units/L (46-116); ASPARTATE AMINO TRANSFERASE 14 Units/L (15-37); BLOOD UREA NITROGEN 12 mg/dL (7-18); CALCIUM 8.8 mg/dL (8.5-10.1); CARBON DIOXIDE 28.1 mmol/L (21-32); CHLORIDE 105 mmol/L (98-107); COR CA(FOR HYPOALB) 9.6 mg/dL (8.5-10.1); COR NA(FOR HYPERGLY) 140 mmol/L (136-145); CREATININE 0.94 mg/dL (0.55-1.02); SODIUM 139 mmol/L (136-145); TOTAL PROTEIN 6.3 g/dL (6.4-8.2); eGFR NON BLACK RACES > 60 (>60)
[2021-06-01] MEDS: MORPHINE SULFATE INJ 2 MG INJ IVP PRN (06:13)
[2021-06-01] MEDS: LASIX PO SCH ×2 (08:18→20:38)
[2021-06-01] MEDS: CRESTOR TAB 10 MG PO SCH (08:18)
[2021-06-01] MEDS: ELIQUIS PO SCH ×2 (08:18→20:38)
[2021-06-01] MEDS: TOPROL XL PO SCH (08:19)
[2021-06-01] MEDS: MOBIC TAB 15 MG PO SCH (08:19)
[2021-06-01] MEDS: PriLOSEC PO SCH (08:19)
[2021-06-01] MEDS: MICRO K EXTEN CAP 10 MEQ PO SCH ×2 (08:19→20:38)
--- NOTE | 2021-06-01 16:06 | PCM.PROG ---
Progress Note - Progress Note for Day of Date of Exam: 06/01/21 - Subjective Subjective: IS BEING TREATED FOR RLE CELLULITIS, RESOLVING DVT, AND HTN. TODAY, SHE IS ALERT AND ORIENTED, SITTING UP IN BED ON MORNING ROUNDS. SHE CONTINUES WITH COMPLAINTS OF ERYTHEMA, EDEMA, AND PAIN TO THE RLE. SHE DOES ADMIT TO SLIGHT IMPROVEMENT IN SYMPTOMS TODAY. THERE ARE MULTIPLE HEALING BLISTERS/LESIONS NOTED TO THE RLE. NO DRAINAGE NOTED TODAY. ERYTHEMA EXTENDS FROM JUST ABOVE THE KNEE, DOWN TO THE ANKLE. ONLY TRACE EDEMA NOTED TODAY. HER VITALS THIS MORNING ARE: 97.9-81-20-99%-152/65. LABS WERE REPEATED THIS MORNING. SHE REMIANS HEMODYNAMICALLY STABLE. SHE IS CURRENTLY RECEIVING ZOSYN 3.375 IV TID, ELIQUIS 5MG PO BID, MOTRIN 600MG PO TID PRN, MORPHINE 2MG IV Q8H PRN, ZOFRAN 4MG IV Q8H PRN, AND HER HOME MEDICATIONS OF XANAX, KLONOPIN, LASIX MOBIC, TOPROL, PRILOSEC, POTASSIUM, MIRAPEX, CRESTOR, AND ZANAFLEX WERE RESUMED. PATIENT HAS POOR VENOUS ACCESS. WE WILL CONSULT WITH FOR PLACEMENT OF PORT A CATH. OTHERWISE, WE WILL CONTINUE WITH CURRENT PLAN OF CARE. WE PLAN TO FOLLOW UP WITH AM LABS AND CONTINUE TO MONITOR. TIME SPENT ON CLINICAL ASSESSMENT, REVIEWING LABS AND IMAGING, DECISION MAKING, AND DOCUMENTATION GREATER THAN 45 MINUTES. - Past Medical Family Social History Past Med/Fam/Surg Hx: No changes since H&P Allergies: Allergies adhesive tape Allergy (Verified 05/30/21 14:02) codeine Allergy (Verified 05/04/21 14:25) - Review of Systems ROS: No change since H&P - Vital Signs and I&O's Vital Signs: Temperature 97.8 F Pulse Rate [Left Radial] 72 Pulse Rate 84 Respiratory Rate 20 Blood Pressure [Right Arm] 140/64 Blood Pressure [Left Arm] 145/77 Blood Pressure 220/96 O2 Sat by Pulse Oximetry 95 Intake and Output: Intake & Output 05/30/21 05/31/21 06/01/21 06/02/21 11:59 11:59 11:59 11:59 Intake Total 3240 / 3240 1467 / 1467 198 / 198 Output Total 2450 / 2450 2750 / 2750 Balance 790 / 790 -1283 / -1283 198 / 198 - Physical Exam Oriented: Normal Eyes: Normal Ear: Normal Nose: Normal Throat: Normal Respiratory: Generalized, Diminished Cardiovascular: Normal : Normal Auscultation: Bowel Sounds: Normal Tenderness: Normal Skin: Red, Tender, Hot, Wound (MULTIPLE LESIONS AND BLISTERING TO RLE WITH CLEAR DRAINAGE ) Musculoskeletal: Right, Leg, Swelling, Tender Psychiatric: Normal Mood Description: Calm Affect: Normal Speech Pattern: Clear, Appropriate - Laboratory and Diagnostics Result Diagrams: 06/01/21 04:35 06/01/21 04:35 Labs: 05/30/21 07:50 Blood Blood Culture - Preliminary 05/30/21 07:48 Blood Blood Culture - Preliminary Laboratory WBC 8.4 X10^3/uL (3.6-10.0) 06/01/21 04:35 RBC 4.23 X10^6/uL (3.5-5.4) 06/01/21 04:35 Hgb 12.7 g/dL (12.0-16.0) 06/01/21 04:35 Hct 37.9 % (36.0-47.0) 06/01/21 04:35 MCV 89.5 fL (80.0-100.0) 06/01/21 04:35 MCH 30.1 pg (27.0-34.0) 06/01/21 04:35 MCHC 33.6 g/dL (33.0-35.0) 06/01/21 04:35 RDW 15.4 % (11.6-16.5) 06/01/21 04:35 Plt Count 244 X10^3/uL (150.0-450.0) 06/01/21 04:35 MPV 8.9 fL (7.4-11.0) 06/01/21 04:35 Neut % (Auto) 68.2 % (42.0-75.0) 06/01/21 04:35 Lymph % (Auto) 20.7 % (21.0-51.0) L 06/01/21 04:35 [place] % (Auto) 6.5 % (0.0-13.0) 06/01/21 04:35 Eos % (Auto) 3.9 % (0.9-2.9) H 06/01/21 04:35 Baso % (Auto) 0.7 % (0.2-1.0) 06/01/21 04:35 Neut # (Auto) 5.7 x10^3/uL (2.2-4.8) H 06/01/21 04:35 Lymph # (Auto) 1.7 X10^3/uL (1.3-2.9) 06/01/21 04:35 [place] # (Auto) 0.5 x10^3/uL (0.3-0.8) 06/01/21 04:35 Eos # (Auto) 0.3 x10^3/uL (0.0-0.2) H 06/01/21 04:35 Baso # (Auto) 0.1 X10^3/uL (0.0-0.1) 06/01/21 04:35 Absolute Nucleated RBC 0.1 /100WBC 06/01/21 04:35 Sodium 139 mmol/L (136-145) 06/01/21 04:35 Corrected Sodium 140 mmol/L (136-145) 06/01/21 04:35 Potassium 3.6 mmol/L (3.5-5.1) 06/01/21 04:35 Chloride 105 mmol/L (98-107) 06/01/21 04:35 Carbon Dioxide 28.1 mmol/L (21-32) 06/01/21 04:35 BUN 12 mg/dL (7-18) 06/01/21 04:35 Creatinine 0.94 mg/dL (0.55-1.02) 06/01/21 04:35 Est GFR (MDRD) Af Amer > 60 (>60) 06/01/21 04:35 Est GFR (MDRD) Non-Af > 60 (>60) 06/01/21 04:35 Glucose 122 mg/dL (65-99) H 06/01/21 04:35 Lactic Acid 0.5 mmol/L (0.4-2.0) 05/30/21 08:01 Calcium 8.8 mg/dL (8.5-10.1) 06/01/21 04:35 Corrected Calcium 9.6 mg/dL (8.5-10.1) 06/01/21 04:35 Magnesium 2.3 mg/dL (1.7-2.9) 05/31/21 04:10 Total Bilirubin 0.30 mg/dL (0.2-1.0) 06/01/21 04:35 AST 14 Units/L (15-37) L 06/01/21 04:35 ALT 17 Units/L (12-78) 06/01/21 04:35 Alkaline Phosphatase 71 Units/L (46-116) 06/01/21 04:35 Total Protein 6.3 g/dL (6.4-8.2) L 06/01/21 04:35 Albumin 3.0 g/dL (3.4-5.0) L 06/01/21 04:35 Globulin 3.3 g/dL (2.5-4.5) 06/01/21 04:35 Albumin/Globulin Ratio 0.9 Ratio (1.1-2.1) L 06/01/21 04:35 Specimen Type Clean catch urine 05/30/21 09:30 Urine Color Pale yellow (YELLOW) 05/30/21 09:30 Urine Appearance Clear (CLEAR) 05/30/21 09:30 Urine pH 6.0 (5.0 - 8.0) 05/30/21 09:30 Ur Specific [place] 1.010 (1.000-1.030) 05/30/21 09:30 Urine Protein Negative (NEGATIVE) 05/30/21 09:30 Urine Glucose (UA) Negative (NEGATIVE) 05/30/21 09:30 Urine Ketones Negative (NEGATIVE) 05/30/21 09:30 Urine Occult Blood Negative (NEGATIVE) 05/30/21 09:30 Urine Nitrite Negative (NEGATIVE) 05/30/21 09:30 Urine Bilirubin Negative (NEGATIVE) 05/30/21 09:30 Urine Urobilinogen Normal (NORMAL) 05/30/21 09:30 Ur Leukocyte Esterase Negative (NEGATIVE) 05/30/21 09:30 SARS-CoV-2 (PCR) Negative (NEGATIVE) 05/30/21 09:36 Influenza Type A (PCR) Negative (NEGATIVE) 05/30/21 09:36 Influenza Type B (PCR) Negative (NEGATIVE) 05/30/21 09:36 RSV (PCR) Negative (NEGATIVE) 05/30/21 09:36 - Plan (1) Cellulitis of right leg Status: Acute Plan: WOUND CARE, ZOSYN 3.375G IV TID, ELIQUIS 5MG PO BID, MOTRIN 600MG PO TID PRN, MORPHINE 2MG IV Q8H PRN, ZOFRAN 4MG IV Q8H PRN, AND HER HOME MEDICATIONS OF XANAX, KLONOPIN, LASIX MOBIC, TOPROL, PRILOSEC, POTASSIUM, MIRAPEX, CRESTOR, AND ZANAFLEX WERE RESUMED. (2) DVT of lower extremity (deep venous thrombosis) Status: Acute Qualifiers: Affected thrombotic vein of extremity: popliteal Chronicity: acute Laterality: right Qualified Code(s): I82.431 - Acute embolism and thrombosis of right popliteal vein (3) Hypertension Status: Acute Qualifiers: Hypertension type: primary hypertension Qualified Code(s): I10 - Essential (primary) hypertension
[2021-06-01] MEDS: KLONOPIN TAB 1 MG PO PRN (21:16)
[2021-06-02 04:56] LABS: BASOPHILS # (AUTO) 0.1 X10^3/uL (0.0-0.1); EOSINOPHILS # (AUTO) 0.3 x10^3/uL (0.0-0.2); EOSINOPHILS % (AUTO) 4.6 % (0.9-2.9); HEMOGLOBIN 13.4 g/dL (12.0-16.0); LYMPHOCYTES # (AUTO) 1.6 X10^3/uL (1.3-2.9); LYMPHOCYTES % (AUTO) 20.9 % (21.0-51.0); MEAN CORPUSCULAR HEMOGLOBIN 30.4 pg (27.0-34.0); MEAN CORPUSCULAR HGB CONC 34.3 g/dL (33.0-35.0); MEAN CORPUSCULAR VOLUME 88.6 fL (80.0-100.0); MONOCYTES # (AUTO) 0.5 x10^3/uL (0.3-0.8); MONOCYTES % (AUTO) 6.3 % (0.0-13.0); NEUTROPHILS # (AUTO) 5.1 x10^3/uL (2.2-4.8); NEUTROPHILS % (AUTO) 67.2 % (42.0-75.0); PLATELET COUNT 261 X10^3/uL (150.0-450.0); RED BLOOD COUNT 4.41 X10^6/uL (3.5-5.4); RED CELL DISTRIBUTION WIDTH 15.7 % (11.6-16.5); WHITE BLOOD COUNT 7.6 X10^3/uL (3.6-10.0)
[2021-06-02] MEDS: ZOSYN VIAL 3.375 GRAMS 3.375 G in NS 100 ML IV + SPIKE MINIBAG* 100 ML IV SCH ×3 (05:04→21:36)
[2021-06-02 05:07] LABS: ALANINE AMINOTRANSFERASE 18 Units/L (12-78); ALBUMIN 3.3 g/dL (3.4-5.0); ALKALINE PHOSPHATASE 78 Units/L (46-116); ASPARTATE AMINO TRANSFERASE 15 Units/L (15-37); BLOOD UREA NITROGEN 12 mg/dL (7-18); CALCIUM 9.2 mg/dL (8.5-10.1); CARBON DIOXIDE 28.6 mmol/L (21-32); CHLORIDE 103 mmol/L (98-107); COR CA(FOR HYPOALB) 9.8 mg/dL (8.5-10.1); SODIUM 139 mmol/L (136-145); eGFR NON BLACK RACES > 60 (>60)
[2021-06-02] MEDS: TOPROL XL PO SCH (08:31)
[2021-06-02] MEDS: MOBIC TAB 15 MG PO SCH ×2 (08:31→08:46)
[2021-06-02] MEDS: PriLOSEC PO SCH (08:32)
[2021-06-02] MEDS: ELIQUIS PO SCH ×3 (08:32→20:50)
[2021-06-02] MEDS: LASIX PO SCH ×2 (08:32→20:50)
[2021-06-02] MEDS: CRESTOR TAB 10 MG PO SCH ×2 (08:32→08:46)
[2021-06-02] MEDS: MICRO K EXTEN CAP 10 MEQ PO SCH ×2 (08:32→20:50)
[2021-06-02] MEDS ORDERED: XYLOCAINE 1 % (PLAIN) ONE ×2 (10:38)
[2021-06-02] MEDS ORDERED: NS 1,000 ML IV 1,000 ML ONE (11:06)
[2021-06-02] MEDS ORDERED: FENTANYL VIAL INJ 100 mcg ONE (11:17)
[2021-06-02] MEDS ORDERED: ANCEF 1 GRAM IV PREMIX* 1 G/50 ML BAG IV ONE (11:56)
--- NOTE | 2021-06-02 13:15 | RAD ---
HISTORYPORT A CATH PLACEMENTSTUDYCHEST, 1 [id number] subclavian central venous catheter is in the expected location of the superior vena cava.Lungs are well inflated with no pneumonia or pleural effusion. No pneumothorax after line placement.Heart size is normal.Bones are unremarkable.IMPRESSION1. No significant abnormalityElectronically signed by: Hany Sanches (Jun 02, 2021 13:13:21)
[2021-06-02] MEDS: BENADRYL INJ 50 MG VIAL IVP PRN ×2 (13:46→20:51)
[2021-06-02] MEDS: MORPHINE SULFATE INJ 2 MG INJ IVP PRN ×2 (13:46→20:51)
--- NOTE | 2021-06-02 15:37 | PCM.PROG ---
Progress Note - Progress Note for Day of Date of Exam: 06/02/21 - Subjective Subjective: IS BEING TREATED FOR RLE CELLULITIS, RESOLVING DVT, AND HTN. TODAY, SHE IS ALERT AND ORIENTED, SITTING UP IN BED ON MORNING ROUNDS. SHE CONTINUES WITH COMPLAINTS OF ERYTHEMA, EDEMA, AND PAIN TO THE RLE. SHE DOES ADMIT TO IMPROVEMENT IN SYMPTOMS TODAY. THERE ARE MULTIPLE HEALING BLIS TERS/LESIONS NOTED TO THE RLE. NO DRAINAGE NOTED. ERYTHEMA EXTENDS FROM JUST ABOVE THE KNEE, DOWN TO THE ANKLE. IT HAS IMPROVED SINCE ADMISSION. ONLY TRACE EDEMA NOTED TODAY. HER VITALS THIS MORNING ARE: 97.8-79-18-96%-149/87. LABS WERE REPEATED THIS MORNING. SHE REMIANS HEMODYNAMICALLY STABLE. SHE IS CURRENTLY RECEIVING ZOSYN 3.375 IV TID, ELIQUIS 5MG PO BID, MOTRIN 600MG PO TID PRN, MORPHINE 2MG IV Q8H PRN, ZOFRAN 4MG IV Q8H PRN, AND HER HOME MEDICATIONS OF XANAX, KLONOPIN, LASIX MOBIC, TOPROL, PRILOSEC, POTASSIUM, MIRAPEX, CRESTOR, AND ZANAFLEX WERE RESUMED. PATIENT HAS POOR VENOUS ACCESS. PLANS FOR PLACEMENT OF PORT A CATH TODAY. OTHERWISE, WE WILL CONTINUE WITH CURRENT PLAN OF CARE. WE PLAN TO FOLLOW UP WITH AM LABS AND CONTINUE TO MONITOR. TIME SPENT ON CLINICAL ASSESSMENT, REVIEWING LABS AND IMAGING, DECISION MAKING, AND DOCUMENTATION GREATER THAN 45 MINUTES. - Past Medical Family Social History Past Med/Fam/Surg Hx: No changes since H&P Allergies: Allergies adhesive tape Allergy (Verified 05/30/21 14:02) codeine Allergy (Verified 05/04/21 14:25) - Review of Systems ROS: No change since H&P - Vital Signs and I&O's Vital Signs: Temperature 97.7 F Pulse Rate [Left Radial] 80 Pulse Rate 81 Respiratory Rate 20 Blood Pressure [Right Arm] 179/70 Blood Pressure [Left Arm] 139/63 Blood Pressure 178/76 O2 Sat by Pulse Oximetry 96 Intake and Output: Intake & Output 05/31/21 06/01/21 06/02/21 06/03/21 11:59 11:59 11:59 11:59 Intake Total 3240 / 3240 1467 / 1467 2532 / 2532 900 / 900 Output Total 2450 / 2450 2750 / 2750 3650 / 3650 1210 / 1210 Balance 790 / 790 -1283 / -1283 -1118 / -1118 -310 / -310 - Physical Exam Oriented: Normal Eyes: Normal Ear: Normal Nose: Normal Throat: Normal Respiratory: Generalized, Diminished Cardiovascular: Normal : Normal Auscultation: Bowel Sounds: Normal Tenderness: Normal Skin: Red, Tender, Hot, Wound (MULTIPLE LESIONS AND BLISTERING TO RLE WITH CLEAR DRAINAGE ) Musculoskeletal: Right, Leg, Swelling, Tender Psychiatric: Normal Mood Description: Calm Affect: Normal Speech Pattern: Clear, Appropriate - Laboratory and Diagnostics Result Diagrams: 06/02/21 04:00 06/02/21 04:00 Labs: 05/30/21 07:50 Blood Blood Culture - Preliminary 05/30/21 07:48 Blood Blood Culture - Preliminary Laboratory WBC 7.6 X10^3/uL (3.6-10.0) 06/02/21 04:00 RBC 4.41 X10^6/uL (3.5-5.4) 06/02/21 04:00 Hgb 13.4 g/dL (12.0-16.0) 06/02/21 04:00 Hct 39.0 % (36.0-47.0) 06/02/21 04:00 MCV 88.6 fL (80.0-100.0) 06/02/21 04:00 MCH 30.4 pg (27.0-34.0) 06/02/21 04:00 MCHC 34.3 g/dL (33.0-35.0) 06/02/21 04:00 RDW 15.7 % (11.6-16.5) 06/02/21 04:00 Plt Count 261 X10^3/uL (150.0-450.0) 06/02/21 04:00 MPV 9.0 fL (7.4-11.0) 06/02/21 04:00 Neut % (Auto) 67.2 % (42.0-75.0) 06/02/21 04:00 Lymph % (Auto) 20.9 % (21.0-51.0) L 06/02/21 04:00 [place] % (Auto) 6.3 % (0.0-13.0) 06/02/21 04:00 Eos % (Auto) 4.6 % (0.9-2.9) H 06/02/21 04:00 Baso % (Auto) 1.0 % (0.2-1.0) 06/02/21 04:00 Neut # (Auto) 5.1 x10^3/uL (2.2-4.8) H 06/02/21 04:00 Lymph # (Auto) 1.6 X10^3/uL (1.3-2.9) 06/02/21 04:00 [place] # (Auto) 0.5 x10^3/uL (0.3-0.8) 06/02/21 04:00 Eos # (Auto) 0.3 x10^3/uL (0.0-0.2) H 06/02/21 04:00 Baso # (Auto) 0.1 X10^3/uL (0.0-0.1) 06/02/21 04:00 Absolute Nucleated RBC 0.0 /100WBC 06/02/21 04:00 Sodium 139 mmol/L (136-145) 06/02/21 04:00 Corrected Sodium TNP 06/02/21 04:00 Potassium 3.7 mmol/L (3.5-5.1) 06/02/21 04:00 Chloride 103 mmol/L (98-107) 06/02/21 04:00 Carbon Dioxide 28.6 mmol/L (21-32) 06/02/21 04:00 BUN 12 mg/dL (7-18) 06/02/21 04:00 Creatinine 0.90 mg/dL (0.55-1.02) 06/02/21 04:00 Est GFR (MDRD) Af Amer > 60 (>60) 06/02/21 04:00 Est GFR (MDRD) Non-Af > 60 (>60) 06/02/21 04:00 Glucose 93 mg/dL (65-99) 06/02/21 04:00 Lactic Acid 0.5 mmol/L (0.4-2.0) 05/30/21 08:01 Calcium 9.2 mg/dL (8.5-10.1) 06/02/21 04:00 Corrected Calcium 9.8 mg/dL (8.5-10.1) 06/02/21 04:00 Magnesium 2.3 mg/dL (1.7-2.9) 05/31/21 04:10 Total Bilirubin 0.40 mg/dL (0.2-1.0) 06/02/21 04:00 AST 15 Units/L (15-37) 06/02/21 04:00 ALT 18 Units/L (12-78) 06/02/21 04:00 Alkaline Phosphatase 78 Units/L (46-116) 06/02/21 04:00 Total Protein 7.0 g/dL (6.4-8.2) 06/02/21 04:00 Albumin 3.3 g/dL (3.4-5.0) L 06/02/21 04:00 Globulin 3.7 g/dL (2.5-4.5) 06/02/21 04:00 Albumin/Globulin Ratio 0.9 Ratio (1.1-2.1) L 06/02/21 04:00 Specimen Type Clean catch urine 05/30/21 09:30 Urine Color Pale yellow (YELLOW) 05/30/21 09:30 Urine Appearance Clear (CLEAR) 05/30/21 09:30 Urine pH 6.0 (5.0 - 8.0) 05/30/21 09:30 Ur Specific [place] 1.010 (1.000-1.030) 05/30/21 09:30 Urine Protein Negative (NEGATIVE) 05/30/21 09:30 Urine Glucose (UA) Negative (NEGATIVE) 05/30/21 09:30 Urine Ketones Negative (NEGATIVE) 05/30/21 09:30 Urine Occult Blood Negative (NEGATIVE) 05/30/21 09:30 Urine Nitrite Negative (NEGATIVE) 05/30/21 09:30 Urine Bilirubin Negative (NEGATIVE) 05/30/21 09:30 Urine Urobilinogen Normal (NORMAL) 05/30/21 09:30 Ur Leukocyte Esterase Negative (NEGATIVE) 05/30/21 09:30 SARS-CoV-2 (PCR) Negative (NEGATIVE) 05/30/21 09:36 Influenza Type A (PCR) Negative (NEGATIVE) 05/30/21 09:36 Influenza Type B (PCR) Negative (NEGATIVE) 05/30/21 09:36 RSV (PCR) Negative (NEGATIVE) 05/30/21 09:36 - Plan (1) Cellulitis of right leg Status: Acute Plan: WOUND CARE, ZOSYN 3.375G IV TID, ELIQUIS 5MG PO BID, MOTRIN 600MG PO TID PRN, MORPHINE 2MG IV Q8H PRN, ZOFRAN 4MG IV Q8H PRN, AND HER HOME MEDICATIONS OF XANAX, KLONOPIN, LASIX MOBIC, TOPROL, PRILOSEC, POTASSIUM, MIRAPEX, CRESTOR, AND ZANAFLEX WERE RESUMED. (2) DVT of lower extremity (deep venous thrombosis) Status: Acute Qualifiers: Affected thrombotic vein of extremity: popliteal Chronicity: acute Laterality: right Qualified Code(s): I82.431 - Acute embolism and thrombosis of right popliteal vein (3) Hypertension Status: Acute Qualifiers: Hypertension type: primary hypertension Qualified Code(s): I10 - Essential (primary) hypertension
[2021-06-02] MEDS: ANCEF VIAL 1 GRAM ONE (19:10)
[2021-06-02] MEDS ORDERED: NS 250 ML IV 250 ML IV ONE (20:26)
[2021-06-03 05:04] LABS: BASOPHILS # (AUTO) 0.1 X10^3/uL (0.0-0.1); BASOPHILS % (AUTO) 0.8 % (0.2-1.0); EOSINOPHILS # (AUTO) 0.4 x10^3/uL (0.0-0.2); EOSINOPHILS % (AUTO) 4.5 % (0.9-2.9); HEMATOCRIT 37.8 % (36.0-47.0); HEMOGLOBIN 13.2 g/dL (12.0-16.0); LYMPHOCYTES # (AUTO) 2.2 X10^3/uL (1.3-2.9); LYMPHOCYTES % (AUTO) 25.5 % (21.0-51.0); MEAN CORPUSCULAR HEMOGLOBIN 30.6 pg (27.0-34.0); MEAN CORPUSCULAR HGB CONC 34.8 g/dL (33.0-35.0); MEAN CORPUSCULAR VOLUME 88.1 fL (80.0-100.0); MEAN PLATELET VOLUME 8.7 fL (7.4-11.0); MONOCYTES # (AUTO) 0.8 x10^3/uL (0.3-0.8); MONOCYTES % (AUTO) 8.7 % (0.0-13.0); NEUTROPHILS # (AUTO) 5.3 x10^3/uL (2.2-4.8); NEUTROPHILS % (AUTO) 60.5 % (42.0-75.0); PLATELET COUNT 255 X10^3/uL (150.0-450.0); RED BLOOD COUNT 4.29 X10^6/uL (3.5-5.4); RED CELL DISTRIBUTION WIDTH 15.5 % (11.6-16.5); WHITE BLOOD COUNT 8.7 X10^3/uL (3.6-10.0)
[2021-06-03 05:25] LABS: ALANINE AMINOTRANSFERASE 17 Units/L (12-78); ALBUMIN 3.2 g/dL (3.4-5.0); ALKALINE PHOSPHATASE 78 Units/L (46-116); ASPARTATE AMINO TRANSFERASE 16 Units/L (15-37); BLOOD UREA NITROGEN 13 mg/dL (7-18); CALCIUM 8.8 mg/dL (8.5-10.1); CARBON DIOXIDE 27.8 mmol/L (21-32); CHLORIDE 102 mmol/L (98-107); COR CA(FOR HYPOALB) 9.4 mg/dL (8.5-10.1); CREATININE 0.84 mg/dL (0.55-1.02); SODIUM 136 mmol/L (136-145); TOTAL PROTEIN 6.8 g/dL (6.4-8.2); eGFR NON BLACK RACES > 60 (>60)
[2021-06-03] MEDS: ZOSYN VIAL 3.375 GRAMS 3.375 G in NS 100 ML IV + SPIKE MINIBAG* 100 ML IV SCH (06:00)
[2021-06-03 08:24] VITALS: BP 182/77
[2021-06-03] MEDS: ELIQUIS PO SCH ×2 (08:25→09:19)
[2021-06-03] MEDS: CRESTOR TAB 10 MG PO SCH ×2 (08:25→09:19)
[2021-06-03] MEDS: LASIX PO SCH ×2 (08:25→09:20)
[2021-06-03] MEDS: MOBIC TAB 15 MG PO SCH (09:18)
[2021-06-03] MEDS: PriLOSEC PO SCH (09:18)
[2021-06-03] MEDS: MICRO K EXTEN CAP 10 MEQ PO SCH (09:18)
[2021-06-03] MEDS: TOPROL XL PO SCH (09:19)
[2021-06-03] MEDS: ZOFRAN INJ 4 MG VIAL IVP PRN (10:25)
[2021-06-03] MEDS ORDERED: INVANZ INJ 1 GM VIAL 1 GM in NS 100 ML IV + SPIKE MINIBAG* 100 ML IV ONE (10:34)
== END 2021-06-03 12:00 | disposition home health service (06) ==
LOC: MED/SURG 06:54 → ER 06:54 → MED/SURG 11:28
PROVIDERS: ADMIT Internal Medicine; ATTEND Internal Medicine
DX: I87.2 Venous insufficiency (chronic) (peripheral); I10 Essential (primary) hypertension; I82.431 Acute embolism and thrombosis of right popliteal vein; L03.115 Cellulitis of right lower limb; R94.31 Abnormal electrocardiogram [ECG] [EKG]; J44.9 Chronic obstructive pulmonary disease, unspecified; M79.604 Pain in right leg; Z20.822 Contact with and (suspected) exposure to COVID-19; Z79.01 Long term (current) use of anticoagulants; I25.10 Atherosclerotic heart disease of native coronary artery without angina pectoris; E78.2 Mixed hyperlipidemia

== ENCOUNTER 2021-06-09 12:27 | Inpatient (IN) ==
[2021-06-09] MEDS ORDERED: HEPARIN SODIUM IN D5W 75,000 UNITS/1,500 ML BAG ONE (14:20)
[2021-06-09] MEDS ORDERED: HEPARIN SODIUM INJ 5000 UNITS ONE (14:20)
[2021-06-09] MEDS ORDERED: MARCAINE 0.5% ONE (14:20)
[2021-06-09] MEDS ORDERED: BRIDION ONE (15:13)
[2021-06-09] MEDS ORDERED: OFIRMEV IV 1000 MG VIAL 1,000 MG/100 ML VIAL IV ONE (15:13)
[2021-06-09] MEDS ORDERED: FENTANYL VIAL INJ 100 mcg ONE (15:13)
[2021-06-09] MEDS ORDERED: PEPCID 20 MG IV PREMIX* 50 ML IV ONE (15:13)
[2021-06-09] MEDS ORDERED: ZEMURON 50 MG VIAL ONE (15:13)
[2021-06-09] MEDS ORDERED: ANCEF 1 GRAM IV PREMIX* 2 G/100 ML BAG IV ONE (15:15)
[2021-06-09] MEDS ORDERED: LR 1,000 ML IV 1,000 ML IV ONE (15:15)
[2021-06-09] MEDS ORDERED: BETADINE SOLN ONE (15:19)
[2021-06-09] MEDS ORDERED: REFLEX: PROVENTIL NEB & PulmiCORT NEB~ ONE (15:37)
[2021-06-09] MEDS ORDERED: ZOFRAN INJ 4 MG VIAL ONE (15:37)
[2021-06-09] MEDS ORDERED: XYLOCAINE 2 % (PLAIN) ONE (15:37)
[2021-06-09] MEDS ORDERED: VERSED ONE (15:37)
[2021-06-09] MEDS ORDERED: EPHEDRINE SULFATE INJ ONE (15:37)
[2021-06-09] MEDS ORDERED: KETALAR ONE (15:37)
[2021-06-09] MEDS ORDERED: AMIDATE INJ 40 MG VIAL ONE (15:37)
[2021-06-09] MEDS ORDERED: REGLAN INJ 10 MG VIAL ONE (15:37)
[2021-06-09] MEDS ORDERED: DIPRIVAN VIAL ONE (15:37)
--- NOTE | 2021-06-09 15:41 | DR.H&P ---
H&P History & Physical for Day of: H&P Date: 06/09/21 Chief Complaint Chief Complaint: Swelling of right leg. Ulcers right leg. Recent cellulitis Allergies Allergies Allergy/AdvReac Type Severity Reaction Status Date / Time adhesive tape Allergy Verified 05/30/21 14:02 codeine Allergy Verified 05/04/21 14:25 History of Present Illness History of Present Illness: This 80 year old female presented several weeks ago with right lower extremity pain and swelling. She was diagnosed with a DVT at that time. She was started on Eliquis. Presented one could go with marked increasing swelling of the right lower extremity with questionable diagnosis of cellulitis and ulcerations over the anterior tibial compartment. She was treated with IV antibiotics. She remained on Eliquis and was discharged home on. He was seen in my office today and still has ulcerations over the right anterior tibial compartment. He has some violaceous swelling but no obvious c ellulitis . she is placed on observation to consider thrombolysis and possible other interventions of the clot of the right leg. Past Medical History Past Medical History: Anxiety, COPD, Coronary Artery Disease, Dyslipidemia, GERD and Hypertension Additional Medical History: History of coronary artery stenting in the past , currently without symptoms of chest pain or significant shortness of breath Past Surgical History Surgical History: Hysterectomy and Joint Replacement Family History Family Medical History: Cancer, [place], Coronary Artery Disease and Hypertension Social History Does patient currently use any type of tobacco product: No Have you used tobacco products in the last 12 months: No Alcohol Use: None Prescription drug monitoring program results: PDMP was not reviewed Medications Home Medications: amoxicillin 800 mg BID gabapentin 300 mg BID clonazepam 1 mg at bedtime hydrocodone 7. 5 mg one po TID PRN pain Alprazolam 1mg BID Omeprazole 40 mg DAILY potassium chloride 10 mEq BID metoprolol 12. 5 mg q day Tizanidine 4 mg BID Rosuvastatin 1 it's ma'am mg BID Pramipexole 1 mg BID Lasix 20 mg BID Meloxicam 15 mg daily Eliquis 15 mg twice a day adhesive tape Allergy (Verified 05/30/21 14:02) codeine Allergy (Verified 05/04/21 14:25) Labs Labs: see recent admission labs Review of Systems Constitutional: Other (complaining of significant swelling right lower extremity with ulcerations over the right anterior tibial compartment ) Eyes: No Symptoms Reported ENT: No Symptoms Reported Respiratory: No Symptoms Reported Cardiovascular: No Symptoms Reported Gastrointestinal: No Symptoms Reported Genitourinary: No Symptoms Reported Musculoskeletal: No Symptoms Reported Skin: No Symptoms Reported (See HPI above ) Neurological: No Symptoms Reported Physical Exam Vital Signs: Blood Pressure [Right Arm] 179/70 Blood Pressure [Left Arm] 182/77 Oriented: Normal, Time, Person and Place Eyes: Normal Ear: Normal Nose: Normal Throat: Normal Respiratory: Clear Throughout Cardiovascular: Normal : Normal Auscultation: Bowel Sounds: Normal Palpation: Normal Tenderness: Normal Skin: Normal (see HPI above ) Musculoskeletal: Normal Psychiatric: Normal Mood Description: Calm Speech Pattern: Clear Assessment/Plan (1) Acute deep vein thrombosis (DVT) of right lower extremity: Qualifiers: Affected thrombotic vein of extremity: femoral Qualified Code(s): I82.411 - Acute embolism and thrombosis of right femoral vein Status: Acute Plan: plan placement of thrombolytic catheter and plan thrombolysis overnight and return to the operating room tomorrow for definitive treatment (2) Hypertension: Qualifiers: Hypertension type: primary hypertension Qualified Code(s): I10 - Essential (primary) hypertension Status: Acute (3) Hypertension: Qualifiers: Hypertension type: primary hypertension Qualified Code(s): I10 - Essential (primary) hypertension Status: Acute (4) CAD (coronary artery disease): Qualifiers: Coronary Disease-Associated Artery/Lesion type: unspecified vessel or lesion type [place] vs. transplanted heart: [place] heart Associated angina: without angina Qualified Code(s): I25.10 - Atherosclerotic heart disease of [place] coronary artery without angina pectoris Status: Chronic Review H&P Reviewed: Yes Patient was examined?: Yes
[2021-06-09] MEDS: NS 1,000 ML IV 1,000 ML ONE ×2 (15:46→16:32)
[2021-06-09] MEDS ORDERED: HEPARIN SODIUM IN D5W 50,000 UNITS/1,000 ML BAG ONE (15:46)
[2021-06-09] MEDS ORDERED: NS 500 ML IV 0 ML IV ONE (15:47)
[2021-06-09] MEDS ORDERED: DECADRON INJ ONE (16:18)
[2021-06-09] MEDS ORDERED: ACTIVASE CATHFLO ONE (16:30)
[2021-06-09] MEDS ORDERED: PROTAMINE SULFATE 50 MG VIAL ONE (16:37)
[2021-06-09] MEDS ORDERED: HEPARIN SODIUM IN D5W 25,000 UNITS/500 ML BAG IV ONE (16:45)
[2021-06-09] MEDS: ACTIVASE CATHFLO 12 MG in NS 250 ML IV 228 ML INTRACATH SCH (16:45)
[2021-06-09] MEDS ORDERED: XANAX PO PRN (17:26)
[2021-06-09] MEDS ORDERED: ZANAFLEX PO PRN (17:31)
[2021-06-09] MEDS ORDERED: HEPARIN SODIUM IN D5W 25,000 UNITS/500 ML BAG INTRACATH PRN (17:34)
[2021-06-09] MEDS ORDERED: ACTIVASE CATHFLO 12 MG in NS 250 ML IV 228 ML INTRACATH ONE ×6 (17:34)
--- NOTE | 2021-06-09 17:44 | OR.IMMED ---
IMMEDIATE POST-OP NOTE Immediate Post-Op Note Pre-Op Diagnosis: nonocclusive thrombus right femoral vein to right popliteal ve in Post-Op Diagnosis: no obvious thrombus in the above stated area, however complete thrombosis of entire right iliac vein Procedure: Venogram right lower extremity, Vena cava gram,placement EKOS catheter right iliac vein,plan overnight thrombolysis right iliac vein Description of Procedure: see operative summary Surgeon/Processes Chemical Design Engineer: Carlos Findings: as above Specimens Removed: none Estimated Blood Loss: minimal Drains: NONE Complications: none Discharge Progress Notes: To ICU Final Diagnosis: thrombosis right iliac vein
[2021-06-09] MEDS ORDERED: NS 500 ML IV 500 ML IV SCH ×2 (18:00)
[2021-06-09 18:09] LABS: BASOPHILS # (AUTO) 0.1 X10^3/uL (0.0-0.1); BASOPHILS % (AUTO) 0.5 % (0.2-1.0); EOSINOPHILS # (AUTO) 0.2 x10^3/uL (0.0-0.2); EOSINOPHILS % (AUTO) 1.8 % (0.9-2.9); HEMATOCRIT 42.2 % (36.0-47.0); HEMOGLOBIN 14.3 g/dL (12.0-16.0); LYMPHOCYTES # (AUTO) 2.2 X10^3/uL (1.3-2.9); LYMPHOCYTES % (AUTO) 17.6 % (21.0-51.0); MEAN CORPUSCULAR HEMOGLOBIN 29.7 pg (27.0-34.0); MEAN CORPUSCULAR HGB CONC 33.8 g/dL (33.0-35.0); MEAN CORPUSCULAR VOLUME 88.1 fL (80.0-100.0); MEAN PLATELET VOLUME 8.9 fL (7.4-11.0); MONOCYTES # (AUTO) 0.5 x10^3/uL (0.3-0.8); MONOCYTES % (AUTO) 3.7 % (0.0-13.0); NEUTROPHILS # (AUTO) 9.8 x10^3/uL (2.2-4.8); NEUTROPHILS % (AUTO) 76.4 % (42.0-75.0); PLATELET COUNT 234 X10^3/uL (150.0-450.0); RED BLOOD COUNT 4.79 X10^6/uL (3.5-5.4); WHITE BLOOD COUNT 12.8 X10^3/uL (3.6-10.0)
[2021-06-09] MEDS: LR 1,000 ML IV 1,000 ML IV SCH (19:00)
--- NOTE | 2021-06-09 20:44 | DR.OPNOTE ---
OP NOTE Pre-Op Diagnosis: Nonocclusive thrombus of right femoral vein, right popliteal vein Post-Op Diagnosis: normal femoral vein, thrombosis right common and external iliac vein Procedure Date Date Of Procedure: 06/09/21 Procedure: Patient was taken to the operative suite, placed in the supine position and general endotracheal anesthesia induced. The patient then placed in the prone position and the right popliteal fossa prepped and draped in zachery rile fashion. Time out for the procedure obtained . Ultrasound used to identify the right popliteal vein and the skin overlying it infiltrated with 0. 5% Marcaine . Ultrasound used to guide puncture of the popliteal vein with a 16-gauge needle and a 0. 012 inch guidewire . Incision over the guide wire at the skin edge and the micro sheath placed over the wire into the popliteal vein. The patient had backflow of venous blood. Venogram carried out showing no obvious occlusion of right popliteal or femoral vein. There appeared to be clot in the common femoral vein. Sequential venogram carried out showing no flow through the entire right common iliac and external iliac vein. Small wire exchanged for a 0. 035 inch Advantage Glidewire. Microsheath exchanged for a 5 Fr vascular sheath. Trailblazer catheter placed over the wire and the combination of the wire and the Trailblazer catheter were used to traverse the occluded iliac vein into the vena cava. Dye through the Trailblazer catheter confirmed the normal inferior vena cava with complete occlusion at the take off of the right common iliac vein. EKOS catheter placed over the guide wire across the area of occlusion of the right iliac vein . Guidewire removed and the inner core of the EKOS catheter placed and secured. The patient was bolused with 4 mg of IV TPA through the EKOS catheter . Infusion of TPA began at 1 mg/hour. . Coolant started at 30 cc hr. Heparin started through the 5 Fr vascular sheath at 200 units / hour. Taken to ICU for infusion with TPA overnight. Will return to OR in AM for repeat venogram and intervention . Patient noted to have stent in the left common iliac vein. Type of Anesthesia: Local (6 cc 0.5% Marcaine) and General Anesthetic w/ETT Findings: Preoperative diagnosis was thrombosis of the right femoral vein, superficial femoral vein right popliteal vein. Venography showed all these to be patent and open with complete thrombosis of the right common and external iliac veins. The vena cava appeared to be open . Specimen/Pathology: none Type of Fluids Used:: Lactated Ringers Total Amount of Fluid Infused:: 700 cc Urine output: 200 cc EBL: 10 cc Complications:: none Needle/Sponge Count:: correct Disposition/Condition: Pt. tolerated procedure without difficulty. Extubated in the OR and taken to PACU in stable condition. Patient taken to the ICU where she will have thrombolysis overnight with TPA. Will plan return to the operating room tomorrow morning for repeat venogram and appropriate intervention .
[2021-06-09] MEDS: MICRO K EXTEN CAP 10 MEQ PO SCH (21:30)
[2021-06-09] MEDS: CRESTOR TAB 10 MG PO SCH (21:30)
[2021-06-09] MEDS: NEURONTIN CAP 300 MG PO SCH (21:30)
[2021-06-09] MEDS: KLONOPIN TAB 1 MG PO SCH (21:30)
[2021-06-09] MEDS: REQUIP PO SCH (21:30)
[2021-06-09] MEDS: PERCOCET TAB 5/325 MG PO PRN (22:30)
[2021-06-09 23:54] LABS: BASOPHILS % (AUTO) 0.3 % (0.2-1.0); HEMATOCRIT 39.6 % (36.0-47.0); HEMOGLOBIN 13.6 g/dL (12.0-16.0); LYMPHOCYTES # (AUTO) 0.5 X10^3/uL (1.3-2.9); LYMPHOCYTES % (AUTO) 5.9 % (21.0-51.0); MEAN CORPUSCULAR HEMOGLOBIN 30.7 pg (27.0-34.0); MEAN CORPUSCULAR HGB CONC 34.4 g/dL (33.0-35.0); MEAN CORPUSCULAR VOLUME 89.2 fL (80.0-100.0); MEAN PLATELET VOLUME 9.4 fL (7.4-11.0); MONOCYTES # (AUTO) 0.1 x10^3/uL (0.3-0.8); NEUTROPHILS # (AUTO) 7.6 x10^3/uL (2.2-4.8); NEUTROPHILS % (AUTO) 92.8 % (42.0-75.0); PLATELET COUNT 233 X10^3/uL (150.0-450.0); RED BLOOD COUNT 4.44 X10^6/uL (3.5-5.4); WHITE BLOOD COUNT 8.2 X10^3/uL (3.6-10.0)
[2021-06-10 00:30] LABS: PLATELET MORPHOLOGY COMMENT NORMAL (NORMAL)
[2021-06-10] MEDS: ACTIVASE CATHFLO 12 MG in NS 250 ML IV 228 ML INTRACATH SCH (04:45)
[2021-06-10 04:48] VITALS: BMI 31.2
[2021-06-10 05:44] LABS: BASOPHILS % (AUTO) 0.3 % (0.2-1.0); HEMATOCRIT 39.1 % (36.0-47.0); HEMOGLOBIN 13.4 g/dL (12.0-16.0); LYMPHOCYTES # (AUTO) 0.7 X10^3/uL (1.3-2.9); LYMPHOCYTES % (AUTO) 6.3 % (21.0-51.0); MEAN CORPUSCULAR HEMOGLOBIN 30.3 pg (27.0-34.0); MEAN CORPUSCULAR HGB CONC 34.1 g/dL (33.0-35.0); MEAN CORPUSCULAR VOLUME 88.7 fL (80.0-100.0); MEAN PLATELET VOLUME 9.3 fL (7.4-11.0); MONOCYTES # (AUTO) 0.2 x10^3/uL (0.3-0.8); MONOCYTES % (AUTO) 2.3 % (0.0-13.0); NEUTROPHILS # (AUTO) 9.7 x10^3/uL (2.2-4.8); NEUTROPHILS % (AUTO) 91.1 % (42.0-75.0); PLATELET COUNT 267 X10^3/uL (150.0-450.0); RED BLOOD COUNT 4.41 X10^6/uL (3.5-5.4); WHITE BLOOD COUNT 10.7 X10^3/uL (3.6-10.0)
[2021-06-10 07:06] LABS: PLATELET MORPHOLOGY COMMENT NORMAL (NORMAL)
[2021-06-10] MEDS ORDERED: HEPARIN SODIUM INJ 5000 UNITS ONE ×2 (07:25→09:26)
[2021-06-10] MEDS ORDERED: MARCAINE 0.5% ONE (07:25)
[2021-06-10] MEDS ORDERED: HEPARIN SODIUM IN D5W 75,000 UNITS/1,500 ML BAG ONE (07:26)
[2021-06-10] MEDS ORDERED: FENTANYL VIAL INJ 250 mcg ONE (07:29)
[2021-06-10] MEDS ORDERED: BRIDION ONE (07:29)
[2021-06-10] MEDS ORDERED: ZEMURON 50 MG VIAL ONE (07:30)
[2021-06-10] MEDS ORDERED: ANCEF 1 GRAM IV PREMIX* 2 G/100 ML BAG IV ONE (07:31)
[2021-06-10] MEDS ORDERED: DIPRIVAN VIAL ONE (07:40)
[2021-06-10] MEDS ORDERED: ULTANE GAS IN ONE (07:40)
[2021-06-10] MEDS ORDERED: BREVIBLOC ONE (07:40)
[2021-06-10] MEDS ORDERED: EPHEDRINE SULFATE INJ ONE (07:40)
[2021-06-10] MEDS ORDERED: ZOFRAN INJ 4 MG VIAL ONE (07:40)
[2021-06-10] MEDS ORDERED: VERSED ONE (07:40)
[2021-06-10] MEDS ORDERED: HEPARIN SODIUM IN D5W 50,000 UNITS/1,000 ML BAG ONE (07:42)
[2021-06-10] MEDS ORDERED: NS 1,000 ML IV 1,000 ML ONE (07:58)
[2021-06-10] MEDS ORDERED: BETADINE SOLN ONE (08:03)
[2021-06-10] MEDS ORDERED: LR 1,000 ML IV 1,000 ML IV ONE (08:07)
[2021-06-10] MEDS ORDERED: BENADRYL INJ 50 MG VIAL IVP PRN (10:23)
[2021-06-10] MEDS ORDERED: DILAUDID INJ IVP PRN (10:23)
[2021-06-10] MEDS ORDERED: BARHEMSYS INJ IVP PRN (10:23)
[2021-06-10] MEDS ORDERED: ZOFRAN INJ 4 MG VIAL IVP PRN (10:23)
[2021-06-10] MEDS ORDERED: PHENERGAN INJ 25 MG IM PRN (10:23)
[2021-06-10] MEDS ORDERED: REGLAN INJ 10 MG VIAL IVP PRN (10:23)
--- NOTE | 2021-06-10 10:35 | OR.IMMED ---
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 Discontinue TPA and heparin. Begin Eliquis. Continue hydration for the next 4 hours the discontinue Condition: Stable Final Diagnosis: thrombosis right iliac vein. Probable thrombosis left iliac vein as well .
[2021-06-10] MEDS: LASIX PO SCH ×2 (11:05→16:38)
[2021-06-10] MEDS: PriLOSEC PO SCH (11:06)
[2021-06-10] MEDS: NEURONTIN CAP 300 MG PO SCH ×2 (11:06→20:42)
[2021-06-10] MEDS: MICRO K EXTEN CAP 10 MEQ PO SCH ×2 (11:06→20:42)
[2021-06-10] MEDS: MOBIC TAB 15 MG PO SCH (11:06)
[2021-06-10] MEDS: TOPROL XL PO SCH ×2 (11:06→12:47)
[2021-06-10] MEDS: LR 1,000 ML IV 1,000 ML IV SCH ×3 (13:06→20:41)
[2021-06-10] MEDS: ELIQUIS PO SCH (20:42)
[2021-06-10] MEDS: CRESTOR TAB 10 MG PO SCH (20:42)
[2021-06-10] MEDS: REQUIP PO SCH (20:42)
[2021-06-10] MEDS: KLONOPIN TAB 1 MG PO SCH (20:42)
[2021-06-10] MEDS: PERCOCET TAB 5/325 MG PO PRN (20:48)
[2021-06-11] MEDS: LR 1,000 ML IV 1,000 ML IV SCH ×2 (04:26→09:17)
[2021-06-11] MEDS: MOBIC TAB 15 MG PO SCH (09:16)
[2021-06-11] MEDS: PriLOSEC PO SCH (09:16)
[2021-06-11] MEDS: MICRO K EXTEN CAP 10 MEQ PO SCH (09:16)
[2021-06-11] MEDS: ELIQUIS PO SCH (09:16)
[2021-06-11] MEDS: NEURONTIN CAP 300 MG PO SCH (09:16)
[2021-06-11] MEDS: TOPROL XL PO SCH (09:16)
[2021-06-11] MEDS: PERCOCET TAB 5/325 MG PO PRN (09:19)
[2021-06-11] MEDS: LASIX PO SCH (09:19)
--- NOTE | 2021-06-11 09:58 | W.DIS.FURT ---
Summary of Discharge Discharge Summary of Date Date of Exam: 06/11/21 Admission Date Date of Admission: 06/09/21 Admission Diagnosis Hospital Course: Patient presented recently with significant swelling of the right leg and U/S reported as DVT of entire right femoral and popliteal vein about 4 weeks ago Treated with anti-coagulation and referred to me. Admitted last week and treated for cellulitis right leg .Still with significant swelling and ulcers x 2Trump news now of the right leg .Admitted by me on 06/09/2021 and had placement of a thrombolytic catheter for overnight thrombolysis .it was discovered in the operating room that the femoral vein and popliteal vein where patent but that the entire right iliac vein was occluded . She was taken to the operating suite yesterday where she underwent angiojet mechanical thr ombectomy ,balloon angioplasty and stent insertion of the entire right iliac vein system. It should be noted that she has a stent in the left iliac vein which she had not mentioned in her previous history. That was placed over a year ago and it appears to have fractured and in addition she has thrombosis of the left iliac vein as well. After Aniojet mechanical thrombectomy she was hydrated overnight . She is doing well. She will be discharged on her usual medications including Eliquis, 5 mg BID and I will see her in the office next week . Will need similar approach to the left iliac veins to prevent bed bug exterminator leg complications. Vital Signs: Vital Signs (72 hours) 06/09/21 14:45 06/09/21 15:00 06/09/21 15:22 Temperature 98.4 F 98.0 F Pulse Rate 74 Pulse Rate [Right Radial] 76 76 Respiratory Rate 20 27 H 20 Blood Pressure 190/84 Blood Pressure [Right Arm] 152/67 175/77 O2 Sat by Pulse Oximetry 97 98 97 06/09/21 16:57 06/09/21 17:02 06/09/21 17:07 Temperature 97.5 F L Pulse Rate 113 H 115 H 117 H Pulse Rate [Right Radial] Respiratory Rate 18 18 18 Blood Pressure 181/87 173/78 182/82 Blood Pressure [Right Arm] O2 Sat by Pulse Oximetry 100 100 100 06/09/21 17:12 06/09/21 17:17 06/09/21 17:22 Temperature Pulse Rate 123 H 124 H 118 H Pulse Rate [Right Radial] Respiratory Rate 18 18 18 Blood Pressure 190/88 187/77 187/77 Blood Pressure [Right Arm] O2 Sat by Pulse Oximetry 100 100 100 06/09/21 17:27 06/09/21 17:45 06/09/21 18:00 Temperature 98.5 F 98.2 F Pulse Rate 116 H Pulse Rate [Right Radial] 115 H 114 H Respiratory Rate 18 10 L 19 Blood Pressure 167/80 Blood Pressure [Right Arm] 180/86 180/78 O2 Sat by Pulse Oximetry 100 95 95 06/09/21 18:15 06/09/21 18:30 06/09/21 19:09 Temperature 98.4 F 98.0 F Pulse Rate 101 H Pulse Rate [Right Radial] 112 H 114 H Respiratory Rate 19 11 L 24 Blood Pressure Blood Pressure [Right Arm] 168/77 179/79 O2 Sat by Pulse Oximetry 97 94 L 89 L 06/09/21 19:15 06/09/21 19:19 06/09/21 19:30 Temperature Pulse Rate 101 H 98 H 100 H Pulse Rate [Right Radial] Respiratory Rate 40 H 29 H 46 H Blood Pressure 181/79 172/78 169/89 Blood Pressure [Right Arm] O2 Sat by Pulse Oximetry 94 L 95 95 06/09/21 19:45 06/09/21 20:00 06/09/21 20:15 Temperature 97.7 F Pulse Rate 107 H 105 H 106 H Pulse Rate [Right Radial] Respiratory Rate 25 H 11 L 15 Blood Pressure 171/76 184/80 190/81 Blood Pressure [Right Arm] O2 Sat by Pulse Oximetry 95 97 96 06/09/21 20:30 06/09/21 20:45 06/09/21 21:00 Temperature Pulse Rate 110 H 111 H 110 H Pulse Rate [Right Radial] Respiratory Rate 18 16 17 Blood Pressure 179/79 181/76 175/74 Blood Pressure [Right Arm] O2 Sat by Pulse Oximetry 98 98 98 06/09/21 21:15 06/09/21 21:30 06/09/21 21:45 Temperature Pulse Rate 110 H 108 H 108 H Pulse Rate [Right Radial] Respiratory Rate 19 23 20 Blood Pressure 173/76 167/72 161/69 Blood Pressure [Right Arm] O2 Sat by Pulse Oximetry 97 98 96 06/09/21 22:00 06/09/21 22:15 06/09/21 22:30 Temperature Pulse Rate 106 H 107 H 104 H Pulse Rate [Right Radial] Respiratory Rate 17 22 15 Blood Pressure 162/70 157/67 158/70 Blood Pressure [Right Arm] O2 Sat by Pulse Oximetry 97 96 96 06/09/21 22:45 06/09/21 23:00 06/09/21 23:15 Temperature Pulse Rate 109 H 105 H 106 H Pulse Rate [Right Radial] Respiratory Rate 19 19 17 Blood Pressure 149/68 146/65 141/62 Blood Pressure [Right Arm] O2 Sat by Pulse Oximetry 96 95 94 L 06/09/21 23:30 06/09/21 23:31 06/09/21 23:45 Temperature Pulse Rate 106 H 106 H 104 H Pulse Rate [Right Radial] Respiratory Rate 15 26 H 52 H Blood Pressure 155/68 144/51 Blood Pressure [Right Arm] O2 Sat by Pulse Oximetry 94 L 95 96 06/10/21 00:00 06/10/21 00:02 06/10/21 00:15 Temperature 98.0 F Pulse Rate 104 H 104 H 108 H Pulse Rate [Right Radial] Respiratory Rate 22 19 19 Blood Pressure 153/59 148/63 Blood Pressure [Right Arm] O2 Sat by Pulse Oximetry 97 96 96 06/10/21 00:30 06/10/21 00:45 06/10/21 01:00 Temperature Pulse Rate 104 H 105 H 104 H Pulse Rate [Right Radial] Respiratory Rate 18 15 16 Blood Pressure 147/64 134/63 141/63 Blood Pressure [Right Arm] O2 Sat by Pulse Oximetry 95 95 95 06/10/21 01:15 06/10/21 01:30 06/10/21 01:45 Temperature Pulse Rate 106 H 107 H 103 H Pulse Rate [Right Radial] Respiratory Rate 16 18 17 Blood Pressure 147/64 144/64 137/62 Blood Pressure [Right Arm] O2 Sat by Pulse Oximetry 94 L 96 94 L 06/10/21 02:00 06/10/21 02:15 06/10/21 02:30 Temperature Pulse Rate 101 H 97 H 94 H Pulse Rate [Right Radial] Respiratory Rate 16 14 13 Blood Pressure 137/62 136/62 132/60 Blood Pressure [Right Arm] O2 Sat by Pulse Oximetry 94 L 94 L 95 06/10/21 02:45 06/10/21 03:00 06/10/21 03:15 Temperature Pulse Rate 95 H 96 H 96 H Pulse Rate [Right Radial] Respiratory Rate 13 12 12 Blood Pressure 123/58 123/60 130/59 Blood Pressure [Right Arm] O2 Sat by Pulse Oximetry 93 L 97 96 06/10/21 03:30 06/10/21 03:45 06/10/21 04:00 Temperature 98.8 F Pulse Rate 93 H 92 H 96 H Pulse Rate [Right Radial] Respiratory Rate 12 12 16 Blood Pressure 127/59 132/60 139/64 Blood Pressure [Right Arm] O2 Sat by Pulse Oximetry 95 95 96 06/10/21 04:15 06/10/21 04:30 06/10/21 04:45 Temperature Pulse Rate 95 H 95 H 92 H Pulse Rate [Right Radial] Respiratory Rate 15 15 13 Blood Pressure 137/64 126/62 134/65 Blood Pressure [Right Arm] O2 Sat by Pulse Oximetry 95 95 95 06/10/21 05:00 06/10/21 05:15 06/10/21 05:30 Temperature Pulse Rate 92 H 94 H 90 Pulse Rate [Right Radial] Respiratory Rate 14 19 17 Blood Pressure 133/63 151/67 127/60 Blood Pressure [Right Arm] O2 Sat by Pulse Oximetry 95 94 L 94 L 06/10/21 05:45 06/10/21 06:00 06/10/21 06:15 Temperature Pulse Rate 93 H 93 H 93 H Pulse Rate [Right Radial] Respiratory Rate 16 15 15 Blood Pressure 138/63 146/68 146/57 Blood Pressure [Right Arm] O2 Sat by Pulse Oximetry 94 L 94 L 95 06/10/21 06:30 06/10/21 06:31 06/10/21 06:45 Temperature Pulse Rate 96 H 97 H 91 H Pulse Rate [Right Radial] Respiratory Rate 16 22 15 Blood Pressure 160/71 173/73 Blood Pressure [Right Arm] O2 Sat by Pulse Oximetry 94 L 96 94 L 06/10/21 07:00 06/10/21 10:20 06/10/21 10:25 Temperature 97.3 F L 97.3 F L Pulse Rate 91 H 103 H 104 H Pulse Rate [Right Radial] Respiratory Rate 13 16 16 Blood Pressure 165/72 200/95 208/95 Blood Pressure [Right Arm] O2 Sat by Pulse Oximetry 94 L 100 100 06/10/21 10:30 06/10/21 10:35 06/10/21 10:40 Temperature 97.3 F L 97.3 F L 97.3 F L Pulse Rate 105 H 102 H 101 H Pulse Rate [Right Radial] Respiratory Rate 16 16 16 Blood Pressure 199/94 208/85 209/88 Blood Pressure [Right Arm] O2 Sat by Pulse Oximetry 100 99 99 06/10/21 10:45 06/10/21 10:50 06/10/21 10:55 Temperature 97.3 F L 97.3 F L 97.3 F L Pulse Rate 100 H 93 H 94 H Pulse Rate [Right Radial] Respiratory Rate 16 16 16 Blood Pressure 208/88 206/88 195/86 Blood Pressure [Right Arm] O2 Sat by Pulse Oximetry 99 100 100 06/10/21 11:00 06/10/21 11:05 06/10/21 11:10 Temperature 97.3 F L 97.3 F L 97.3 F L Pulse Rate 95 H 91 H 93 H Pulse Rate [Right Radial] Respiratory Rate 16 16 16 Blood Pressure 204/88 199/83 195/86 Blood Pressure [Right Arm] O2 Sat by Pulse Oximetry 99 99 99 06/10/21 11:40 06/10/21 11:55 06/10/21 12:10 Temperature 97.8 F Pulse Rate 92 H 97 H 89 Pulse Rate [Right Radial] Respiratory Rate 18 18 18 Blood Pressure 200/86 202/91 229/94 Blood Pressure [Right Arm] O2 Sat by Pulse Oximetry 96 94 L 97 06/10/21 12:25 06/10/21 12:40 06/10/21 13:40 Temperature 97.6 F Pulse Rate 87 86 85 Pulse Rate [Right Radial] Respiratory Rate 18 18 18 Blood Pressure 208/86 207/85 209/88 Blood Pressure [Right Arm] O2 Sat by Pulse Oximetry 96 96 96 06/10/21 14:40 06/10/21 15:40 06/10/21 17:06 Temperature 97.5 F L 98.4 F 97.7 F Pulse Rate 88 83 82 Pulse Rate [Right Radial] Respiratory Rate 18 20 20 Blood Pressure 211/88 185/84 194/83 Blood Pressure [Right Arm] O2 Sat by Pulse Oximetry 95 97 94 L 06/10/21 20:00 06/10/21 20:48 06/10/21 21:48 Temperature 98.6 F Pulse Rate 88 Pulse Rate [Right Radial] Respiratory Rate 20 20 20 Blood Pressure 187/77 Blood Pressure [Right Arm] O2 Sat by Pulse Oximetry 90 L 06/11/21 00:00 06/11/21 04:00 06/11/21 08:00 Temperature 98.9 F 97.9 F 98.1 F Pulse Rate 85 87 97 H Pulse Rate [Right Radial] Respiratory Rate 20 20 20 Blood Pressure 153/67 133/67 187/75 Blood Pressure [Right Arm] O2 Sat by Pulse Oximetry 92 L 97 96 06/11/21 09:19 Temperature Pulse Rate Pulse Rate [Right Radial] Respiratory Rate 20 Blood Pressure Blood Pressure [Right Arm] O2 Sat by Pulse Oximetry Labs: Laboratory Last Values WBC 10.7 X10^3/uL (3.6-10.0) H 06/10/21 05:15 RBC 4.41 X10^6/uL (3.5-5.4) 06/10/21 05:15 Hgb 13.4 g/dL (12.0-16.0) 06/10/21 05:15 Hct 39.1 % (36.0-47.0) 06/10/21 05:15 MCV 88.7 fL (80.0-100.0) 06/10/21 05:15 MCH 30.3 pg (27.0-34.0) 06/10/21 05:15 MCHC 34.1 g/dL (33.0-35.0) 06/10/21 05:15 RDW 15.0 % (11.6-16.5) 06/10/21 05:15 Plt Count 267 X10^3/uL (150.0-450.0) 06/10/21 05:15 Plt Count Comment Adequate (ADEQUATE) 06/10/21 05:15 MPV 9.3 fL (7.4-11.0) 06/10/21 05:15 Neut % (Auto) 91.1 % (42.0-75.0) H 06/10/21 05:15 Lymph % (Auto) 6.3 % (21.0-51.0) L 06/10/21 05:15 [place] % (Auto) 2.3 % (0.0-13.0) 06/10/21 05:15 Eos % (Auto) 0.0 % (0.9-2.9) L 06/10/21 05:15 Baso % (Auto) 0.3 % (0.2-1.0) 06/10/21 05:15 Neut # (Auto) 9.7 x10^3/uL (2.2-4.8) H 06/10/21 05:15 Lymph # (Auto) 0.7 X10^3/uL (1.3-2.9) L 06/10/21 05:15 [place] # (Auto) 0.2 x10^3/uL (0.3-0.8) L 06/10/21 05:15 Eos # (Auto) 0.0 x10^3/uL (0.0-0.2) 06/10/21 05:15 Baso # (Auto) 0.0 X10^3/uL (0.0-0.1) 06/10/21 05:15 Absolute Nucleated RBC 0.0 /100WBC 06/10/21 05:15 Total Counted 100 06/10/21 05:15 Neutrophils % (Manual) 90 % (39-76) H 06/10/21 05:15 Lymphocytes % (Manual) 8 % (13-43) L 06/10/21 05:15 Monocytes % (Manual) 2 % (4-9) L 06/10/21 05:15 Plt Morphology Comment Normal (NORMAL) 06/10/21 05:15 RBC Morphology Normal (NORMAL) 06/10/21 05:15 APTT 32.2 SECONDS (22.9-36.5) 06/10/21 05:15 PTT Comment - 06/10/21 05:15 Fibrinogen 458 mg/dL (239-489) 06/10/21 05:15 SARS CoV-2 RNA Rapid JOSE F Negative (NEGATIVE) 06/09/21 14:58 Reason For Visit: RIGHT ILIAC VEIN THROMBOSIS Discharge Date Discharge Date: 06/11/21 Discharge Diagnosis All Active Problems (Updated 06/11/21 @ 09:57 by Christopher Gonzalez) Pain of right hip (Acute) Acute deep vein thrombosis (DVT) of right lower extremity (Acute) Hypertension (Acute) Cellulitis of right leg (Acute) Swelling (Acute) DVT of lower extremity (deep venous thrombosis) (Acute) Hypertension (Acute) Acute respiratory failure due to COVID-19 (Acute) Hypokalemia (Acute) Nausea and vomiting (Active) Chest wall pain (Acute) Skin tear of right forearm without complication (Acute) Contusion of chest wall (Acute) Diverticulitis (Acute) Abdominal pain (Acute) Leg pain, right (Acute) Contusion of multiple sites (Acute) Contusion of rib on right side (Acute) Shoulder sprain (Acute) Contusion of elbow (Acute) Hip sprain (Acute) Skin tear (Acute) Dyspnea (Acute) COVID-19 (Acute) Pneumonia due to COVID-19 virus (Acute) Hypoxia (Acute) CAD (coronary artery disease) (Chronic) Plan of Treatment: Continue with present treatment and follow up plan. Pt is to keep follow up appointment as instructed and take medications as ordered. Discharge Medications Discharge Medications: adhesive tape Allergy (Verified 05/30/21 14:02) codeine Allergy (Verified 05/04/21 14:25) CONTINUE taking the following medications gabapentin 300 mg PO TID 06/10/21 [History] gentamicin 1 applic TOPICAL BID 06/10/21 [History] hydrocodone-acetaminophen 1 tab PO BID MDD 3 TABS 06/10/21 [History] mupirocin 1 applic TOPICAL BID 06/10/21 [History] Follow up and Referral Follow Up: Carlos 1 Week Discharge Disposition Discharge Disposition: stable Discharge Condition: stable Discharge Plan Discharge Plan Hospital Course: Patient presented recently with significant swelling of the right leg and U/S reported as DVT of entire right femoral and popliteal vein about 4 weeks ago Treated with anti-coagulation and referred to me. Admitted last week and treated for cellulitis right leg .Still with significant swelling and ulcers x 2Trump news now of the right leg .Admitted by me on 06/09/2021 and had placement of a thrombolytic catheter for overnight thrombolysis .it was discovered in the operating room that the femoral vein and popliteal vein where patent but that the entire right iliac vein was occluded . She was taken to the operating suite yesterday where she underwent angiojet mechanical thrombectomy ,balloon angioplasty and stent insertion of the entire right iliac vein system. It should be noted that she has a stent in the left iliac vein which she had not mentioned in her previous history. That was placed over a year ago and it appears to have fractured and in addition she has thrombosis of the left iliac vein as well. After Aniojet mechanical thrombectomy she was hydrated overnight . She is doing well. She will be discharged on her usual medications including Eliquis, 5 mg BID and I will see her in the office next week . Will need similar approach to the left iliac veins to prevent bed bug exterminator leg complications. Patient Disposition: 01 HOME, SELF-CARE Condition: Stable Health Concerns: Post Hospitalization: new medications and changes needed to prevent readmission or further decline. Pt educated and given instructions on all concerns. Care Plan Goals: Walking well, decreased swelling both LE and resolution of ulcers right leg Plan of Treatment: Continue with present treatment and follow up plan. Pt is to keep follow up appointment as instructed and take medications as ordered. Prescription drug monitoring program results: PDMP was not reviewed Prescriptions: Continued pramipexole 1 mg tablet 1 mg PO BID PRN (Reason: Restless Leg(S)) RF: 0 alprazolam 1 mg tablet 1 mg PO BID PRN (Reason: Anxiety) RF: 0 potassium chloride 10 mEq tablet extended release 10 meq PO BID RF: 0 tizanidine 4 mg Capsule 4 mg PO BID PRN (Reason: MUSCLE RELAXER) RF: 0 clonazepam 1 mg tablet 1 mg PO HS PRN (Reason: Sleep) RF: 0 rosuvastatin 10 mg tablet 10 mg PO DAILY RF: 0 meloxicam [Mobic] 15 mg tablet 15 mg PO DAILY RF: 0 metoprolol succinate 25 mg tablet extended release 24 hr 12.5 mg PO DAILY RF: 0 Eliquis 5 mg Tablet 5 mg PO BID Qty: 60 RF: 0 omeprazole 40 mg Capsule,Delayed Release(Dr/Ec) 40 mg PO DAILY RF: 0 gentamicin 0.1 % Cream 1 applic TOPICAL BID Qty: 1 RF: 1 amoxicillin-pot clavulanate [Augmentin] 875-125 mg Tablet 1 tab PO Q12H 10 Days Qty: 20 RF: 0 gentamicin 0.1 % Cream 1 applic TOPICAL BID RF: 0 mupirocin 2 % Ointment 1 applic TOPICAL BID RF: 0 hydrocodone-acetaminophen 7.5-325 mg tablet 1 tab PO BID MDD 3 TABS RF: 0 gabapentin 300 mg Capsule 300 mg PO TID RF: 0 Follow ups/Referrals Follow ups/Referrals: WILLY BREAUX [Primary Care Provider] - 06/22/21 1:30 pm Christopher Gonzalez [STAFF PHYSICIAN] - 06/29/21 10:00 am Instructions Instructions: Coronary Angioplasty, Care After, Bleeding Precautions When on Anticoagulant Therapy, Adult, Cellulitis, Adult, [id number], Hypertension, Adult, [id number], Venous Thromboembolism Prevention Stand Alone Forms: Excuse From Work or School, Precautions for COVID19, [facility], Patient Portal, Social Distancing
--- NOTE | 2021-06-11 11:01 | DR.OPNOTE ---
OP NOTE Pre-Op Diagnosis: complete thrombosis right common and right external iliac veins Post-Op Diagnosis: same Procedure Date Date Of Procedure: 06/10/21 Procedure: This patient had undergone venogram of the right lower extremity via a right popliteal approach yesterday showing the right femoral vein and popliteal veins to be open and patent . There was complete occlusion of the right common iliac and right external iliac veins . I placed an EKOS catheter and Infused TPA overnight. Patient was returned to the operating Suite, General anesthesia induced and the patient placed in the prone position. Time out for the procedure obtained and the right popliteal space prepped and draped in sterile fashion. The thrombolytic catheter was removed and a guide wire placed all the way into the vena cava. Repeat venogram still showed significant t hrombosis of the right common and external iliac veins. Clot in the common femoral vein was resolved. I placed a 12 mm x 40 mm [place] balloon and dilated the area of thrombosis in the entire iliac vein. I then assembled the Angiojet device and performed Angiojet mechanical thrombectomy of the right common and right external iliac veins. Following this we assembled the " Clot Guy" device to remove additional clot of the right iliac vein. At this point we performed intravascular ultrasound showing a patent common iliac and external iliac veins on the right . I placed a 16 mm by 90 mm Wall stent all the way into the vena cava extend down into the common iliac vein. Additional stent measuring 16 x 60 mm was overlapped into the external iliac vein and finally a 16 by 60 mm Wall stent overlapped the previous stent into the common femoral vein. 16 mm 60 mm [place] scientific esophageal balloon used to expand all the stents . Several balloons were required as they would break under pressure. Repeat intravascular ultrasound showed excellent results with complete patency of the right common iliac and right external and right common femoral veins. It should be noted that the patient had evidence of a stent in the left common iliac vein which appeared to have been fractured. The left common iliac vein also is thrombosed. That will be addressed at a later time. Patient was extubated ,placed in the Supine position and taken the PACU and then to the ICU. We will discontinue the TPA and the Heparin drip. She will be placed on Eliquis 5 mg PO BID. Type of Anesthesia: General Anesthetic w/ETT Findings: Complete thrombosis of right common and external iliac veins Specimen/Pathology: none Type of Fluids Used:: Lactated Ringers Total Amount of Fluid Infused:: 1000cc Urine output: 350 cc EBL: 100 cc Drains/Tubes Placed: None Hardware: stents x 3 to common iliac and external iliac veins x 3. Complications:: none Needle/Sponge Count:: correct Disposition/Condition: Pt. tolerated procedure without difficulty. To ICU in stable condition.
[2021-06-11 12:17] VITALS: BP 152/67
[2021-06-11] MEDS ORDERED: HEPARIN SODIUM INJ 5000 UNITS IVP ONE (12:17)
== END 2021-06-11 13:20 | disposition home health service (06) | DRG 272 ==
LOC: ICU → OBSVTOIN 14:00 → MED/SURG 06-10 11:15
PROVIDERS: ADMIT Surgery; ATTEND Surgery
DX: I82.431 Acute embolism and thrombosis of right popliteal vein; K21.9 Gastro-esophageal reflux disease without esophagitis; R60.0 Localized edema; I25.10 Atherosclerotic heart disease of native coronary artery without angina pectoris; I82.421 Acute embolism and thrombosis of right iliac vein; I10 Essential (primary) hypertension; E78.2 Mixed hyperlipidemia

== ENCOUNTER 2021-06-22 12:08 | Observation (INO) ==
[2021-06-22 16:58] VITALS: BMI 31.4
[2021-06-22] MEDS ORDERED: HEPARIN SODIUM INJ 5000 UNITS IVP ONE (17:02)
[2021-06-22] MEDS: LR 1,000 ML IV 1,000 ML IV SCH (17:39)
[2021-06-22] MEDS ORDERED: MIRAPEX TAB 1 MG PO SCH (18:00)
[2021-06-22] MEDS: MICRO K EXTEN CAP 10 MEQ PO SCH (21:33)
[2021-06-22] MEDS: CRESTOR TAB 10 MG PO SCH (21:33)
[2021-06-22] MEDS: LOPRESSOR TAB 25 MG PO SCH (21:33)
[2021-06-22] MEDS: NEURONTIN CAP 300 MG PO SCH (21:34)
[2021-06-22] MEDS: ZANAFLEX PO SCH (21:34)
[2021-06-23] MEDS: XANAX PO PRN (00:03)
[2021-06-23 06:11] LABS: BASOPHILS # (AUTO) 0.1 X10^3/uL (0.0-0.1); BASOPHILS % (AUTO) 0.7 % (0.2-1.0); EOSINOPHILS # (AUTO) 0.2 x10^3/uL (0.0-0.2); EOSINOPHILS % (AUTO) 2.6 % (0.9-2.9); HEMATOCRIT 33.9 % (36.0-47.0); HEMOGLOBIN 11.8 g/dL (12.0-16.0); LYMPHOCYTES # (AUTO) 2.1 X10^3/uL (1.3-2.9); LYMPHOCYTES % (AUTO) 24.1 % (21.0-51.0); MEAN CORPUSCULAR HEMOGLOBIN 30.5 pg (27.0-34.0); MEAN CORPUSCULAR HGB CONC 34.7 g/dL (33.0-35.0); MEAN CORPUSCULAR VOLUME 87.9 fL (80.0-100.0); MEAN PLATELET VOLUME 9.6 fL (7.4-11.0); MONOCYTES # (AUTO) 0.6 x10^3/uL (0.3-0.8); MONOCYTES % (AUTO) 7.4 % (0.0-13.0); NEUTROPHILS # (AUTO) 5.7 x10^3/uL (2.2-4.8); NEUTROPHILS % (AUTO) 65.2 % (42.0-75.0); RED BLOOD COUNT 3.85 X10^6/uL (3.5-5.4); RED CELL DISTRIBUTION WIDTH 14.8 % (11.6-16.5); WHITE BLOOD COUNT 8.7 X10^3/uL (3.6-10.0)
[2021-06-23 06:35] LABS: ALANINE AMINOTRANSFERASE 14 Units/L (12-78); ALKALINE PHOSPHATASE 76 Units/L (46-116); ASPARTATE AMINO TRANSFERASE 12 Units/L (15-37); BLOOD UREA NITROGEN 11 mg/dL (7-18); CALCIUM 8.9 mg/dL (8.5-10.1); CARBON DIOXIDE 28.5 mmol/L (21-32); CHLORIDE 110 mmol/L (98-107); COR CA(FOR HYPOALB) 9.7 mg/dL (8.5-10.1); CREATININE 0.82 mg/dL (0.55-1.02); SODIUM 144 mmol/L (136-145); TOTAL PROTEIN 6.2 g/dL (6.4-8.2); eGFR NON BLACK RACES > 60 (>60)
[2021-06-23] MEDS: LR 1,000 ML IV 1,000 ML IV SCH ×2 (06:45→20:19)
[2021-06-23] MEDS: NEURONTIN CAP 300 MG PO SCH ×2 (09:03→21:16)
[2021-06-23] MEDS: PriLOSEC PO SCH (09:03)
[2021-06-23] MEDS: MOBIC TAB 15 MG PO SCH (09:03)
[2021-06-23] MEDS: MICRO K EXTEN CAP 10 MEQ PO SCH ×2 (09:03→21:15)
[2021-06-23] MEDS: LASIX PO SCH ×2 (09:03→17:25)
[2021-06-23] MEDS: LOPRESSOR TAB 25 MG PO SCH (09:03)
[2021-06-23] MEDS: ZANAFLEX PO SCH ×2 (09:04→21:15)
[2021-06-23] MEDS ORDERED: HEPARIN SODIUM IN D5W 25,000 UNITS/500 ML BAG IV PRN (10:28)
--- NOTE | 2021-06-23 10:32 | NOTE.SOAP ---
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 Patient had been scheduled for intervention of the left leg but presented with more swelling of the right leg after we held the Xarelto pending procedure on the left leg. Ultrasound showed non-occlusive thrombosis of the distal end of the right iliac vein stent. Patient admitted and placed on heparin drip. Objective Data Temperature: 98.1 F Pulse Rate: 75 Respiratory Rate: 20 Blood Pressure: 150/83 O2 Sat by Pulse Oximetry: 99 Objective Data: Swelling right LE , crusting wounds right leg healing Assessment Assessment: LEft iliac vein thrombosis, right distal iliac vein with non- occlusive thrombosis. Plan Plan: Continue heparin drip . Will plan intervention both iliac veins tomorrow
[2021-06-23] MEDS: PERCOCET TAB 5/325 MG PO PRN ×2 (10:57→21:16)
[2021-06-23] MEDS ORDERED: HEPARIN SODIUM INJ 5000 UNITS IVP ONE (11:50)
[2021-06-23] MEDS ORDERED: LOPRESSOR TAB 25 MG PO ONE (19:25)
[2021-06-23] MEDS: CRESTOR TAB 10 MG PO SCH (21:15)
[2021-06-23] MEDS: KLONOPIN TAB 1 MG PO SCH (21:16)
--- NOTE | 2021-06-23 23:27 | NOTE.SOAP ---
Soap Note Note for Day of Date of Exam: 06/23/21 Subjective Data Subjective Data: Patient doing well and is on the heparin drip Objective Data Pulse Rate: 71 Respiratory Rate: 18 Blood Pressure: 193/79 O2 Sat by Pulse Oximetry: 98 Objective Data: Both legs with scattered ecchymosis and 2+ swelling PTT=82.5 Assessment Assessment: iliac vein thrombosis Plan Plan: Adjust heparin drip according to protocol. Intervention of both iliac veins in the AM.
[2021-06-24 02:32] LABS: BASOPHILS # (AUTO) 0.1 X10^3/uL (0.0-0.1); BASOPHILS % (AUTO) 0.9 % (0.2-1.0); EOSINOPHILS # (AUTO) 0.3 x10^3/uL (0.0-0.2); EOSINOPHILS % (AUTO) 3.1 % (0.9-2.9); HEMATOCRIT 33.5 % (36.0-47.0); HEMOGLOBIN 11.5 g/dL (12.0-16.0); LYMPHOCYTES # (AUTO) 2.2 X10^3/uL (1.3-2.9); LYMPHOCYTES % (AUTO) 27.4 % (21.0-51.0); MEAN CORPUSCULAR HEMOGLOBIN 30.6 pg (27.0-34.0); MEAN CORPUSCULAR HGB CONC 34.3 g/dL (33.0-35.0); MEAN CORPUSCULAR VOLUME 89.3 fL (80.0-100.0); MEAN PLATELET VOLUME 9.5 fL (7.4-11.0); MONOCYTES # (AUTO) 0.5 x10^3/uL (0.3-0.8); MONOCYTES % (AUTO) 6.2 % (0.0-13.0); NEUTROPHILS % (AUTO) 62.4 % (42.0-75.0); RED BLOOD COUNT 3.75 X10^6/uL (3.5-5.4); RED CELL DISTRIBUTION WIDTH 14.7 % (11.6-16.5); WHITE BLOOD COUNT 8.1 X10^3/uL (3.6-10.0)
[2021-06-24 02:41] LABS: ALANINE AMINOTRANSFERASE 15 Units/L (12-78); ALBUMIN 2.7 g/dL (3.4-5.0); ALKALINE PHOSPHATASE 76 Units/L (46-116); ASPARTATE AMINO TRANSFERASE 11 Units/L (15-37); BLOOD UREA NITROGEN 11 mg/dL (7-18); CALCIUM 8.4 mg/dL (8.5-10.1); CHLORIDE 107 mmol/L (98-107); COR CA(FOR HYPOALB) 9.4 mg/dL (8.5-10.1); COR NA(FOR HYPERGLY) 144 mmol/L (136-145); CREATININE 0.93 mg/dL (0.55-1.02); SODIUM 144 mmol/L (136-145); TOTAL PROTEIN 5.7 g/dL (6.4-8.2); eGFR NON BLACK RACES > 60 (>60)
[2021-06-24] MEDS: LR 1,000 ML IV 1,000 ML IV SCH ×2 (08:53→19:19)
[2021-06-24] MEDS: LOPRESSOR TAB 25 MG PO SCH ×2 (08:53→21:41)
[2021-06-24] MEDS: LASIX PO SCH ×2 (09:00→17:57)
[2021-06-24] MEDS ORDERED: LR 1,000 ML IV 1,000 ML IV ONE (09:01)
[2021-06-24] MEDS ORDERED: PERCOCET TAB 5/325 MG ONE (09:11)
[2021-06-24] MEDS: PERCOCET TAB 5/325 MG PO PRN (09:16)
[2021-06-24] MEDS ORDERED: ANCEF 1 GRAM IV PREMIX* 2 G/100 ML BAG IV ONE (09:22)
[2021-06-24] MEDS ORDERED: PROTAMINE SULFATE 50 MG VIAL ONE (09:52)
[2021-06-24] MEDS ORDERED: FENTANYL VIAL INJ 100 mcg ONE (09:53)
[2021-06-24] MEDS ORDERED: HEPARIN SODIUM INJ 5000 UNITS ONE ×2 (09:55→11:01)
[2021-06-24] MEDS ORDERED: MARCAINE 0.5% ONE (09:55)
[2021-06-24] MEDS ORDERED: HEPARIN SODIUM IN D5W 75,000 UNITS/1,500 ML BAG ONE (09:55)
[2021-06-24] MEDS ORDERED: KETAMINE HCL ONE (10:29)
[2021-06-24] MEDS ORDERED: VERSED ONE (10:29)
[2021-06-24] MEDS ORDERED: EPHEDRINE SULFATE INJ ONE (10:29)
[2021-06-24] MEDS ORDERED: DIPRIVAN VIAL ONE (10:29)
[2021-06-24] MEDS ORDERED: BETADINE SOLN ONE (10:42)
[2021-06-24] MEDS ORDERED: NS 500 ML IV 500 ML IV ONE (11:01)
--- NOTE | 2021-06-24 11:56 | OR.IMMED ---
IMMEDIATE POST-OP NOTE Immediate Post-Op Note Pre-Op Diagnosis: History bilateral iliac vein thrombosis right side has been tr eated Post-Op Diagnosis: Patent right femoral and iliac vein, significant narrowing of left iliac vein flow through distal old venous stent Procedure: bilateral iliac venograms , " Clot Guy" thrombectomy of left external iloiac vein inside old venous stent . balloon angioplasty external iliac vein stent Description of Procedure: see operative summary Surgeon/Internal Control Manager: Carlos Findings: as above , area of concern distal right iliac stent extending into the common femoral vein is just the metal stent noted on ultrasound. There is no thrombosis of the common femoral vein at the level of the stent. Specimens Removed: none Estimated Blood Loss: 50cc Complications: none Progress Notes: Return to floor , discharge home later today Condition: Stable Final Diagnosis: as above
[2021-06-24] MEDS: PriLOSEC PO SCH (13:16)
[2021-06-24] MEDS: MICRO K EXTEN CAP 10 MEQ PO SCH ×2 (13:16→21:40)
[2021-06-24] MEDS: MOBIC TAB 15 MG PO SCH (13:16)
[2021-06-24] MEDS: NEURONTIN CAP 300 MG PO SCH ×2 (13:16→21:41)
[2021-06-24] MEDS: ZANAFLEX PO SCH ×2 (13:16→21:41)
[2021-06-24] MEDS ORDERED: BENADRYL INJ 50 MG VIAL IVP ONE (13:32)
[2021-06-24] MEDS ORDERED: SOLU-Medrol 125 MG VIAL IVP ONE (13:32)
[2021-06-24] MEDS ORDERED: SOLU-Medrol 125 MG VIAL ONE (13:38)
[2021-06-24] MEDS ORDERED: BENADRYL INJ 50 MG VIAL ONE (13:38)
[2021-06-24] MEDS: ZOFRAN INJ 4 MG VIAL IVP PRN ×2 (13:41→21:04)
[2021-06-24] MEDS ORDERED: CATAPRES TAB 0.2 MG PO ONE (15:45)
[2021-06-24] MEDS ORDERED: LOPRESSOR TAB 25 MG PO ONE (15:45)
[2021-06-24] MEDS ORDERED: CATAPRES TAB 0.2 MG ONE (15:49)
[2021-06-24] MEDS ORDERED: LOPRESSOR TAB 25 MG ONE (15:49)
[2021-06-24] MEDS: XANAX PO PRN (16:36)
--- NOTE | 2021-06-24 20:45 | DR.OPNOTE ---
OP NOTE Pre-Op Diagnosis: left iliac vein thrombosis. Thrombosis at distal end right iliac vein stent Post-Op Diagnosis: thrombus of left ext. iliac vein in stent ,no thrombosis right iliac vein Procedure Date Date Of Procedure: 06/24/21 Procedure: The patients was taken to the operative suite and placed in the Supine position. Both groins were prepped and draped in sterile fashion. Sedation was supervised by myself. Time out for the procedure obtained. Ultrasound used to identify the left greater saphenous vein and the skin overlying it infiltrated with 0. 5% Marcaine . Ultrasound and needle was used to access the greater saphenous Vein on the left and a 0. 012 inch guide wire placed. Incision made over the guide wire at the skin level and a microsheath passed over the wire into the left common femoral vein by way of the left greater saphenous vein . The small wire exchanged for a 0. 035 inch Advantage glidewire and the small sheath exchanged for a 10 Thai vascular sheath.The sheath was flushed with heparinized saline. Ultrasound used to identify the right common femoral vein below the stent but I could not access it, so therefore I placed the needle using ultrasound through the wall of the stent into the stent itself and the micro sheath placed over this. Venogram carried out of the left side showing significant narrowing of the left external iliac vein inside the stent. The right side venogram showed excellent result of stenting of the right iliac vein which had been completely occluded previously. Over the wire in the left iliac vein we placed a 14 mm by 60 mm vascular balloon and used it to sequentially dilate the entire area. There was still significant narrowing therefore we placed the " Clot Guy " and performed mechanical thrombectomy of the left external iliac vein inside the previously placed stent. I then balloon this area opened again with the 14 mm by 60 mm vascular balloon. There was an excellent result. Sheath in the left groin and microsheath in the right groin were discontinued and pressure held over each groin for 10 minutes and hemostatic dressing placed. The patient was given 30 mg of IV protamine. The patient was taking the same day surgery in good condition. Type of Anesthesia: Local (0.5% Marcaine ) Anesthesia Comment: plus MAC Findings: This patient was seen for complete thrombosis of the right iliac vein system with marked swelling of both lower extremities and underwent thrombectomy and angioplasty and stenting of the right iliac vein. At that time the patient was noted to have probable thrombosis of the left iliac vein with history of previous left iliac vein stenting. She was discharged on Xarelto and aspirin with a plan to assess and intervene of the left iliac vein but had noted pain in the right groin and question of recurrent swelling of the right leg. Ultrasound showed possible 90c of rhombus at the distal end of the stent in the right common femoral vein. Because of the length of the occlusion, the stent have been extended below the inguinal ligament on the right side. At the time of this procedure the right side was completely patent and I believe what they saw on the distal end of the stent was actually the stent itself in the groin .there was no promise of the right side. Inside the stent on the left side there was thrombosis against the mccrary and significant narrowing of the left external iliac vein. The narrowing was ballooned open and then with the external right iliac vein inside the stent underwent peripheral based thrombectomy using the " Clot Guy" device. Specimen/Pathology: none Type of Fluids Used:: Lactated Ringers Total Amount of Fluid Infused:: 400 cc Urine output: 500cc EBL: 50 cc Drains/Tubes Placed: None Complications:: none Needle/Sponge Count:: correct Disposition/Condition: Pt. tolerated procedure without difficulty. Taken back to the 2nd floor at the conclusion of the case.
[2021-06-24 21:20] LABS: BASOPHILS % (AUTO) 0.4 % (0.2-1.0); EOSINOPHILS % (AUTO) 0.1 % (0.9-2.9); HEMATOCRIT 37.6 % (36.0-47.0); HEMOGLOBIN 12.6 g/dL (12.0-16.0); LYMPHOCYTES # (AUTO) 0.7 X10^3/uL (1.3-2.9); LYMPHOCYTES % (AUTO) 6.1 % (21.0-51.0); MEAN CORPUSCULAR HEMOGLOBIN 29.8 pg (27.0-34.0); MEAN CORPUSCULAR HGB CONC 33.5 g/dL (33.0-35.0); MEAN CORPUSCULAR VOLUME 88.8 fL (80.0-100.0); MEAN PLATELET VOLUME 9.3 fL (7.4-11.0); MONOCYTES # (AUTO) 0.1 x10^3/uL (0.3-0.8); MONOCYTES % (AUTO) 1.2 % (0.0-13.0); NEUTROPHILS # (AUTO) 10.5 x10^3/uL (2.2-4.8); NEUTROPHILS % (AUTO) 92.2 % (42.0-75.0); RED BLOOD COUNT 4.23 X10^6/uL (3.5-5.4); RED CELL DISTRIBUTION WIDTH 14.9 % (11.6-16.5); WHITE BLOOD COUNT 11.4 X10^3/uL (3.6-10.0)
[2021-06-24] MEDS: CRESTOR TAB 10 MG PO SCH (21:40)
[2021-06-24] MEDS: ELIQUIS PO SCH (21:41)
[2021-06-24] MEDS: KLONOPIN TAB 1 MG PO SCH (21:42)
[2021-06-24] MEDS ORDERED: MAALOX or MYLANTA PO PRN (21:54)
[2021-06-24 22:54] LABS: PLATELET MORPHOLOGY COMMENT NORMAL (NORMAL)
[2021-06-25] MEDS: LR 1,000 ML IV 1,000 ML IV SCH ×3 (06:19→11:54)
[2021-06-25 06:25] LABS: BASOPHILS % (AUTO) 0.1 % (0.2-1.0); EOSINOPHILS % (AUTO) 0.1 % (0.9-2.9); HEMATOCRIT 32.8 % (36.0-47.0); HEMOGLOBIN 11.2 g/dL (12.0-16.0); LYMPHOCYTES # (AUTO) 1.3 X10^3/uL (1.3-2.9); LYMPHOCYTES % (AUTO) 10.4 % (21.0-51.0); MEAN CORPUSCULAR HEMOGLOBIN 30.3 pg (27.0-34.0); MEAN CORPUSCULAR HGB CONC 34.3 g/dL (33.0-35.0); MEAN CORPUSCULAR VOLUME 88.3 fL (80.0-100.0); MEAN PLATELET VOLUME 9.5 fL (7.4-11.0); MONOCYTES # (AUTO) 0.7 x10^3/uL (0.3-0.8); MONOCYTES % (AUTO) 5.4 % (0.0-13.0); NEUTROPHILS # (AUTO) 10.4 x10^3/uL (2.2-4.8); RED BLOOD COUNT 3.71 X10^6/uL (3.5-5.4); RED CELL DISTRIBUTION WIDTH 14.8 % (11.6-16.5); WHITE BLOOD COUNT 12.4 X10^3/uL (3.6-10.0)
[2021-06-25 06:42] LABS: ALANINE AMINOTRANSFERASE 16 Units/L (12-78); ALBUMIN 2.8 g/dL (3.4-5.0); ALKALINE PHOSPHATASE 72 Units/L (46-116); ASPARTATE AMINO TRANSFERASE 43 Units/L (15-37); BLOOD UREA NITROGEN 17 mg/dL (7-18); CARBON DIOXIDE 27.6 mmol/L (21-32); CHLORIDE 105 mmol/L (98-107); COR NA(FOR HYPERGLY) 142 mmol/L (136-145); CREATININE 0.99 mg/dL (0.55-1.02); SODIUM 140 mmol/L (136-145); TOTAL PROTEIN 5.8 g/dL (6.4-8.2); eGFR NON BLACK RACES 57 (>60)
[2021-06-25] MEDS: NEURONTIN CAP 300 MG PO SCH (09:08)
[2021-06-25] MEDS: PriLOSEC PO SCH (09:08)
[2021-06-25] MEDS: MOBIC TAB 15 MG PO SCH (09:08)
[2021-06-25] MEDS: ZANAFLEX PO SCH (09:08)
[2021-06-25] MEDS: ELIQUIS PO SCH (09:08)
[2021-06-25] MEDS: MICRO K EXTEN CAP 10 MEQ PO SCH (09:08)
[2021-06-25] MEDS: LOPRESSOR TAB 25 MG PO SCH (09:14)
[2021-06-25] MEDS: LASIX PO SCH (09:18)
--- NOTE | 2021-06-25 12:32 | W.DIS.FURT ---
Summary of Discharge Discharge Summary of Date Date of Exam: 06/25/21 Admission Date Date of Admission: 06/22/21 Admission Diagnosis Hospital Course: 80 year old female who had presented several weeks ago with deep Venous Thrombosis of the right lower extremity. She failed anticoagulation with Eliquis and presented with extensive swelling. She also has swelling of the left leg with history of stenting of the left iliac vein previously, approximately two years before.Two weeks ago she was taken to the operating Suite where she underwent venogram gram of the right lower extremity showing no deep Venous Thrombosis of the femoral vein or popliteal vein as ultrasound had suggested but instead had severe complete Venous occlusion of the common and external iliac veins on the right side. Question of clot of the left iliac vein with q uestion of fractured stent there. At that time she underwent angiojet thrombectomyof the right iliac vein with balloon angioplasty and subsequent stenting of the right common and external iliac veins. She had been treated with TPA thrombolysis for 24 hours prior to this. She was discharged on PO Eliquis. He was scheduled for intervention of the left iliac vein yesterday but presented earlier in the week complaining of pain the right groin and ultrasound suggested possible nonocclusive thrombus at the distal end of the right iliac stent. She was placed on Heparin and taken to the operating suite yesterday and venogram of the right leg showed no clot with excellent flow through the stents in the right iliac vein. I believe what they thought was clot was the distal end of the stent as it does cross the inguinal ligament on the right side. She underwent venogram of the left leg showing severe narrowing of the external iliac vein on the left inside the previously Placed stent. She went balloon angioplasty and mechanical thrombectomy using the " clot Guy " inside the left iliac vein with excellent results. Post procedure she had elevation of her blood pressure which has been treated with her usual medications including anti-anxiety medications. She will be discharged home on her usual home medications including Eliquis 5 mg BID and Percocet 5 mg tablets one every six hours. Pain. She will follow up with me in my office in one week. Post procedure she has had some difficulty swallowing solids which has been a problem in the past which required EGD and dilatation of the esophagus. She has significant history of gastroesophageal reflux in the past which is treated with po medications When I see her in the office, if this is still present I will plan dilation of esophagus. Vital Signs: Vital Signs (72 hours) 06/22/21 16:00 06/22/21 20:00 06/23/21 00:00 Temperature 98.3 F 98.3 F 98.4 F Pulse Rate Pulse Rate [Left Radial] 81 89 73 Respiratory Rate 20 22 18 Blood Pressure Blood Pressure [Left Arm] 150/69 190/88 148/64 Blood Pressure [Right Arm] O2 Sat by Pulse Oximetry 100 100 95 06/23/21 03:37 06/23/21 08:00 06/23/21 10:57 Temperature 97.8 F 98.1 F Pulse Rate Pulse Rate [Left Radial] 73 75 Respiratory Rate 20 20 20 Blood Pressure Blood Pressure [Left Arm] 160/92 150/83 Blood Pressure [Right Arm] O2 Sat by Pulse Oximetry 96 99 06/23/21 11:00 06/23/21 11:42 06/23/21 11:57 Temperature 98.1 F 97.6 F Pulse Rate 75 Pulse Rate [Left Radial] 67 Respiratory Rate 20 20 20 Blood Pressure 150/83 Blood Pressure [Left Arm] 117/57 Blood Pressure [Right Arm] O2 Sat by Pulse Oximetry 99 97 06/23/21 12:00 06/23/21 13:00 06/23/21 14:00 Temperature Pulse Rate Pulse Rate [Left Radial] 65 72 74 Respiratory Rate 20 20 20 Blood Pressure Blood Pressure [Left Arm] 135/70 143/65 160/72 Blood Pressure [Right Arm] O2 Sat by Pulse Oximetry 99 98 99 06/23/21 15:00 06/23/21 16:00 06/23/21 17:00 Temperature 97.8 F Pulse Rate Pulse Rate [Left Radial] 70 69 85 Respiratory Rate 20 20 20 Blood Pressure Blood Pressure [Left Arm] 145/78 156/70 157/68 Blood Pressure [Right Arm] O2 Sat by Pulse Oximetry 96 98 98 06/23/21 17:46 06/23/21 19:00 06/23/21 20:00 Temperature 97.8 F 97.8 F Pulse Rate Pulse Rate [Left Radial] 75 78 74 Respiratory Rate 20 18 18 Blood Pressure Blood Pressure [Left Arm] 172/72 193/78 214/88 Blood Pressure [Right Arm] O2 Sat by Pulse Oximetry 98 96 99 06/23/21 21:00 06/23/21 21:16 06/23/21 22:00 Temperature 98.3 F Pulse Rate Pulse Rate [Left Radial] 80 71 Respiratory Rate 18 20 18 Blood Pressure Blood Pressure [Left Arm] 197/84 193/79 Blood Pressure [Right Arm] O2 Sat by Pulse Oximetry 96 98 06/23/21 22:16 06/23/21 23:00 06/23/21 23:27 Temperature Pulse Rate 71 Pulse Rate [Left Radial] 70 Respiratory Rate 20 18 18 Blood Pressure 193/79 Blood Pressure [Left Arm] 188/81 Blood Pressure [Right Arm] O2 Sat by Pulse Oximetry 96 98 06/24/21 00:00 06/24/21 01:00 06/24/21 02:00 Temperature 97.6 F Pulse Rate Pulse Rate [Left Radial] 70 65 65 Respiratory Rate 18 16 16 Blood Pressure Blood Pressure [Left Arm] 123/58 105/55 134/60 Blood Pressure [Right Arm] O2 Sat by Pulse Oximetry 97 96 98 06/24/21 03:00 06/24/21 04:00 06/24/21 05:00 Temperature 97.8 F Pulse Rate Pulse Rate [Left Radial] 61 76 69 Respiratory Rate 20 20 18 Blood Pressure Blood Pressure [Left Arm] 139/60 168/73 185/81 Blood Pressure [Right Arm] O2 Sat by Pulse Oximetry 97 99 99 06/24/21 06:00 06/24/21 07:00 06/24/21 08:00 Temperature Pulse Rate Pulse Rate [Left Radial] 70 69 68 Respiratory Rate 18 18 18 Blood Pressure Blood Pressure [Left Arm] 190/90 165/77 175/77 Blood Pressure [Right Arm] O2 Sat by Pulse Oximetry 99 99 100 06/24/21 09:15 06/24/21 09:16 06/24/21 10:16 Temperature Pulse Rate 74 Pulse Rate [Left Radial] Respiratory Rate 16 16 20 Blood Pressure 208/89 Blood Pressure [Left Arm] Blood Pressure [Right Arm] O2 Sat by Pulse Oximetry 96 06/24/21 12:00 06/24/21 12:15 06/24/21 12:30 Temperature 97.9 F Pulse Rate Pulse Rate [Left Radial] 73 72 75 Respiratory Rate 16 18 16 Blood Pressure Blood Pressure [Left Arm] 187/86 199/88 201/90 Blood Pressure [Right Arm] O2 Sat by Pulse Oximetry 98 92 L 95 06/24/21 12:45 06/24/21 13:00 06/24/21 14:00 Temperature Pulse Rate Pulse Rate [Left Radial] 75 75 68 Respiratory Rate 18 18 18 Blood Pressure Blood Pressure [Left Arm] 194/85 219/89 222/98 Blood Pressure [Right Arm] O2 Sat by Pulse Oximetry 93 L 98 94 L 06/24/21 15:00 06/24/21 16:00 06/24/21 17:00 Temperature 97.4 F L Pulse Rate Pulse Rate [Left Radial] 73 76 64 Respiratory Rate 18 18 18 Blood Pressure Blood Pressure [Left Arm] 216/95 220/105 190/90 Blood Pressure [Right Arm] O2 Sat by Pulse Oximetry 94 L 95 97 06/24/21 18:00 06/24/21 19:00 06/24/21 20:00 Temperature 98.1 F Pulse Rate Pulse Rate [Left Radial] 65 68 71 Respiratory Rate 16 16 20 Blood Pressure Blood Pressure [Left Arm] 191/91 196/91 182/86 Blood Pressure [Right Arm] O2 Sat by Pulse Oximetry 97 95 95 06/24/21 21:00 06/24/21 22:00 06/24/21 23:00 Temperature Pulse Rate Pulse Rate [Left Radial] 66 68 67 Respiratory Rate 20 20 18 Blood Pressure Blood Pressure [Left Arm] 182/81 163/72 144/65 Blood Pressure [Right Arm] O2 Sat by Pulse Oximetry 95 95 99 06/25/21 00:00 06/25/21 01:00 06/25/21 02:00 Temperature 98.0 F Pulse Rate Pulse Rate [Left Radial] 68 68 66 Respiratory Rate 18 18 18 Blood Pressure Blood Pressure [Left Arm] Blood Pressure [Right Arm] 136/63 143/65 90/45 O2 Sat by Pulse Oximetry 99 95 95 06/25/21 03:00 06/25/21 04:00 06/25/21 05:00 Temperature 98.3 F Pulse Rate Pulse Rate [Left Radial] 68 70 73 Respiratory Rate 18 18 18 Blood Pressure Blood Pressure [Left Arm] Blood Pressure [Right Arm] 98/54 104/51 99/50 O2 Sat by Pulse Oximetry 95 94 L 95 06/25/21 06:00 06/25/21 07:00 06/25/21 08:00 Temperature Pulse Rate Pulse Rate [Left Radial] 71 72 72 Respiratory Rate 18 18 18 Blood Pressure Blood Pressure [Left Arm] Blood Pressure [Right Arm] 98/49 106/54 116/55 O2 Sat by Pulse Oximetry 95 96 98 06/25/21 09:00 Temperature 97.7 F Pulse Rate Pulse Rate [Left Radial] 76 Respiratory Rate 18 Blood Pressure Blood Pressure [Left Arm] Blood Pressure [Right Arm] 110/54 O2 Sat by Pulse Oximetry 92 L Labs: Laboratory Last Values WBC 12.4 X10^3/uL (3.6-10.0) H 06/25/21 05:52 RBC 3.71 X10^6/uL (3.5-5.4) 06/25/21 05:52 Hgb 11.2 g/dL (12.0-16.0) L 06/25/21 05:52 Hct 32.8 % (36.0-47.0) L 06/25/21 05:52 MCV 88.3 fL (80.0-100.0) 06/25/21 05:52 MCH 30.3 pg (27.0-34.0) 06/25/21 05:52 MCHC 34.3 g/dL (33.0-35.0) 06/25/21 05:52 RDW 14.8 % (11.6-16.5) 06/25/21 05:52 Plt Count 237 X10^3/uL (150.0-450.0) 06/25/21 05:52 Plt Count Comment Adequate (ADEQUATE) 06/24/21 21:08 MPV 9.5 fL (7.4-11.0) 06/25/21 05:52 Neut % (Auto) 84.0 % (42.0-75.0) H 06/25/21 05:52 Lymph % (Auto) 10.4 % (21.0-51.0) L 06/25/21 05:52 Lyman % (Auto) 5.4 % (0.0-13.0) 06/25/21 05:52 Eos % (Auto) 0.1 % (0.9-2.9) L 06/25/21 05:52 Baso % (Auto) 0.1 % (0.2-1.0) L 06/25/21 05:52 Neut # (Auto) 10.4 x10^3/uL (2.2-4.8) H 06/25/21 05:52 Lymph # (Auto) 1.3 X10^3/uL (1.3-2.9) 06/25/21 05:52 Lyman # (Auto) 0.7 x10^3/uL (0.3-0.8) 06/25/21 05:52 Eos # (Auto) 0.0 x10^3/uL (0.0-0.2) 06/25/21 05:52 Baso # (Auto) 0.0 X10^3/uL (0.0-0.1) 06/25/21 05:52 Absolute Nucleated RBC 0.0 /100WBC 06/25/21 05:52 Total Counted 100 06/24/21 21:08 Neutrophils % (Manual) 91 % (39-76) H 06/24/21 21:08 Lymphocytes % (Manual) 6 % (13-43) L 06/24/21 21:08 Monocytes % (Manual) 3 % (4-9) L 06/24/21 21:08 Plt Morphology Comment Normal (NORMAL) 06/24/21 21:08 RBC Morphology Normal (NORMAL) 06/24/21 21:08 PT 13.3 SECONDS (11.8-14.3) 06/23/21 05:15 INR Target Range - 06/23/21 05:15 INR 1.06 (0.8-1.3) 06/23/21 05:15 APTT 24.8 SECONDS (22.9-36.5) 06/24/21 21:08 PTT Comment - 06/24/21 21:08 Sodium 140 mmol/L (136-145) 06/25/21 05:52 Corrected Sodium 142 mmol/L (136-145) 06/25/21 05:52 Potassium 4.2 mmol/L (3.5-5.1) 06/25/21 05:52 Chloride 105 mmol/L (98-107) 06/25/21 05:52 Carbon Dioxide 27.6 mmol/L (21-32) 06/25/21 05:52 BUN 17 mg/dL (7-18) 06/25/21 05:52 Creatinine 0.99 mg/dL (0.55-1.02) 06/25/21 05:52 Est GFR (MDRD) Af Amer > 60 (>60) 06/25/21 05:52 Est GFR (MDRD) Non-Af 57 (>60) L 06/25/21 05:52 Glucose 164 mg/dL (65-99) H 06/25/21 05:52 Calcium 9.0 mg/dL (8.5-10.1) 06/25/21 05:52 Corrected Calcium 10.0 mg/dL (8.5-10.1) 06/25/21 05:52 Total Bilirubin 0.40 mg/dL (0.2-1.0) 06/25/21 05:52 AST 43 Units/L (15-37) H 06/25/21 05:52 ALT 16 Units/L (12-78) 06/25/21 05:52 Alkaline Phosphatase 72 Units/L (46-116) 06/25/21 05:52 Total Protein 5.8 g/dL (6.4-8.2) L 06/25/21 05:52 Albumin 2.8 g/dL (3.4-5.0) L 06/25/21 05:52 Globulin 3.0 g/dL (2.5-4.5) 06/25/21 05:52 Albumin/Globulin Ratio 0.9 Ratio (1.1-2.1) L 06/25/21 05:52 SARS CoV-2 RNA Rapid JOSE F Negative (NEGATIVE) 06/22/21 15:15 Reason For Visit: THROMBUS RIGHT COMMON FEMORAL VEIN Discharge Date Discharge Date: 06/25/21 Discharge Diagnosis All Active Problems (Updated 06/11/21 @ 09:57 by Christopher Gonzalez) Pain of right hip (Acute) Acute deep vein thrombosis (DVT) of right lower extremity (Acute) Hypertension (Acute) Cellulitis of right leg (Acute) Swelling (Acute) DVT of lower extremity (deep venous thrombosis) (Acute) Hypertension (Acute) Acute respiratory failure due to COVID-19 (Acute) Hypokalemia (Acute) Nausea and vomiting (Active) Chest wall pain (Acute) Skin tear of right forearm without complication (Acute) Contusion of chest wall (Acute) Diverticulitis (Acute) Abdominal pain (Acute) Leg pain, right (Acute) Contusion of multiple sites (Acute) Contusion of rib on right side (Acute) Shoulder sprain (Acute) Contusion of elbow (Acute) Hip sprain (Acute) Skin tear (Acute) Dyspnea (Acute) COVID-19 (Acute) Pneumonia due to COVID-19 virus (Acute) Hypoxia (Acute) CAD (coronary artery disease) (Chronic) Plan of Treatment: Continue with present treatment and follow up plan. Pt is to keep follow up appointment as instructed and take medications as ordered. Discharge Medications Discharge Medications: adhesive tape Allergy (Verified 05/30/21 14:02) codeine Allergy (Verified 05/04/21 14:25) CONTINUE taking the following medications tizanidine [Zanaflex] 4 mg PO BID PRN 06/22/21 [History] New Prescriptions oxycodone-acetaminophen [Percocet] 1 tab PO Q6H PRN #30 tab MDD 6 06/25/21 [Rx] Follow up and Referral Follow Up: Dr. Gonzalez 1 Week Discharge Disposition Assessment: No acute distress noted at discharge. Discharge Disposition: stable Discharge Condition: stable Discharge Plan Discharge Plan Hospital Course: 80 year old female who had presented several weeks ago with deep Venous Thrombosis of the right lower extremity. She failed anticoagulation with Eliquis and presented with extensive swelling. She also has swelling of the left leg with history of stenting of the left iliac vein previously, approximately two years before.Two weeks ago she was taken to the operating Suite where she underwent venogram gram of the right lower extremity showing no deep Venous Thrombosis of the femoral vein or popliteal vein as ultrasound had suggested but instead had severe complete Venous occlusion of the common and external iliac veins on the right side. Question of clot of the left iliac vein with question of fractured stent there. At that time she underwent angiojet thrombectomyof the right iliac vein with balloon angioplasty and subsequent stenting of the right common and external iliac veins. She had been treated with TPA thrombolysis for 24 hours prior to this. She was discharged on PO Eliquis. He was scheduled for intervention of the left iliac vein yesterday but presented earlier in the week complaining of pain the right groin and ultrasound suggested possible nonocclusive thrombus at the distal end of the right iliac stent. She was placed on Heparin and taken to the operating suite yesterday and venogram of the right leg showed no clot with excellent flow through the stents in the right iliac vein. I believe what they thought was clot was the distal end of the stent as it does cross the inguinal ligament on the right side. She underwent venogram of the left leg showing severe narrowing of the external iliac vein on the left inside the previously Placed stent. She went balloon angioplasty and mechanical thrombectomy using the " clot Guy " inside the left iliac vein with excellent results. Post procedure she had elevation of her blood pressure which has been treated with her usual medications including anti-anxiety medications. She will be discharged home on her usual home medications including Eliquis 5 mg BID and Percocet 5 mg tablets one every six hours. Pain. She will follow up with me in my office in one week. Post procedure she has had some difficulty swallowing solids which has been a problem in the past which required EGD and dilatation of the esophagus. She has significant history of gastroesophageal reflux in the past which is treated with po medications When I see her in the office, if this is still present I will plan dilation of esophagus. Patient Disposition: [facility] Condition: Stable Health Concerns: Post Hospitalization: new medications and changes needed to prevent readmission or further decline. Pt educated and given instructions on all concerns. Care Plan Goals: Problem: Pain/Alteration in Comfort Goal: Improve/ Resolve Pain; Achieve Pain Tolerance Instructions: Take pain medications as prescribed. Contact your primary care provider if your pain is unrelieved or worsens. Follow up with primary care provider as directed. Plan of Treatment: Continue with present treatment and follow up plan. Pt is to keep follow up appointment as instructed and take medications as ordered. Assessment: No acute distress noted at discharge. Prescription drug monitoring program results: PDMP was not reviewed Prescriptions: New oxycodone-acetaminophen [Percocet] 5-325 mg tablet 1 tab PO Q6H MDD 6 PRNQty: 30 RF: 0 Continued pramipexole 1 mg tablet 1 mg PO BID PRN (Reason: Restless Leg(S)) RF: 0 alprazolam 1 mg tablet 1 mg PO BID PRN (Reason: Anxiety) RF: 0 potassium chloride 10 mEq tablet extended release 10 meq PO BID RF: 0 clonazepam 1 mg tablet 1 mg PO HS PRN (Reason: Sleep) RF: 0 rosuvastatin 10 mg tablet 10 mg PO DAILY RF: 0 meloxicam [Mobic] 15 mg tablet 15 mg PO DAILY RF: 0 metoprolol succinate 25 mg tablet extended release 24 hr 12.5 mg PO BID RF: 0 Eliquis 5 mg Tablet 5 mg PO BID Qty: 60 RF: 0 tizanidine [Zanaflex] 4 mg Tablet 4 mg PO BID PRNRF: 0 omeprazole 40 mg Capsule,Delayed Release(Dr/Ec) 40 mg PO DAILY RF: 0 hydrocodone-acetaminophen 7.5-325 mg tablet 1 tab PO BID MDD 3 TABS RF: 0 gabapentin 300 mg Capsule 300 mg PO TID RF: 0 Orders to Discharge Patient Discharge Orders: Discharge (Routine); Ordered 06/25/21 Ordered By: Christopher Gonzalez Follow ups/Referrals Follow ups/Referrals: WILLY BREAUX [Primary Care Provider] - 07/01/21 9:30 am Christopher Gonzalez [STAFF PHYSICIAN] - 06/29/21 11:30 am Instructions Instructions: Wound Infection, [id number], How to Change Your Wound Dressing, [id number], Bleeding Precautions When on Anticoagulant Therapy, Adult, Hypertension, Adult, [id number], Deep Vein Thrombosis, Venous Thromboembolism Prevention Stand Alone Forms: Excuse From Work or School, Precautions for COVID19, [facility], Patient Portal, Social Distancing
[2021-06-25 13:35] VITALS: BP 97/46
== END 2021-06-25 13:40 | disposition home health service (06) ==
LOC: MED/SURG
PROVIDERS: ADMIT Surgery; ATTEND Surgery

== ENCOUNTER 2023-06-14 12:15 | Inpatient (IN) ==
--- NOTE | 2023-06-14 12:55 | DR.EXTPAIN ---
HPI Time seen Time Seen by Provider: 06/14/23 12:52 PCP Primary Care Physician: Frannie Holm Complaint/Symptoms Chief Complaint Doctor Comments: 82 y//o female sent to the ER for evaluation by her wound care physician. Has had chronic wounds bilateral lower legs over the past 3 months. Has a distant history of stents in the legs, by Dr. Gonzalez. Scraped her right leg a few weeks ago, was treated with a round of antibiotics. Has been seeing a business employment specialist in [place], started antibiotics 2 days ago. No known fevers or chills. Having increasing pain of the RLE/foot. Denies URI symptoms. No vomiting or diarrhea. Is currently under chemotherapy for breast cancer. Chief Complaint:: Pt has had chronic wounds to bilateral legs and feet for about the past 3 months. Pt has been followed by the wound care clinic in [place] for dressing changes. Pt states that for the past several days the wound to the left foot is looking worse and is more painful. Pt c/o constant sharp pain in bilateral lower extremities. Denies fever. Self Treatment fo Chief Complaint: Pt was treated with full round of antibiotics about 4 weeks ago and was started again on antibiotics 2 days ago. COVID-19 Coronavirus risk:travel/contact w/high risk person: No Has patient experienced Coronavirus symptoms: No Nurses notes reviewed Nurses Notes Review: Yes Source History Provided: Patient Mode of arrival Mode of Arrival: Ambulatory Timing Onset of Chief Complaint: 06/14/23 PMH PMH Past Medical History: Yes Past Medical History: Anxiety, Arthritis, CHF, Coronary Artery Disease, Dyslipidemia, GERD and Hypertension Past Medical History Comment: Breast Cancer, Uterine Cancer, DVT Past Surgical History: Yes Surgical History: Angioplasty/Stents, Hysterectomy and Ortho Surgery Past Surgical History Comment: bilateral tka, bladder tack Family History History of Family Medical Conditions: Yes Family Medical History: Cancer Social History Does patient currently use any type of tobacco product: No Have you used tobacco products in the last 12 months: No Type of Tobacco Use: None Does any household member use tobacco: No Alcohol Use: None Do you use any recreational Drugs:: No Lives With: Alone Lives Where: Home Travel Risk Coronavirus risk:travel/contact w/high risk person: No Has patient experienced Coronavirus symptoms: No Infectious screening In the last 2 months have you had wt loss of >10#?: NO Have you had fever, night sweats or hemotysis?: No Have you traveled outside the country in the last 6 months?: No Isolation: Standard ROS Review of Systems Constitutional: Weakness Eyes: No Symptoms Reported ENTM: No Symptoms Reported Respiratoy: No Symptoms Reported Cardiovascular: No Symptoms Reported Gastrointestinal/Abdominal: No Symptoms Reported Genitourinary: No Symptoms Reported Neurological: No Symptoms Reported Musculoskeletal: See HPI Integumentary: See HPI Hematologic/Lymphatic: No Symptoms Reported All Other Systems: Reviewed and Negative PE Vital Signs Vitals: Vital Signs Temperature 98.8 F Pulse Rate 79 Respiratory Rate 20 Respiratory Rate 18 Blood Pressure 119/58 O2 Sat by Pulse Oximetry 96 General General Appearance: Alert and In No Apparent Distress Eyes Eye exam: PERRL and EOMI ENT ENT Exam: Mucous Membranes Moist Neck Neck Exam: Normal Inspection Respiratory Respiratory Exam: Normal Lung Sounds Bilat; negative Accessory Muscle Use or Respiratory Distress Cardiovascular Cardiovascular Exam: Regular Rate, Normal Rhythm and Normal Heart Sounds Abdominal Exam Abdominal Exam: Normal Bowel Sounds and Soft; negative Tenderness Extremities Extremities Exam: Edema (w/ecchymoses of bilateral lower exts.) Neurological Neurological Exam: Alert, Oriented X3 and CN II-XII Intact; negative Motor Sensory Deficit Skin Skin Exam: Warm and Dry Other Exam Other Exam: Lower exts - RLE with edema, + large avulsion, of proximal lateral leg, 6 x 12 cms, + erythema, + tenderness. LLE - + diffuse erythema, edema, tenderness. COURSE Treatment Treatment: 82 y/o female with chronic bilateral lower extremity wounds of the past few months, sent over for evaluation with possible infection. Seen by the physician to care for wound care in [place], he feels it may be getting infected. Workup initiated. Patient given IV fluids. Patient recently started on Cipro past 2 days, having worsening infection. Will admit for IV antibiotic therapy. Discussed with Dr. Hardy covering for hospital admissions. ROR Labs Reviewed Laboratory Results Reviewed?: Yes 06/14/23 13:17 06/14/23 13:17 Laboratory: WBC 7.0 X10^3/uL (3.6-10.0) 06/14/23 13:17 RBC 3.00 X10^6/uL (3.5-5.4) L 06/14/23 13:17 Hgb 9.3 g/dL (12.0-16.0) L 06/14/23 13:17 Hct 27.2 % (36.0-47.0) L 06/14/23 13:17 MCV 90.7 fL (80.0-100.0) 06/14/23 13:17 MCH 31.1 pg (27.0-34.0) 06/14/23 13:17 MCHC 34.3 g/dL (33.0-35.0) 06/14/23 13:17 RDW 19.6 % (11.6-16.5) H 06/14/23 13:17 Plt Count 329 X10^3/uL (150.0-450.0) 06/14/23 13:17 Plt Count Comment Adequate (ADEQUATE) 06/14/23 13:17 MPV 8.2 fL (7.4-11.0) 06/14/23 13:17 Neut % (Auto) 60.2 % (42.0-75.0) 06/14/23 13:17 Lymph % (Auto) 27.2 % (21.0-51.0) 06/14/23 13:17 [place] % (Auto) 10.2 % (0.0-13.0) 06/14/23 13:17 Eos % (Auto) 1.7 % (0.9-2.9) 06/14/23 13:17 Baso % (Auto) 0.7 % (0.2-1.0) 06/14/23 13:17 Neut # (Auto) 4.2 x10^3/uL (2.2-4.8) 06/14/23 13:17 Lymph # (Auto) 1.9 X10^3/uL (1.3-2.9) 06/14/23 13:17 [place] # (Auto) 0.7 x10^3/uL (0.3-0.8) 06/14/23 13:17 Eos # (Auto) 0.1 x10^3/uL (0.0-0.2) 06/14/23 13:17 Baso # (Auto) 0.1 X10^3/uL (0.0-0.1) 06/14/23 13:17 Absolute Nucleated RBC 0.1 /100WBC 06/14/23 13:17 Total Counted 100 06/14/23 13:17 Neutrophils % (Manual) 46 % (39-76) 06/14/23 13:17 Band Neutrophils % 4 % (0-10) 06/14/23 13:17 Lymphocytes % (Manual) 32 % (13-43) 06/14/23 13:17 Monocytes % (Manual) 11 % (4-9) H 06/14/23 13:17 Eosinophils % (Manual) 2 % (0-6) 06/14/23 13:17 Basophils % (Manual) 2 % (0-1) H 06/14/23 13:17 Metamyelocytes % 2 06/14/23 13:17 Myelocytes % 1 06/14/23 13:17 Plt Morphology Comment Normal (NORMAL) 06/14/23 13:17 RBC Morphology Abnormal (NORMAL) A 06/14/23 13:17 Anisocytosis Slight A 06/14/23 13:17 Sodium 132 mmol/L (136-145) L 06/14/23 13:17 Corrected Sodium TNP 06/14/23 13:17 Potassium 3.7 mmol/L (3.5-5.1) 06/14/23 13:17 Chloride 99 mmol/L (98-107) 06/14/23 13:17 Carbon Dioxide 25.8 mmol/L (21-32) 06/14/23 13:17 BUN 19 mg/dL (7-18) H 06/14/23 13:17 Creatinine 1.63 mg/dL (0.55-1.02) H 06/14/23 13:17 Est GFR (MDRD) Af Amer 39 (>60) L 06/14/23 13:17 Est GFR (MDRD) Non-Af 32 (>60) L 06/14/23 13:17 Glucose 105 mg/dL (65-99) H 06/14/23 13:17 Lactic Acid 0.9 mmol/L (0.4-2.0) 06/14/23 13:17 Calcium 8.8 mg/dL (8.5-10.1) 06/14/23 13:17 Corrected Calcium 9.7 mg/dL (8.5-10.1) 06/14/23 13:17 Total Bilirubin 0.30 mg/dL (0.2-1.0) 06/14/23 13:17 AST 18 Units/L (15-37) 06/14/23 13:17 ALT 20 Units/L (12-78) 06/14/23 13:17 Alkaline Phosphatase 88 Units/L (46-116) 06/14/23 13:17 Total Protein 6.7 g/dL (6.4-8.2) 06/14/23 13:17 Albumin 2.9 g/dL (3.4-5.0) L 06/14/23 13:17 Globulin 3.8 g/dL (2.5-4.5) 06/14/23 13:17 Albumin/Globulin Ratio 0.8 Ratio (1.1-2.1) L 06/14/23 13:17 Lipase 20 Units/L (16-77) 06/14/23 13:17 Mild anemia, hyponatremia Opioid Opioid Risk Tool Age (Jordan box if 16-45): No History of Preadolescent Sexual Abuse: No Total: 0 Total Score Risk Category: Low Risk Copyright: Ty CHAPMAN predicting aberrant behaviors Discharge Plan Diagnosis Discharge Problem: Cellulitis of both lower extremities Discharge Plan Patient Disposition: ADMITTED INPATIENT Condition: Stable
[2023-06-14] MEDS ORDERED: NS 500 ML IV 500 ML IV ONE ×2 (13:08→13:23)
[2023-06-14 13:31] LABS: BASOPHILS # (AUTO) 0.1 X10^3/uL (0.0-0.1); BASOPHILS % (AUTO) 0.7 % (0.2-1.0); EOSINOPHILS # (AUTO) 0.1 x10^3/uL (0.0-0.2); EOSINOPHILS % (AUTO) 1.7 % (0.9-2.9); HEMATOCRIT 27.2 % (36.0-47.0); HEMOGLOBIN 9.3 g/dL (12.0-16.0); LYMPHOCYTES # (AUTO) 1.9 X10^3/uL (1.3-2.9); LYMPHOCYTES % (AUTO) 27.2 % (21.0-51.0); MEAN CORPUSCULAR HEMOGLOBIN 31.1 pg (27.0-34.0); MEAN CORPUSCULAR HGB CONC 34.3 g/dL (33.0-35.0); MEAN CORPUSCULAR VOLUME 90.7 fL (80.0-100.0); MEAN PLATELET VOLUME 8.2 fL (7.4-11.0); MONOCYTES # (AUTO) 0.7 x10^3/uL (0.3-0.8); MONOCYTES % (AUTO) 10.2 % (0.0-13.0); NEUTROPHILS # (AUTO) 4.2 x10^3/uL (2.2-4.8); NEUTROPHILS % (AUTO) 60.2 % (42.0-75.0); PLATELET COUNT 329 X10^3/uL (150.0-450.0); RED CELL DISTRIBUTION WIDTH 19.6 % (11.6-16.5)
[2023-06-14 13:44] LABS: ALANINE AMINOTRANSFERASE 20 Units/L (12-78); ALBUMIN 2.9 g/dL (3.4-5.0); ALKALINE PHOSPHATASE 88 Units/L (46-116); ASPARTATE AMINO TRANSFERASE 18 Units/L (15-37); BLOOD UREA NITROGEN 19 mg/dL (7-18); CALCIUM 8.8 mg/dL (8.5-10.1); CARBON DIOXIDE 25.8 mmol/L (21-32); CHLORIDE 99 mmol/L (98-107); COR CA(FOR HYPOALB) 9.7 mg/dL (8.5-10.1); CREATININE 1.63 mg/dL (0.55-1.02); GLUCOSE 105 mg/dL (65-99); LIPASE 20 Units/L (16-77); POTASSIUM 3.7 mmol/L (3.5-5.1); SODIUM 132 mmol/L (136-145); TOTAL PROTEIN 6.7 g/dL (6.4-8.2); eGFR NON BLACK RACES 32 (>60)
[2023-06-14 13:49] LABS: ANISOCYTOSIS SLIGHT; BAND NEUTROPHILS % 4 % (0-10); BASOPHILS % (MANUAL) 2 % (0-1); METAMYELOCYTES % 2; MYELOCYTES % 1; PLATELET MORPHOLOGY COMMENT NORMAL (NORMAL)
[2023-06-14] MEDS ORDERED: ZOFRAN INJ 4 MG VIAL IVP ONE (15:13)
[2023-06-14] MEDS ORDERED: MORPHINE SULFATE INJ 4 MG IVP ONE (15:13)
[2023-06-14] MEDS ORDERED: MORPHINE SULFATE INJ 4 MG ONE (15:15)
[2023-06-14] MEDS ORDERED: ZOFRAN INJ 4 MG VIAL ONE (15:15)
[2023-06-14] MEDS ORDERED: ZOSYN VIAL 3.375 GRAMS IV ONE (15:47)
[2023-06-14] MEDS ORDERED: NS 100 ML IV 100 ML ONE (15:48)
[2023-06-14] MEDS: ZOSYN VIAL 3.375 GRAMS 3.375 G in NS 100 ML IV 100 ML IV SCH ×2 (15:52→21:05)
[2023-06-14] MEDS ORDERED: ZOFRAN INJ 4 MG VIAL IVP PRN (16:42)
[2023-06-14] MEDS ORDERED: PROVENTIL NEB TX 0.083% 2.5MG/ 3ML NEB PRN (17:38)
[2023-06-14] MEDS: D5 1/2 NS 1,000 ML 1,000 ML IV SCH (17:50)
[2023-06-14] MEDS ORDERED: RESTORIL CAP 15 MG PO PRN (18:32)
[2023-06-14] MEDS: MORPHINE SULFATE INJ 2 MG INJ IVP PRN (20:06)
[2023-06-15] MEDS: MORPHINE SULFATE INJ 2 MG INJ IVP PRN ×3 (00:01→14:02)
[2023-06-15] MEDS ORDERED: NORCO 5/325 MG TAB PO PRN (05:04)
[2023-06-15] MEDS: D5 1/2 NS 1,000 ML 1,000 ML IV SCH ×2 (05:22→19:43)
[2023-06-15] MEDS: ZOSYN VIAL 3.375 GRAMS 3.375 G in NS 100 ML IV 100 ML IV SCH ×3 (05:23→21:19)
[2023-06-15 06:44] LABS: BASOPHILS # (AUTO) 0.1 X10^3/uL (0.0-0.1); BASOPHILS % (AUTO) 1.3 % (0.2-1.0); EOSINOPHILS # (AUTO) 0.2 x10^3/uL (0.0-0.2); EOSINOPHILS % (AUTO) 2.3 % (0.9-2.9); HEMATOCRIT 27.2 % (36.0-47.0); HEMOGLOBIN 9.3 g/dL (12.0-16.0); LYMPHOCYTES # (AUTO) 2.5 X10^3/uL (1.3-2.9); LYMPHOCYTES % (AUTO) 26.4 % (21.0-51.0); MEAN CORPUSCULAR HEMOGLOBIN 31.4 pg (27.0-34.0); MEAN CORPUSCULAR HGB CONC 34.3 g/dL (33.0-35.0); MEAN CORPUSCULAR VOLUME 91.6 fL (80.0-100.0); MEAN PLATELET VOLUME 8.6 fL (7.4-11.0); MONOCYTES % (AUTO) 11.1 % (0.0-13.0); NEUTROPHILS # (AUTO) 5.5 x10^3/uL (2.2-4.8); NEUTROPHILS % (AUTO) 58.9 % (42.0-75.0); PLATELET COUNT 316 X10^3/uL (150.0-450.0); RED BLOOD COUNT 2.97 X10^6/uL (3.5-5.4); RED CELL DISTRIBUTION WIDTH 19.2 % (11.6-16.5)
[2023-06-15 06:55] LABS: ALANINE AMINOTRANSFERASE 16 Units/L (12-78); ALBUMIN 2.5 g/dL (3.4-5.0); ALKALINE PHOSPHATASE 87 Units/L (46-116); ASPARTATE AMINO TRANSFERASE 26 Units/L (15-37); BLOOD UREA NITROGEN 11 mg/dL (7-18); CALCIUM 8.5 mg/dL (8.5-10.1); CARBON DIOXIDE 25.1 mmol/L (21-32); CHLORIDE 104 mmol/L (98-107); COR CA(FOR HYPOALB) 9.7 mg/dL (8.5-10.1); COR NA(FOR HYPERGLY) 137 mmol/L (136-145); CREATININE 1.11 mg/dL (0.55-1.02); GLUCOSE 111 mg/dL (65-99); MAGNESIUM 2.1 mg/dL (2.0-2.9); POTASSIUM 3.8 mmol/L (3.5-5.1); SODIUM 137 mmol/L (136-145); TOTAL PROTEIN 6.2 g/dL (6.4-8.2); eGFR NON BLACK RACES 50 (>60)
[2023-06-15] MEDS ORDERED: CONSULT PHARMACY - POTASSIUM & MAGNESIUM XX SCH (07:00)
[2023-06-15 07:24] LABS: ANISOCYTOSIS SLIGHT; PLATELET MORPHOLOGY COMMENT NORMAL (NORMAL); WHITE BLOOD COUNT 10.5 X10^3/uL (3.6-10.0)
[2023-06-15] MEDS ORDERED: PERCOCET TAB 5/325 MG PO PRN (07:39)
[2023-06-15] MEDS ORDERED: K-DUR TAB 20 MEQ PO SCH (09:00)
[2023-06-15] MEDS: PERCOCET TAB 5/325 MG PO PRN ×2 (10:33→19:28)
[2023-06-15] MEDS: ATARAX TAB 25 MG PO PRN ×2 (11:35→16:56)
--- NOTE | 2023-06-15 20:17 | DR.H&P ---
H&P History & Physical for Day of: H&P Date: 06/15/23 Chief Complaint Chief Complaint: Multiple wounds on legs and feet Allergies Allergies Allergy/AdvReac Type Severity Reaction Status Date / Time codeine Allergy Unknown Verified 06/14/23 12:31 adhesive tape Allergy Verified 06/14/23 12:31 History of Present Illness History of Present Illness: This is a 82-year-old white female who has been seeing wound care in [place], [place] for the last 3 months. She has a history of multiple wounds on her legs and feet, which have been infected. She also has had recent stents placed in her lower extremities by our vascular surgeon, Dr. Gonzalez in the recent past. The patient reports scraping her right leg recently, and the infection has been getting worse. She reports that she took antibiotics 4 weeks ago but none since. Because these areas were looking worse the patient decided come to emergency department for further evaluation and treatment. We thought the patient would benefit from hospital admission and consultation with general surgery for debridement of her wounds. Past Medical History Past Medical History: Anxiety, Arthritis, CHF, Coronary Artery Disease, Dyslipidemia, GERD and Hypertension Additional Medical History: History of coronary artery stenting in the past , cu rrently without symptoms of chest pain or significant shortness of breath Past Surgical History Surgical History: Angioplasty/Stents, Hysterectomy, Ortho Surgery and Other Family History Family Medical History: Cancer Social History Does patient currently use any type of tobacco product: No Have you used tobacco products in the last 12 months: No Type of Tobacco Use: None Does any household member use tobacco: No Alcohol Use: None Drug Use: None Medications Home Medications: Home Medications Medication Instructions Recorded Confirmed Type pramipexole 1 mg tablet 2 mg PO QDAY 09/30/18 06/14/23 History potassium chloride 10 mEq 10 meq PO BID 02/21/20 06/14/23 History tablet,extended release clonazepam 1 mg tablet 1 mg PO HS PRN Sleep 05/04/21 06/14/23 History rosuvastatin 10 mg tablet 10 mg PO HS CHOLESTEROL 05/04/21 06/14/23 History omeprazole 40 mg capsule,delayed 40 mg PO DAILY 05/30/21 06/14/23 History release gabapentin 300 mg capsule 100 mg PO TID 06/10/21 06/14/23 History hydrocodone 7.5 mg-acetaminophen 1 tab PO BID 06/10/21 06/14/23 History 325 mg tablet tizanidine 4 mg tablet (Zanaflex) 2 mg PO BID PRN 06/22/21 06/14/23 History alprazolam 0.5 mg tablet 0.5 mg PO BID PRN 09/12/22 06/14/23 History furosemide 40 mg tablet 40 mg PO QDAY 09/12/22 06/14/23 History lidocaine 5 % topical patch 1 patch transdermal QDAY 09/12/22 06/14/23 History meloxicam 15 mg tablet 15 mg PO QDAY 09/12/22 06/14/23 History metoprolol succinate 25 mg 12.5 mg PO QDAY 09/12/22 06/14/23 History tablet,extended release 24 hr ropinirole 2 mg tablet 2 tab PO QID 09/12/22 06/14/23 History ciprofloxacin HCl 500 mg tablet 500 mg PO BID 06/14/23 06/14/23 History (Cipro) furosemide 20 mg tablet 20 mg PO HS 06/14/23 06/14/23 History Labs 06/15/23 06:00 06/15/23 06:00 Labs: 06/14/23 17:19 Foot - Left Wound Gram Stain - Final 06/14/23 17:19 Foot - Left Wound Culture - Preliminary 06/14/23 17:03 Leg - Right Wound Gram Stain - Final 06/14/23 17:03 Leg - Right Wound Culture - Preliminary 06/14/23 17:03 Leg - Left Wound Gram Stain - Final 06/14/23 17:03 Leg - Left Wound Culture - Preliminary Laboratory WBC 10.5 X10^3/uL (3.6-10.0) H 06/15/23 06:00 RBC 2.97 X10^6/uL (3.5-5.4) L 06/15/23 06:00 Hgb 9.3 g/dL (12.0-16.0) L 06/15/23 06:00 Hct 27.2 % (36.0-47.0) L 06/15/23 06:00 MCV 91.6 fL (80.0-100.0) 06/15/23 06:00 MCH 31.4 pg (27.0-34.0) 06/15/23 06:00 MCHC 34.3 g/dL (33.0-35.0) 06/15/23 06:00 RDW 19.2 % (11.6-16.5) H 06/15/23 06:00 Plt Count 316 X10^3/uL (150.0-450.0) 06/15/23 06:00 Plt Count Comment Adequate (ADEQUATE) 06/15/23 06:00 MPV 8.6 fL (7.4-11.0) 06/15/23 06:00 Neut % (Auto) 58.9 % (42.0-75.0) 06/15/23 06:00 Lymph % (Auto) 26.4 % (21.0-51.0) 06/15/23 06:00 [place] % (Auto) 11.1 % (0.0-13.0) 06/15/23 06:00 Eos % (Auto) 2.3 % (0.9-2.9) 06/15/23 06:00 Baso % (Auto) 1.3 % (0.2-1.0) H 06/15/23 06:00 Neut # (Auto) 5.5 x10^3/uL (2.2-4.8) H 06/15/23 06:00 Lymph # (Auto) 2.5 X10^3/uL (1.3-2.9) 06/15/23 06:00 [place] # (Auto) 1.0 x10^3/uL (0.3-0.8) H 06/15/23 06:00 Eos # (Auto) 0.2 x10^3/uL (0.0-0.2) 06/15/23 06:00 Baso # (Auto) 0.1 X10^3/uL (0.0-0.1) 06/15/23 06:00 Absolute Nucleated RBC 0.3 /100WBC 06/15/23 06:00 Total Counted 100 06/14/23 13:17 Neutrophils % (Manual) 46 % (39-76) 06/14/23 13:17 Band Neutrophils % 4 % (0-10) 06/14/23 13:17 Lymphocytes % (Manual) 32 % (13-43) 06/14/23 13:17 Monocytes % (Manual) 11 % (4-9) H 06/14/23 13:17 Eosinophils % (Manual) 2 % (0-6) 06/14/23 13:17 Basophils % (Manual) 2 % (0-1) H 06/14/23 13:17 Metamyelocytes % 2 06/14/23 13:17 Myelocytes % 1 06/14/23 13:17 Plt Morphology Comment Normal (NORMAL) 06/15/23 06:00 RBC Morphology Abnormal (NORMAL) A 06/15/23 06:00 Anisocytosis Slight A 06/15/23 06:00 Sodium 137 mmol/L (136-145) 06/15/23 06:00 Corrected Sodium 137 mmol/L (136-145) 06/15/23 06:00 Potassium 3.8 mmol/L (3.5-5.1) 06/15/23 06:00 Chloride 104 mmol/L (98-107) 06/15/23 06:00 Carbon Dioxide 25.1 mmol/L (21-32) 06/15/23 06:00 BUN 11 mg/dL (7-18) 06/15/23 06:00 Creatinine 1.11 mg/dL (0.55-1.02) H 06/15/23 06:00 Est GFR (MDRD) Af Amer > 60 (>60) 06/15/23 06:00 Est GFR (MDRD) Non-Af 50 (>60) L 06/15/23 06:00 Glucose 111 mg/dL (65-99) H 06/15/23 06:00 Lactic Acid 0.9 mmol/L (0.4-2.0) 06/14/23 13:17 Calcium 8.5 mg/dL (8.5-10.1) 06/15/23 06:00 Corrected Calcium 9.7 mg/dL (8.5-10.1) 06/15/23 06:00 Magnesium 2.1 mg/dL (2.0-2.9) 06/15/23 06:00 Total Bilirubin 0.30 mg/dL (0.2-1.0) 06/15/23 06:00 AST 26 Units/L (15-37) 06/15/23 06:00 ALT 16 Units/L (12-78) 06/15/23 06:00 Alkaline Phosphatase 87 Units/L (46-116) 06/15/23 06:00 Total Protein 6.2 g/dL (6.4-8.2) L 06/15/23 06:00 Albumin 2.5 g/dL (3.4-5.0) L 06/15/23 06:00 Globulin 3.7 g/dL (2.5-4.5) 06/15/23 06:00 Albumin/Globulin Ratio 0.7 Ratio (1.1-2.1) L 06/15/23 06:00 Lipase 20 Units/L (16-77) 06/14/23 13:17 Review of Systems Constitutional: No Symptoms Reported Eyes: No Symptoms Reported ENT: No Symptoms Reported Respiratory: No Symptoms Reported Cardiovascular: No Symptoms Reported Gastrointestinal: No Symptoms Reported Genitourinary: No Symptoms Reported Musculoskeletal: Leg Pain Skin: No Symptoms Reported Neurological: No Symptoms Reported Physical Exam Vital Signs: Vital Signs Temperature 97.8 F Temperature 97.9 F Pulse Rate [Right Radial] 100 Pulse Rate [Right Radial] 99 Respiratory Rate 20 Respiratory Rate 20 Respiratory Rate 20 Respiratory Rate 18 Respiratory Rate 20 Blood Pressure [Right Arm] 135/77 Blood Pressure [Right Arm] 189/79 O2 Sat by Pulse Oximetry 97 O2 Sat by Pulse Oximetry 96 Oriented: Normal Eyes: Normal Ear: Normal Nose: Normal Throat: Normal Respiratory: Clear Throughout Cardiovascular: Normal : Normal Auscultation: Bowel Sounds: Normal Palpation: Normal Tenderness: Normal Skin: Wound (The patient has multiple wounds/ulcers on her legs and heels and feet.) Musculoskeletal: Normal Psychiatric: Normal Mood Description: Calm Affect: Normal Speech Pattern: Clear and Appropriate Assessment/Plan (1) Cellulitis of both lower extremities: Status: Acute Plan: IV Zosyn (2) Skin tear: Status: Acute (3) Infection, skin, staph: Status: Acute Plan: Consult general surgery for possible debridement of wounds. (4) Hypertension: Qualifiers: Hypertension type: primary hypertension Qualified Code(s): I10 - Essential (primary) hypertension Status: Chronic Plan: Follow daily blood pressures and continue patient on her antihypertensive medication. (5) Cellulitis of right leg: Status: Acute Plan: Follow-up wound cultures and in the meantime continue IV Zosyn. Review H&P Reviewed: Yes Patient was examined?: Yes
[2023-06-15] MEDS ORDERED: KLONOPIN TAB 1 MG PO ONE (21:00)
[2023-06-15] MEDS ORDERED: REQUIP PO ONE (21:00)
[2023-06-16] MEDS: D5 1/2 NS 1,000 ML 1,000 ML IV SCH ×4 (00:05→21:11)
[2023-06-16] MEDS: MORPHINE SULFATE INJ 2 MG INJ IVP PRN ×3 (00:19→19:30)
[2023-06-16] MEDS ORDERED: HIBICLENS WASH EXT ONE (05:09)
[2023-06-16] MEDS: ZOSYN VIAL 3.375 GRAMS 3.375 G in NS 100 ML IV 100 ML IV SCH ×3 (05:11→21:24)
[2023-06-16] MEDS: PERCOCET TAB 5/325 MG PO PRN ×3 (05:38→21:34)
[2023-06-16 06:28] LABS: BASOPHILS # (AUTO) 0.1 X10^3/uL (0.0-0.1); BASOPHILS % (AUTO) 0.7 % (0.2-1.0); EOSINOPHILS # (AUTO) 0.1 x10^3/uL (0.0-0.2); EOSINOPHILS % (AUTO) 1.4 % (0.9-2.9); HEMATOCRIT 27.4 % (36.0-47.0); HEMOGLOBIN 9.5 g/dL (12.0-16.0); LYMPHOCYTES % (AUTO) 23.6 % (21.0-51.0); MEAN CORPUSCULAR HEMOGLOBIN 31.2 pg (27.0-34.0); MEAN CORPUSCULAR HGB CONC 34.5 g/dL (33.0-35.0); MEAN CORPUSCULAR VOLUME 90.4 fL (80.0-100.0); MEAN PLATELET VOLUME 8.5 fL (7.4-11.0); MONOCYTES % (AUTO) 11.5 % (0.0-13.0); NEUTROPHILS # (AUTO) 5.3 x10^3/uL (2.2-4.8); NEUTROPHILS % (AUTO) 62.8 % (42.0-75.0); PLATELET COUNT 362 X10^3/uL (150.0-450.0); RED BLOOD COUNT 3.03 X10^6/uL (3.5-5.4); RED CELL DISTRIBUTION WIDTH 19.3 % (11.6-16.5); WHITE BLOOD COUNT 8.5 X10^3/uL (3.6-10.0)
[2023-06-16 06:41] LABS: ALANINE AMINOTRANSFERASE 18 Units/L (12-78); ALBUMIN 2.4 g/dL (3.4-5.0); ALKALINE PHOSPHATASE 82 Units/L (46-116); ASPARTATE AMINO TRANSFERASE 28 Units/L (15-37); BLOOD UREA NITROGEN 5 mg/dL (7-18); CALCIUM 8.7 mg/dL (8.5-10.1); CARBON DIOXIDE 25.9 mmol/L (21-32); CHLORIDE 105 mmol/L (98-107); CREATININE 0.82 mg/dL (0.55-1.02); GLUCOSE 96 mg/dL (65-99); POTASSIUM 3.6 mmol/L (3.5-5.1); SODIUM 138 mmol/L (136-145); TOTAL PROTEIN 6.1 g/dL (6.4-8.2); eGFR NON BLACK RACES > 60 (>60)
[2023-06-16 08:32] VITALS: BMI 28.9
[2023-06-16] MEDS: XANAX PO PRN (08:55)
[2023-06-16] MEDS ORDERED: POLYMYXIN B SULFATE ONE (09:52)
[2023-06-16] MEDS ORDERED: BETADINE SOLN ONE (09:52)
[2023-06-16] MEDS ORDERED: XYLOCAINE 1 % (PLAIN) ONE (09:52)
[2023-06-16] MEDS ORDERED: ANCEF VIAL 1 GRAM ONE (10:23)
[2023-06-16] MEDS ORDERED: NS 1,000 ML IV 1,000 ML ONE (10:23)
[2023-06-16] MEDS ORDERED: NS 100 ML IV 100 ML ONE (10:24)
[2023-06-16] MEDS ORDERED: XYLOCAINE 2 % (PLAIN) ONE (11:48)
[2023-06-16] MEDS ORDERED: KETAMINE HCL ONE (11:48)
[2023-06-16] MEDS ORDERED: PRECEDEX INJ VIAL IVP ONE (11:57)
[2023-06-16] MEDS ORDERED: EPHEDRINE SULFATE INJ ONE (12:06)
[2023-06-16] MEDS: ATARAX TAB 25 MG PO PRN ×2 (13:43→23:20)
[2023-06-16] MEDS ORDERED: CONSULT PHARMACY - POTASSIUM & MAGNESIUM XX SCH (19:00)
--- NOTE | 2023-06-16 20:19 | PCM.PROG ---
Progress Note Progress Note for Day of Date of Exam: 06/16/23 Subjective Subjective: The patient is resting comfortably this morning. She requested that we get her anxiety medicine and her insomnia medicine restarted today. I told her we would, and that would not be a problem. She is to be going for surgical debridement today per general surgery. She has had multiple wound cultures done, and they are pending at this time. All of the wound cultures on Gram stain have shown gram-positive cocci. She is currently receiving IV Zosyn. We will adjust antibiotics if needed when the culture results are available. Past Medical Family Social History Allergies: Allergies codeine Allergy (Unknown, Verified 06/14/23 12:31) adhesive tape Allergy (Verified 06/14/23 12:31) Review of Systems ROS: No change since H&P Vital Signs and I&O's Vital Signs: Vital Signs Temperature 97.9 F Temperature 97.6 F Temperature 97.6 F Temperature 97.4 F Temperature 97.6 F Temperature 97.4 F Temperature 97.4 F Temperature 97.6 F Temperature 97.9 F Temperature 97.6 F Pulse Rate [Right Radial] 112 Pulse Rate [Right Radial] 103 Pulse Rate [Right Radial] 113 Pulse Rate [Right Radial] 105 Pulse Rate [Right Radial] 113 Pulse Rate [Right Radial] 104 Pulse Rate [Right Radial] 103 Pulse Rate [Right Radial] 105 Pulse Rate [Right Radial] 105 Pulse Rate [Right Radial] 101 Respiratory Rate 20 Respiratory Rate 18 Respiratory Rate 18 Respiratory Rate 18 Respiratory Rate 18 Respiratory Rate 20 Respiratory Rate 20 Respiratory Rate 18 Respiratory Rate 20 Respiratory Rate 20 Respiratory Rate 20 Respiratory Rate 18 Respiratory Rate 16 Respiratory Rate 16 Respiratory Rate 18 Respiratory Rate 18 Blood Pressure [Right Arm] 132/57 Blood Pressure [Right Arm] 122/58 Blood Pressure [Right Arm] 137/63 Blood Pressure [Right Arm] 129/61 Blood Pressure [Right Arm] 137/63 Blood Pressure [Right Arm] 142/66 Blood Pressure [Right Arm] 142/71 Blood Pressure [Right Arm] 143/67 Blood Pressure [Right Arm] 112/56 Blood Pressure [Right Arm] 115/58 O2 Sat by Pulse Oximetry 97 O2 Sat by Pulse Oximetry 95 O2 Sat by Pulse Oximetry 98 O2 Sat by Pulse Oximetry 94 O2 Sat by Pulse Oximetry 98 O2 Sat by Pulse Oximetry 97 O2 Sat by Pulse Oximetry 100 O2 Sat by Pulse Oximetry 98 O2 Sat by Pulse Oximetry 96 O2 Sat by Pulse Oximetry 95 Intake and Output: Intake & Output 06/14/23 06/15/23 06/16/23 06/17/23 11:59 11:59 11:59 11:59 Intake Total 1124 / 1124 2803 / 2803 837 / 837 Output Total 250 / 250 Balance 1124 / 1124 2803 / 2803 587 / 587 Physical Exam Oriented: Normal Eyes: Normal Ear: Normal Nose: Normal Throat: Normal Respiratory: Normal Cardiovascular: Normal : Normal Auscultation: Bowel Sounds: Normal Tenderness: Normal Skin: Wound (The patient has multiple wounds/ulcers on her legs and heels and feet.) Musculoskeletal: Normal Psychiatric: Normal Mood Description: Calm Affect: Normal Speech Pattern: Clear and Appropriate Laboratory and Diagnostics 06/16/23 05:20 06/16/23 05:20 Labs: 06/14/23 13:22 Blood Blood Culture - Preliminary 06/14/23 13:17 Blood Blood Culture - Preliminary 06/14/23 17:03 Leg - Left Wound Gram Stain - Final 06/14/23 17:03 Leg - Left Wound Culture - Preliminary 06/14/23 17:03 Leg - Right Wound Gram Stain - Final 06/14/23 17:03 Leg - Right Wound Culture - Preliminary 06/14/23 17:19 Foot - Left Wound Gram Stain - Final 06/14/23 17:19 Foot - Left Wound Culture - Preliminary Laboratory WBC 8.5 X10^3/uL (3.6-10.0) 06/16/23 05:20 RBC 3.03 X10^6/uL (3.5-5.4) L 06/16/23 05:20 Hgb 9.5 g/dL (12.0-16.0) L 06/16/23 05:20 Hct 27.4 % (36.0-47.0) L 06/16/23 05:20 MCV 90.4 fL (80.0-100.0) 06/16/23 05:20 MCH 31.2 pg (27.0-34.0) 06/16/23 05:20 MCHC 34.5 g/dL (33.0-35.0) 06/16/23 05:20 RDW 19.3 % (11.6-16.5) H 06/16/23 05:20 Plt Count 362 X10^3/uL (150.0-450.0) 06/16/23 05:20 Plt Count Comment Adequate (ADEQUATE) 06/15/23 06:00 MPV 8.5 fL (7.4-11.0) 06/16/23 05:20 Neut % (Auto) 62.8 % (42.0-75.0) 06/16/23 05:20 Lymph % (Auto) 23.6 % (21.0-51.0) 06/16/23 05:20 [place] % (Auto) 11.5 % (0.0-13.0) 06/16/23 05:20 Eos % (Auto) 1.4 % (0.9-2.9) 06/16/23 05:20 Baso % (Auto) 0.7 % (0.2-1.0) 06/16/23 05:20 Neut # (Auto) 5.3 x10^3/uL (2.2-4.8) H 06/16/23 05:20 Lymph # (Auto) 2.0 X10^3/uL (1.3-2.9) 06/16/23 05:20 [place] # (Auto) 1.0 x10^3/uL (0.3-0.8) H 06/16/23 05:20 Eos # (Auto) 0.1 x10^3/uL (0.0-0.2) 06/16/23 05:20 Baso # (Auto) 0.1 X10^3/uL (0.0-0.1) 06/16/23 05:20 Absolute Nucleated RBC 0.1 /100WBC 06/16/23 05:20 Total Counted 100 06/14/23 13:17 Neutrophils % (Manual) 46 % (39-76) 06/14/23 13:17 Band Neutrophils % 4 % (0-10) 06/14/23 13:17 Lymphocytes % (Manual) 32 % (13-43) 06/14/23 13:17 Monocytes % (Manual) 11 % (4-9) H 06/14/23 13:17 Eosinophils % (Manual) 2 % (0-6) 06/14/23 13:17 Basophils % (Manual) 2 % (0-1) H 06/14/23 13:17 Metamyelocytes % 2 06/14/23 13:17 Myelocytes % 1 06/14/23 13:17 Plt Morphology Comment Normal (NORMAL) 06/15/23 06:00 RBC Morphology Abnormal (NORMAL) A 06/15/23 06:00 Anisocytosis Slight A 06/15/23 06:00 Sodium 138 mmol/L (136-145) 06/16/23 05:20 Corrected Sodium TNP 06/16/23 05:20 Potassium 3.6 mmol/L (3.5-5.1) 06/16/23 05:20 Chloride 105 mmol/L (98-107) 06/16/23 05:20 Carbon Dioxide 25.9 mmol/L (21-32) 06/16/23 05:20 BUN 5 mg/dL (7-18) L 06/16/23 05:20 Creatinine 0.82 mg/dL (0.55-1.02) 06/16/23 05:20 Est GFR (MDRD) Af Amer > 60 (>60) 06/16/23 05:20 Est GFR (MDRD) Non-Af > 60 (>60) 06/16/23 05:20 Glucose 96 mg/dL (65-99) 06/16/23 05:20 Lactic Acid 0.9 mmol/L (0.4-2.0) 06/14/23 13:17 Calcium 8.7 mg/dL (8.5-10.1) 06/16/23 05:20 Corrected Calcium 10.0 mg/dL (8.5-10.1) 06/16/23 05:20 Magnesium 2.0 mg/dL (2.0-2.9) 06/16/23 05:20 Total Bilirubin 0.40 mg/dL (0.2-1.0) 06/16/23 05:20 AST 28 Units/L (15-37) 06/16/23 05:20 ALT 18 Units/L (12-78) 06/16/23 05:20 Alkaline Phosphatase 82 Units/L (46-116) 06/16/23 05:20 Total Protein 6.1 g/dL (6.4-8.2) L 06/16/23 05:20 Albumin 2.4 g/dL (3.4-5.0) L 06/16/23 05:20 Globulin 3.7 g/dL (2.5-4.5) 06/16/23 05:20 Albumin/Globulin Ratio 0.6 Ratio (1.1-2.1) L 06/16/23 05:20 Lipase 20 Units/L (16-77) 06/14/23 13:17 Plan (1) Cellulitis of both lower extremities: Status: Acute Plan: IV Zosyn, follow-up wound cultures when available on multiple skin ulcers. (2) Skin tear: Status: Acute (3) Infection, skin, staph: Status: Acute Plan: Consult general surgery for possible debridement of wounds. (4) Hypertension: Status: Chronic Qualifiers: Hypertension type: primary hypertension Qualified Code(s): I10 - Essential (primary) hypertension Plan: Follow daily blood pressures and continue patient on her antihypertensive medication. (5) Cellulitis of right leg: Status: Acute Plan: Follow-up wound cultures and in the meantime continue IV Zosyn. (6) Anxiety disorder: Status: None Plan: Xanax. (7) Insomnia: Status: Acute Plan: Trazodone and Restoril.
[2023-06-16] MEDS: RESTORIL CAP 15 MG PO SCH (20:22)
[2023-06-16] MEDS ORDERED: K-DUR TAB 20 MEQ PO SCH (21:00)
[2023-06-16] MEDS ORDERED: MAALOX or MYLANTA PO PRN (22:30)
[2023-06-17] MEDS: ZOSYN VIAL 3.375 GRAMS 3.375 G in NS 100 ML IV 100 ML IV SCH ×3 (05:06→21:53)
[2023-06-17] MEDS: MORPHINE SULFATE INJ 2 MG INJ IVP PRN ×3 (05:36→15:53)
[2023-06-17 06:23] LABS: BASOPHILS % (AUTO) 0.6 % (0.2-1.0); EOSINOPHILS # (AUTO) 0.2 x10^3/uL (0.0-0.2); EOSINOPHILS % (AUTO) 2.5 % (0.9-2.9); HEMATOCRIT 26.8 % (36.0-47.0); HEMOGLOBIN 9.2 g/dL (12.0-16.0); LYMPHOCYTES # (AUTO) 1.5 X10^3/uL (1.3-2.9); LYMPHOCYTES % (AUTO) 22.7 % (21.0-51.0); MEAN CORPUSCULAR HEMOGLOBIN 30.9 pg (27.0-34.0); MEAN CORPUSCULAR HGB CONC 34.2 g/dL (33.0-35.0); MEAN CORPUSCULAR VOLUME 90.2 fL (80.0-100.0); MEAN PLATELET VOLUME 8.1 fL (7.4-11.0); MONOCYTES # (AUTO) 0.9 x10^3/uL (0.3-0.8); MONOCYTES % (AUTO) 14.3 % (0.0-13.0); NEUTROPHILS # (AUTO) 3.9 x10^3/uL (2.2-4.8); NEUTROPHILS % (AUTO) 59.9 % (42.0-75.0); PLATELET COUNT 330 X10^3/uL (150.0-450.0); RED BLOOD COUNT 2.97 X10^6/uL (3.5-5.4); RED CELL DISTRIBUTION WIDTH 19.2 % (11.6-16.5); WHITE BLOOD COUNT 6.6 X10^3/uL (3.6-10.0)
[2023-06-17 06:35] LABS: ALANINE AMINOTRANSFERASE 17 Units/L (12-78); ALBUMIN 2.2 g/dL (3.4-5.0); ALKALINE PHOSPHATASE 78 Units/L (46-116); ASPARTATE AMINO TRANSFERASE 23 Units/L (15-37); BLOOD UREA NITROGEN 5 mg/dL (7-18); CALCIUM 8.4 mg/dL (8.5-10.1); CARBON DIOXIDE 27.4 mmol/L (21-32); CHLORIDE 107 mmol/L (98-107); COR CA(FOR HYPOALB) 9.8 mg/dL (8.5-10.1); CREATININE 0.84 mg/dL (0.55-1.02); GLUCOSE 97 mg/dL (65-99); POTASSIUM 3.6 mmol/L (3.5-5.1); SODIUM 139 mmol/L (136-145); TOTAL PROTEIN 5.9 g/dL (6.4-8.2); eGFR NON BLACK RACES > 60 (>60)
[2023-06-17] MEDS ORDERED: CONSULT PHARMACY - POTASSIUM & MAGNESIUM XX SCH (07:00)
[2023-06-17] MEDS: ATARAX TAB 25 MG PO PRN ×2 (09:15→15:54)
[2023-06-17] MEDS: NEURONTIN CAP 100 MG PO SCH ×3 (09:18→21:52)
[2023-06-17] MEDS: ELIQUIS PO SCH ×2 (09:19→20:08)
[2023-06-17] MEDS: LASIX PO SCH (09:19)
[2023-06-17] MEDS: MICRO K EXTEN CAP 10 MEQ PO SCH ×2 (09:19→20:07)
[2023-06-17] MEDS: MIRAPEX TAB 1 MG PO SCH (09:21)
[2023-06-17] MEDS: MOBIC TAB 15 MG PO SCH (09:22)
[2023-06-17] MEDS: REQUIP PO SCH ×4 (09:22→20:07)
[2023-06-17] MEDS: TOPROL XL PO SCH (09:22)
[2023-06-17] MEDS: PriLOSEC PO SCH (09:22)
[2023-06-17] MEDS ORDERED: K-DUR TAB 20 MEQ PO SCH (10:00)
[2023-06-17] MEDS: D5 1/2 NS 1,000 ML 1,000 ML IV SCH ×2 (11:18→12:15)
[2023-06-17] MEDS: PERCOCET TAB 5/325 MG PO PRN ×2 (11:47→19:20)
[2023-06-17] MEDS: XANAX PO PRN (19:20)
[2023-06-17] MEDS: RESTORIL CAP 15 MG PO SCH (20:07)
[2023-06-17] MEDS: CRESTOR TAB 10 MG PO SCH (20:07)
[2023-06-18] MEDS: MORPHINE SULFATE INJ 2 MG INJ IVP PRN ×2 (00:25→16:33)
[2023-06-18] MEDS: D5 1/2 NS 1,000 ML 1,000 ML IV SCH ×2 (00:57→12:34)
[2023-06-18] MEDS: PERCOCET TAB 5/325 MG PO PRN ×4 (03:33→19:23)
[2023-06-18] MEDS: NEURONTIN CAP 100 MG PO SCH ×3 (05:04→21:11)
[2023-06-18] MEDS: ZOSYN VIAL 3.375 GRAMS 3.375 G in NS 100 ML IV 100 ML IV SCH ×3 (05:05→21:12)
[2023-06-18 06:18] LABS: BASOPHILS # (AUTO) 0.1 X10^3/uL (0.0-0.1); EOSINOPHILS # (AUTO) 0.3 x10^3/uL (0.0-0.2); EOSINOPHILS % (AUTO) 4.2 % (0.9-2.9); HEMATOCRIT 24.8 % (36.0-47.0); HEMOGLOBIN 8.4 g/dL (12.0-16.0); LYMPHOCYTES # (AUTO) 1.6 X10^3/uL (1.3-2.9); LYMPHOCYTES % (AUTO) 23.1 % (21.0-51.0); MEAN CORPUSCULAR HEMOGLOBIN 30.8 pg (27.0-34.0); MEAN CORPUSCULAR HGB CONC 34.1 g/dL (33.0-35.0); MEAN CORPUSCULAR VOLUME 90.3 fL (80.0-100.0); MEAN PLATELET VOLUME 8.2 fL (7.4-11.0); MONOCYTES # (AUTO) 0.9 x10^3/uL (0.3-0.8); MONOCYTES % (AUTO) 12.2 % (0.0-13.0); NEUTROPHILS # (AUTO) 4.2 x10^3/uL (2.2-4.8); NEUTROPHILS % (AUTO) 59.5 % (42.0-75.0); PLATELET COUNT 309 X10^3/uL (150.0-450.0); RED BLOOD COUNT 2.74 X10^6/uL (3.5-5.4); RED CELL DISTRIBUTION WIDTH 19.4 % (11.6-16.5); WHITE BLOOD COUNT 7.1 X10^3/uL (3.6-10.0)
[2023-06-18 06:28] LABS: ALANINE AMINOTRANSFERASE 14 Units/L (12-78); ALBUMIN 1.9 g/dL (3.4-5.0); ALKALINE PHOSPHATASE 72 Units/L (46-116); ASPARTATE AMINO TRANSFERASE 20 Units/L (15-37); BLOOD UREA NITROGEN 6 mg/dL (7-18); CALCIUM 8.3 mg/dL (8.5-10.1); CARBON DIOXIDE 25.1 mmol/L (21-32); CHLORIDE 105 mmol/L (98-107); CREATININE 0.94 mg/dL (0.55-1.02); GLUCOSE 106 mg/dL (65-99); POTASSIUM 3.9 mmol/L (3.5-5.1); SODIUM 139 mmol/L (136-145); TOTAL PROTEIN 5.4 g/dL (6.4-8.2); eGFR NON BLACK RACES > 60 (>60)
[2023-06-18] MEDS: XANAX PO PRN ×2 (08:00→20:04)
[2023-06-18] MEDS: ATARAX TAB 25 MG PO PRN ×2 (08:00→13:30)
[2023-06-18] MEDS: ELIQUIS PO SCH ×2 (08:11→20:04)
[2023-06-18] MEDS: MICRO K EXTEN CAP 10 MEQ PO SCH ×2 (08:11→20:04)
[2023-06-18] MEDS: MOBIC TAB 15 MG PO SCH (08:11)
[2023-06-18] MEDS: PriLOSEC PO SCH (08:11)
[2023-06-18] MEDS: LASIX PO SCH (08:11)
[2023-06-18] MEDS: MIRAPEX TAB 1 MG PO SCH (08:11)
[2023-06-18] MEDS: TOPROL XL PO SCH (08:12)
[2023-06-18] MEDS: REQUIP PO SCH ×4 (08:12→20:03)
[2023-06-18] MEDS ORDERED: PHARMACY COMMENT IV SCH (13:00)
[2023-06-18] MEDS: VANCOMYCIN IV *PREMIX 1 G/200 ML BAG 1 G/200 ML PIGGYBACK IV SCH (13:26)
--- NOTE | 2023-06-18 19:03 | PCM.PROG ---
Progress Note - Progress Note for Day of Date of Exam: 06/17/23 - Subjective Subjective: IS A 82 YEAR OLD PATIENT OF . SHE IS CURRENTLY INPATIENT STATUS FOR TREATMENT OF BILATERAL LOWER EXTREMITY CELLULITIS. WOUND CULTURES WERE POSITIVE FOR STAPHYLOCOCCUS HAEMOLYTICUS AND GROUP B STREP. SHE IS STATUS POST DEBRIDEMENT OF WOUNDS BY . TODAY, SHE IS ALERT AND ORIENTED, SITTING UP IN BED ON MORNING ROUNDS. SHE COMPLAINS OF GENERALIZED WEAKNESS THIS MORNING, BUT DENIES OTHER COMPLAINTS. ON EXAMINATION, HEART IS REGULAR IN RATE AND RHYTHM. BILATERAL LUNGS ARE NOTED WITH DIMINISHED LUNG SOUNDS THROUGHOUT. ABDOMEN IS ROUND, SOFT, AND NON-TENDER WITH NORMAL BOWEL SOUNDS NOTED IN ALL QUADRANTS. BILATERAL LOWER EXTREMITIES ARE NOTED WITH DRESSINGS. DRESSINGS ARE DRY AND INTACT. HER VITALS THIS MORNING ARE: 98.0-100-18-99%-152/65. LABS WERE OBTAINED. WBC 6.6, RBC 2.97, HGB 9.2, HCT 26.8, PLT COUNT 330, SODIUM 139, POTASSIUM 3.6, CHLORIDE 107, CARBON DIOXIDE 27.4, BUN 5, CREATININE 0.84, GLUCOSE 97, CALCIUM 8.4, TOTAL BILI 0.30, AST 23, ALT 17, ALK PHOS 78, TOTAL PROTEIN 5.9, ALBUMIN 1.9. BLOOD CULTURES ARE PENDING. WE WILL CONTINUE WITH IV FLUIDS, ANTIBIOTICS, AND WOUND CARE TODAY. OTHERWISE, WE WILL FOLLOW-UP WITH AM LABS AND CONTINUE TO MONITOR. TIME SPENT ON CLINICAL ASSESSMENT, REVIEWING LABS AND IMAGING, DECISION MAKING, AND DOCUMENTATION GREATER THAN 45 MINUTES. - Past Medical Family Social History Allergies: Allergies codeine Allergy (Unknown, Verified 06/14/23 12:31) adhesive tape Allergy (Verified 06/14/23 12:31) - Review of Systems ROS: No change since H&P - Vital Signs and I&O's Vital Signs: Vital Signs Temperature 97.6 F Temperature 97.4 F Pulse Rate [Right Radial] 84 Pulse Rate [Right Radial] 91 Respiratory Rate 18 Respiratory Rate 18 Respiratory Rate 18 Respiratory Rate 20 Respiratory Rate 18 Respiratory Rate 20 Blood Pressure [Right Arm] 120/58 Blood Pressure [Right Arm] 132/60 O2 Sat by Pulse Oximetry 96 O2 Sat by Pulse Oximetry 96 Intake and Output: Intake & Output 06/16/23 06/17/23 06/18/23 06/19/23 11:59 11:59 11:59 11:59 Intake Total 2803 / 2803 2486 / 2486 3143 / 3143 1177 / 1177 Output Total 250 / 250 Balance 2803 / 2803 2236 / 2236 3143 / 3143 1177 / 1177 - Physical Exam Oriented: Normal Eyes: Normal Ear: Normal Nose: Normal Throat: Normal Respiratory: Normal Cardiovascular: Normal : Normal Auscultation: Bowel Sounds: Normal Palpation: Normal Tenderness: Normal Skin: Wound (The patient has multiple wounds/ulcers on her legs and heels and feet.) Musculoskeletal: Normal Psychiatric: Normal Mood Description: Calm Affect: Normal Speech Pattern: Clear, Appropriate - Laboratory and Diagnostics Result Diagrams: 06/18/23 05:20 06/18/23 05:20 Labs: 06/16/23 12:14 Leg - Left Wound Culture - Preliminary 06/16/23 12:14 Foot - Left Wound Culture - Preliminary 06/14/23 17:03 Leg - Right Wound Gram Stain - Final 06/14/23 17:03 Leg - Right Wound Culture - Final Strep Agalactiae - (Group B) 06/14/23 17:03 Leg - Left Wound Gram Stain - Final 06/14/23 17:03 Leg - Left Wound Culture - Final Strep Agalactiae - (Group B) 06/14/23 17:19 Foot - Left Wound Gram Stain - Final 06/14/23 17:19 Foot - Left Wound Culture - Final Staphylococcus Haemolyticus 06/14/23 13:22 Blood Blood Culture - Preliminary 06/14/23 13:17 Blood Blood Culture - Preliminary Laboratory WBC 7.1 X10^3/uL (3.6-10.0) 06/18/23 05:20 RBC 2.74 X10^6/uL (3.5-5.4) L 06/18/23 05:20 Hgb 8.4 g/dL (12.0-16.0) L 06/18/23 05:20 Hct 24.8 % (36.0-47.0) L 06/18/23 05:20 MCV 90.3 fL (80.0-100.0) 06/18/23 05:20 MCH 30.8 pg (27.0-34.0) 06/18/23 05:20 MCHC 34.1 g/dL (33.0-35.0) 06/18/23 05:20 RDW 19.4 % (11.6-16.5) H 06/18/23 05:20 Plt Count 309 X10^3/uL (150.0-450.0) 06/18/23 05:20 Plt Count Comment Adequate (ADEQUATE) 06/15/23 06:00 MPV 8.2 fL (7.4-11.0) 06/18/23 05:20 Neut % (Auto) 59.5 % (42.0-75.0) 06/18/23 05:20 Lymph % (Auto) 23.1 % (21.0-51.0) 06/18/23 05:20 [place] % (Auto) 12.2 % (0.0-13.0) 06/18/23 05:20 Eos % (Auto) 4.2 % (0.9-2.9) H 06/18/23 05:20 Baso % (Auto) 1.0 % (0.2-1.0) 06/18/23 05:20 Neut # (Auto) 4.2 x10^3/uL (2.2-4.8) 06/18/23 05:20 Lymph # (Auto) 1.6 X10^3/uL (1.3-2.9) 06/18/23 05:20 [place] # (Auto) 0.9 x10^3/uL (0.3-0.8) H 06/18/23 05:20 Eos # (Auto) 0.3 x10^3/uL (0.0-0.2) H 06/18/23 05:20 Baso # (Auto) 0.1 X10^3/uL (0.0-0.1) 06/18/23 05:20 Absolute Nucleated RBC 0.1 /100WBC 06/18/23 05:20 Total Counted 100 06/14/23 13:17 Neutrophils % (Manual) 46 % (39-76) 06/14/23 13:17 Band Neutrophils % 4 % (0-10) 06/14/23 13:17 Lymphocytes % (Manual) 32 % (13-43) 06/14/23 13:17 Monocytes % (Manual) 11 % (4-9) H 06/14/23 13:17 Eosinophils % (Manual) 2 % (0-6) 06/14/23 13:17 Basophils % (Manual) 2 % (0-1) H 06/14/23 13:17 Metamyelocytes % 2 06/14/23 13:17 Myelocytes % 1 06/14/23 13:17 Plt Morphology Comment Normal (NORMAL) 06/15/23 06:00 RBC Morphology Abnormal (NORMAL) A 06/15/23 06:00 Anisocytosis Slight A 06/15/23 06:00 Sodium 139 mmol/L (136-145) 06/18/23 05:20 Corrected Sodium TNP 06/18/23 05:20 Potassium 3.9 mmol/L (3.5-5.1) 06/18/23 05:20 Chloride 105 mmol/L (98-107) 06/18/23 05:20 Carbon Dioxide 25.1 mmol/L (21-32) 06/18/23 05:20 BUN 6 mg/dL (7-18) L 06/18/23 05:20 Creatinine 0.94 mg/dL (0.55-1.02) 06/18/23 05:20 Est GFR (MDRD) Af Amer > 60 (>60) 06/18/23 05:20 Est GFR (MDRD) Non-Af > 60 (>60) 06/18/23 05:20 Glucose 106 mg/dL (65-99) H 06/18/23 05:20 Lactic Acid 0.9 mmol/L (0.4-2.0) 06/14/23 13:17 Calcium 8.3 mg/dL (8.5-10.1) L 06/18/23 05:20 Corrected Calcium 10.0 mg/dL (8.5-10.1) 06/18/23 05:20 Magnesium 2.0 mg/dL (2.0-2.9) 06/16/23 05:20 Total Bilirubin 0.30 mg/dL (0.2-1.0) 06/18/23 05:20 AST 20 Units/L (15-37) 06/18/23 05:20 ALT 14 Units/L (12-78) 06/18/23 05:20 Alkaline Phosphatase 72 Units/L (46-116) 06/18/23 05:20 Total Protein 5.4 g/dL (6.4-8.2) L 06/18/23 05:20 Albumin 1.9 g/dL (3.4-5.0) L 06/18/23 05:20 Globulin 3.5 g/dL (2.5-4.5) 06/18/23 05:20 Albumin/Globulin Ratio 0.5 Ratio (1.1-2.1) L 06/18/23 05:20 Lipase 20 Units/L (16-77) 06/14/23 13:17 - Plan (1) Cellulitis of both lower extremities Status: Acute Plan: IV Zosyn, follow-up wound cultures when available on multiple skin ulcers. (2) Infection, skin, staph Status: Acute (3) Skin tear Status: Acute (4) Insomnia Status: Chronic Qualifiers: Insomnia type: primary Qualified Code(s): F51.01 - Primary insomnia Plan: Trazodone and Restoril. (5) Hypertension Status: Chronic Qualifiers: Hypertension type: primary hypertension Qualified Code(s): I10 - Essential (primary) hypertension (6) CAD (coronary artery disease) Status: Chronic Qualifiers: Coronary Disease-Associated Artery/Lesion type: unspecified vessel or lesion type [place] vs. transplanted heart: [place] heart Associated angina: without angina Qualified Code(s): I25.10 - Atherosclerotic heart disease of [place] coronary artery without angina pectoris (7) Anxiety disorder Status: Chronic Qualifiers: Anxiety disorder type: generalized anxiety disorder Qualified Code(s): F41.1 - Generalized anxiety disorder Plan: Xanax. (8) Gastroesophageal reflux disease Status: Chronic Qualifiers: Esophagitis presence: esophagitis presence not specified Qualified Code(s): K21.9 - Gastro-esophageal reflux disease without esophagitis
[2023-06-18] MEDS: RESTORIL CAP 15 MG PO SCH (20:04)
[2023-06-18] MEDS: CRESTOR TAB 10 MG PO SCH (20:04)
--- NOTE | 2023-06-18 22:50 | PCM.PROG ---
Progress Note - Progress Note for Day of Date of Exam: 06/18/23 - Subjective Subjective: IS A 82 YEAR OLD PATIENT OF . SHE IS CURRENTLY INPATIENT STATUS FOR TREATMENT OF BILATERAL LOWER EXTREMITY CELLULITIS. WOUND CULTURES WERE POSITIVE FOR STAPHYLOCOCCUS HAEMOLYTICUS AND GROUP B STREP. SHE IS STATUS POST DEBRIDEMENT OF WOUNDS BY . TODAY, SHE IS ALERT AND ORIENTED, SITTING UP IN BED ON MORNING ROUNDS. SHE COMPLAINS OF GENERALIZED WEAKNESS THIS MORNING, BUT DENIES OTHER COMPLAINTS. ON EXAMINATION, HEART IS REGULAR IN RATE AND RHYTHM. BILATERAL LUNGS ARE NOTED WITH DIMINISHED LUNG SOUNDS THROUGHOUT. ABDOMEN IS ROUND, SOFT, AND NON-TENDER WITH NORMAL BOWEL SOUNDS NOTED IN ALL QUADRANTS. BILATERAL LOWER EXTREMITIES ARE NOTED WITH DRESSINGS. DRESSINGS ARE DRY AND INTACT. HER VITALS THIS MORNING ARE: 98.4-82-18-95%-121/59. LABS WERE OBTAINED. WBC 7.1, RBC 2.74, HGB 8.4, HCT 24.8, PLT COUNT 309, SODIUM 139, POTASSIUM 3.9, CHLORIDE 105, BUN 6, CREATININE 0.94, GLUCOSE 106, CALCIUM 8.3, AST 20, ALT 14, ALK PHOS 72, TOTAL PROTEIN 5.4, ALBUMIN 1.9. BLOOD CULTURES ARE PENDING. WE WILL CONTINUE WITH IV FLUIDS, ANTIBIOTICS, AND WOUND CARE TODAY. OTHERWISE, WE WILL FOLLOW-UP WITH AM LABS AND CONTINUE TO MONITOR. TIME SPENT ON CLINICAL ASSESSMENT, REVIEWING LABS AND IMAGING, DECISION MAKING, AND DOCUMENTATION GREATER THAN 45 MINUTES. - Past Medical Family Social History Allergies: Allergies codeine Allergy (Unknown, Verified 06/14/23 12:31) adhesive tape Allergy (Verified 06/14/23 12:31) - Review of Systems ROS: No change since H&P - Vital Signs and I&O's Vital Signs: Vital Signs Temperature 98.1 F Temperature 97.6 F Pulse Rate [Right Radial] 88 Pulse Rate [Right Radial] 84 Respiratory Rate 18 Respiratory Rate 20 Respiratory Rate 18 Respiratory Rate 18 Respiratory Rate 18 Respiratory Rate 18 Blood Pressure [Right Arm] 138/63 Blood Pressure [Right Arm] 120/58 O2 Sat by Pulse Oximetry 96 O2 Sat by Pulse Oximetry 96 Intake and Output: Intake & Output 06/16/23 06/17/23 06/18/23 06/19/23 11:59 11:59 11:59 11:59 Intake Total 2803 / 2803 2486 / 2486 3143 / 3143 1177 / 1177 Output Total 250 / 250 Balance 2803 / 2803 2236 / 2236 3143 / 3143 1177 / 1177 - Physical Exam Oriented: Normal Eyes: Normal Ear: Normal Nose: Normal Throat: Normal Respiratory: Normal Cardiovascular: Normal : Normal Auscultation: Bowel Sounds: Normal Tenderness: Normal Skin: Wound (The patient has multiple wounds/ulcers on her legs and heels and feet.) Musculoskeletal: Normal Psychiatric: Normal Mood Description: Calm Affect: Normal Speech Pattern: Clear, Appropriate - Laboratory and Diagnostics Result Diagrams: 06/18/23 05:20 06/18/23 05:20 Labs: 06/16/23 12:14 Leg - Left Wound Culture - Preliminary 06/16/23 12:14 Foot - Left Wound Culture - Preliminary 06/14/23 17:03 Leg - Right Wound Gram Stain - Final 06/14/23 17:03 Leg - Right Wound Culture - Final Strep Agalactiae - (Group B) 06/14/23 17:03 Leg - Left Wound Gram Stain - Final 06/14/23 17:03 Leg - Left Wound Culture - Final Strep Agalactiae - (Group B) 06/14/23 17:19 Foot - Left Wound Gram Stain - Final 06/14/23 17:19 Foot - Left Wound Culture - Final Staphylococcus Haemolyticus 06/14/23 13:22 Blood Blood Culture - Preliminary 06/14/23 13:17 Blood Blood Culture - Preliminary Laboratory WBC 7.1 X10^3/uL (3.6-10.0) 06/18/23 05:20 RBC 2.74 X10^6/uL (3.5-5.4) L 06/18/23 05:20 Hgb 8.4 g/dL (12.0-16.0) L 06/18/23 05:20 Hct 24.8 % (36.0-47.0) L 06/18/23 05:20 MCV 90.3 fL (80.0-100.0) 06/18/23 05:20 MCH 30.8 pg (27.0-34.0) 06/18/23 05:20 MCHC 34.1 g/dL (33.0-35.0) 06/18/23 05:20 RDW 19.4 % (11.6-16.5) H 06/18/23 05:20 Plt Count 309 X10^3/uL (150.0-450.0) 06/18/23 05:20 Plt Count Comment Adequate (ADEQUATE) 06/15/23 06:00 MPV 8.2 fL (7.4-11.0) 06/18/23 05:20 Neut % (Auto) 59.5 % (42.0-75.0) 06/18/23 05:20 Lymph % (Auto) 23.1 % (21.0-51.0) 06/18/23 05:20 [place] % (Auto) 12.2 % (0.0-13.0) 06/18/23 05:20 Eos % (Auto) 4.2 % (0.9-2.9) H 06/18/23 05:20 Baso % (Auto) 1.0 % (0.2-1.0) 06/18/23 05:20 Neut # (Auto) 4.2 x10^3/uL (2.2-4.8) 06/18/23 05:20 Lymph # (Auto) 1.6 X10^3/uL (1.3-2.9) 06/18/23 05:20 [place] # (Auto) 0.9 x10^3/uL (0.3-0.8) H 06/18/23 05:20 Eos # (Auto) 0.3 x10^3/uL (0.0-0.2) H 06/18/23 05:20 Baso # (Auto) 0.1 X10^3/uL (0.0-0.1) 06/18/23 05:20 Absolute Nucleated RBC 0.1 /100WBC 06/18/23 05:20 Total Counted 100 06/14/23 13:17 Neutrophils % (Manual) 46 % (39-76) 06/14/23 13:17 Band Neutrophils % 4 % (0-10) 06/14/23 13:17 Lymphocytes % (Manual) 32 % (13-43) 06/14/23 13:17 Monocytes % (Manual) 11 % (4-9) H 06/14/23 13:17 Eosinophils % (Manual) 2 % (0-6) 06/14/23 13:17 Basophils % (Manual) 2 % (0-1) H 06/14/23 13:17 Metamyelocytes % 2 06/14/23 13:17 Myelocytes % 1 06/14/23 13:17 Plt Morphology Comment Normal (NORMAL) 06/15/23 06:00 RBC Morphology Abnormal (NORMAL) A 06/15/23 06:00 Anisocytosis Slight A 06/15/23 06:00 Sodium 139 mmol/L (136-145) 06/18/23 05:20 Corrected Sodium TNP 06/18/23 05:20 Potassium 3.9 mmol/L (3.5-5.1) 06/18/23 05:20 Chloride 105 mmol/L (98-107) 06/18/23 05:20 Carbon Dioxide 25.1 mmol/L (21-32) 06/18/23 05:20 BUN 6 mg/dL (7-18) L 06/18/23 05:20 Creatinine 0.94 mg/dL (0.55-1.02) 06/18/23 05:20 Est GFR (MDRD) Af Amer > 60 (>60) 06/18/23 05:20 Est GFR (MDRD) Non-Af > 60 (>60) 06/18/23 05:20 Glucose 106 mg/dL (65-99) H 06/18/23 05:20 Lactic Acid 0.9 mmol/L (0.4-2.0) 06/14/23 13:17 Calcium 8.3 mg/dL (8.5-10.1) L 06/18/23 05:20 Corrected Calcium 10.0 mg/dL (8.5-10.1) 06/18/23 05:20 Magnesium 2.0 mg/dL (2.0-2.9) 06/16/23 05:20 Total Bilirubin 0.30 mg/dL (0.2-1.0) 06/18/23 05:20 AST 20 Units/L (15-37) 06/18/23 05:20 ALT 14 Units/L (12-78) 06/18/23 05:20 Alkaline Phosphatase 72 Units/L (46-116) 06/18/23 05:20 Total Protein 5.4 g/dL (6.4-8.2) L 06/18/23 05:20 Albumin 1.9 g/dL (3.4-5.0) L 06/18/23 05:20 Globulin 3.5 g/dL (2.5-4.5) 06/18/23 05:20 Albumin/Globulin Ratio 0.5 Ratio (1.1-2.1) L 06/18/23 05:20 Lipase 20 Units/L (16-77) 06/14/23 13:17 - Plan (1) Cellulitis of both lower extremities Status: Acute Plan: IV Zosyn, follow-up wound cultures when available on multiple skin ulcers. (2) Infection, skin, staph Status: Acute Plan: Consult general surgery for possible debridement of wounds. (3) Skin tear Status: Acute (4) Insomnia Status: Chronic Qualifiers: Insomnia type: primary Qualified Code(s): F51.01 - Primary insomnia Plan: Trazodone and Restoril. (5) Hypertension Status: Chronic Qualifiers: Hypertension type: primary hypertension Qualified Code(s): I10 - Essential (primary) hypertension (6) CAD (coronary artery disease) Status: Chronic Qualifiers: Coronary Disease-Associated Artery/Lesion type: unspecified vessel or lesion type [place] vs. transplanted heart: [place] heart Associated angina: without angina Qualified Code(s): I25.10 - Atherosclerotic heart disease of [place] coronary artery without angina pectoris (7) Anxiety disorder Status: Chronic Qualifiers: Anxiety disorder type: generalized anxiety disorder Qualified Code(s): F41.1 - Generalized anxiety disorder Plan: Xanax. (8) Gastroesophageal reflux disease Status: Chronic Qualifiers: Esophagitis presence: esophagitis presence not specified Qualified Code(s): K21.9 - Gastro-esophageal reflux disease without esophagitis
[2023-06-19] MEDS: D5 1/2 NS 1,000 ML 1,000 ML IV SCH ×3 (01:33→13:59)
[2023-06-19] MEDS: MORPHINE SULFATE INJ 2 MG INJ IVP PRN (02:26)
[2023-06-19] MEDS: PERCOCET TAB 5/325 MG PO PRN ×3 (04:50→19:11)
[2023-06-19] MEDS: NEURONTIN CAP 100 MG PO SCH ×3 (05:10→21:01)
[2023-06-19] MEDS: ZOSYN VIAL 3.375 GRAMS 3.375 G in NS 100 ML IV 100 ML IV SCH ×5 (05:11→21:01)
[2023-06-19 06:45] LABS: BASOPHILS # (AUTO) 0.1 X10^3/uL (0.0-0.1); BASOPHILS % (AUTO) 0.8 % (0.2-1.0); EOSINOPHILS # (AUTO) 0.4 x10^3/uL (0.0-0.2); EOSINOPHILS % (AUTO) 3.2 % (0.9-2.9); HEMATOCRIT 31.8 % (36.0-47.0); HEMOGLOBIN 10.7 g/dL (12.0-16.0); LYMPHOCYTES # (AUTO) 2.1 X10^3/uL (1.3-2.9); LYMPHOCYTES % (AUTO) 18.9 % (21.0-51.0); MEAN CORPUSCULAR HEMOGLOBIN 30.4 pg (27.0-34.0); MEAN CORPUSCULAR HGB CONC 33.6 g/dL (33.0-35.0); MEAN CORPUSCULAR VOLUME 90.6 fL (80.0-100.0); MEAN PLATELET VOLUME 8.5 fL (7.4-11.0); MONOCYTES # (AUTO) 0.8 x10^3/uL (0.3-0.8); MONOCYTES % (AUTO) 6.9 % (0.0-13.0); NEUTROPHILS # (AUTO) 7.7 x10^3/uL (2.2-4.8); NEUTROPHILS % (AUTO) 70.2 % (42.0-75.0); PLATELET COUNT 350 X10^3/uL (150.0-450.0); RED BLOOD COUNT 3.52 X10^6/uL (3.5-5.4); RED CELL DISTRIBUTION WIDTH 19.5 % (11.6-16.5)
[2023-06-19 07:12] LABS: ALANINE AMINOTRANSFERASE 16 Units/L (12-78); ALBUMIN 2.2 g/dL (3.4-5.0); ALKALINE PHOSPHATASE 90 Units/L (46-116); ASPARTATE AMINO TRANSFERASE 40 Units/L (15-37); BLOOD UREA NITROGEN 9 mg/dL (7-18); CALCIUM 8.6 mg/dL (8.5-10.1); CARBON DIOXIDE 20.9 mmol/L (21-32); CHLORIDE 106 mmol/L (98-107); CREATININE 0.97 mg/dL (0.55-1.02); GLUCOSE 84 mg/dL (65-99); POTASSIUM 4.6 mmol/L (3.5-5.1); SODIUM 138 mmol/L (136-145); TOTAL PROTEIN 6.4 g/dL (6.4-8.2); eGFR NON BLACK RACES 58 (>60)
[2023-06-19] MEDS: LASIX PO SCH (08:09)
[2023-06-19] MEDS: PriLOSEC PO SCH (08:09)
[2023-06-19] MEDS: REQUIP PO SCH ×4 (08:10→20:08)
[2023-06-19] MEDS: MIRAPEX TAB 1 MG PO SCH (08:10)
[2023-06-19] MEDS: TOPROL XL PO SCH (08:11)
[2023-06-19] MEDS: ELIQUIS PO SCH ×2 (08:12→20:08)
[2023-06-19] MEDS: MICRO K EXTEN CAP 10 MEQ PO SCH ×2 (08:12→20:08)
[2023-06-19] MEDS: MOBIC TAB 15 MG PO SCH (08:12)
[2023-06-19 15:02] LABS: CREATININE 1.17 mg/dL (0.55-1.02); VANCOMYCIN,TROUGH 4.9 ug/mL (15-20)
[2023-06-19] MEDS: VANCOMYCIN IV *PREMIX 1 G/200 ML BAG 1 G/200 ML PIGGYBACK IV SCH (15:24)
[2023-06-19] MEDS: VANCOMYCIN IV *PREMIX 750 mg/150 ML BAG 750 MG/150 ML PIGGYBACK IV SCH ×2 (15:25→20:09)
[2023-06-19] MEDS: CRESTOR TAB 10 MG PO SCH (20:08)
[2023-06-19] MEDS: RESTORIL CAP 15 MG PO SCH (20:09)
--- NOTE | 2023-06-19 21:02 | PCM.PROG ---
Progress Note Progress Note for Day of Date of Exam: 06/19/23 Subjective Subjective: The patient is resting comfortably this morning. Her wound culture has grown out of Streptococcus hemolyticus, Staphylococcus epidermidis, and Streptococcus agalactiae. She is currently receiving IV Zosyn and vancomycin. She is improving clinically, so we will continue her current IV antibiotics. Past Medical Family Social History Allergies: Allergies codeine Allergy (Unknown, Verified 06/14/23 12:31) adhesive tape Allergy (Verified 06/14/23 12:31) Review of Systems ROS: No change since H&P Vital Signs and I&O's Vital Signs: Vital Signs Temperature 98.4 F Temperature 98.3 F Pulse Rate [Right Radial] 104 Pulse Rate [Right Radial] 92 Pulse Rate 91 Respiratory Rate 19 Respiratory Rate 18 Respiratory Rate 20 Blood Pressure [Right Arm] 135/67 Blood Pressure [Right Arm] 136/62 O2 Sat by Pulse Oximetry 96 O2 Sat by Pulse Oximetry 95 O2 Sat by Pulse Oximetry 95 Intake and Output: Intake & Output 06/17/23 06/18/23 06/19/23 06/20/23 11:59 11:59 11:59 11:59 Intake Total 2486 / 2486 3143 / 3143 3126 / 3126 360 / 360 Output Total 250 / 250 Balance 2236 / 2236 3143 / 3143 3126 / 3126 360 / 360 Physical Exam Oriented: Normal Eyes: Normal Ear: Normal Nose: Normal Throat: Normal Respiratory: Normal Cardiovascular: Normal : Normal Auscultation: Bowel Sounds: Normal Tenderness: Normal Skin: Wound (The patient has multiple wounds/ulcers on her legs and heels and feet.) Musculoskeletal: Normal Psychiatric: Normal Mood Description: Calm Affect: Normal Speech Pattern: Clear and Appropriate Laboratory and Diagnostics 06/19/23 05:23 06/19/23 14:25 Labs: 06/14/23 13:22 Blood Blood Culture - Final 06/14/23 13:17 Blood Blood Culture - Final 06/16/23 12:14 Leg - Left Wound Culture - Final 06/16/23 12:14 Foot - Left Wound Culture - Final Staphylococcus Epidermidis 06/14/23 17:03 Leg - Right Wound Gram Stain - Final 06/14/23 17:03 Leg - Right Wound Culture - Final Strep Agalactiae - (Group B) 06/14/23 17:03 Leg - Left Wound Gram Stain - Final 06/14/23 17:03 Leg - Left Wound Culture - Final Strep Agalactiae - (Group B) 06/14/23 17:19 Foot - Left Wound Gram Stain - Final 06/14/23 17:19 Foot - Left Wound Culture - Final Staphylococcus Haemolyticus Laboratory WBC 11.0 X10^3/uL (3.6-10.0) H 06/19/23 05:23 RBC 3.52 X10^6/uL (3.5-5.4) 06/19/23 05:23 Hgb 10.7 g/dL (12.0-16.0) L D 06/19/23 05:23 Hct 31.8 % (36.0-47.0) L 06/19/23 05:23 MCV 90.6 fL (80.0-100.0) 06/19/23 05:23 MCH 30.4 pg (27.0-34.0) 06/19/23 05:23 MCHC 33.6 g/dL (33.0-35.0) 06/19/23 05:23 RDW 19.5 % (11.6-16.5) H 06/19/23 05:23 Plt Count 350 X10^3/uL (150.0-450.0) 06/19/23 05:23 Plt Count Comment Adequate (ADEQUATE) 06/15/23 06:00 MPV 8.5 fL (7.4-11.0) 06/19/23 05:23 Neut % (Auto) 70.2 % (42.0-75.0) 06/19/23 05:23 Lymph % (Auto) 18.9 % (21.0-51.0) L 06/19/23 05:23 [place] % (Auto) 6.9 % (0.0-13.0) 06/19/23 05:23 Eos % (Auto) 3.2 % (0.9-2.9) H 06/19/23 05:23 Baso % (Auto) 0.8 % (0.2-1.0) 06/19/23 05:23 Neut # (Auto) 7.7 x10^3/uL (2.2-4.8) H 06/19/23 05:23 Lymph # (Auto) 2.1 X10^3/uL (1.3-2.9) 06/19/23 05:23 [place] # (Auto) 0.8 x10^3/uL (0.3-0.8) 06/19/23 05:23 Eos # (Auto) 0.4 x10^3/uL (0.0-0.2) H 06/19/23 05:23 Baso # (Auto) 0.1 X10^3/uL (0.0-0.1) 06/19/23 05:23 Absolute Nucleated RBC 0.1 /100WBC 06/19/23 05:23 Total Counted 100 06/14/23 13:17 Neutrophils % (Manual) 46 % (39-76) 06/14/23 13:17 Band Neutrophils % 4 % (0-10) 06/14/23 13:17 Lymphocytes % (Manual) 32 % (13-43) 06/14/23 13:17 Monocytes % (Manual) 11 % (4-9) H 06/14/23 13:17 Eosinophils % (Manual) 2 % (0-6) 06/14/23 13:17 Basophils % (Manual) 2 % (0-1) H 06/14/23 13:17 Metamyelocytes % 2 06/14/23 13:17 Myelocytes % 1 06/14/23 13:17 Plt Morphology Comment Normal (NORMAL) 06/15/23 06:00 RBC Morphology Abnormal (NORMAL) A 06/15/23 06:00 Anisocytosis Slight A 06/15/23 06:00 Sodium 138 mmol/L (136-145) 06/19/23 05:23 Corrected Sodium TNP 06/19/23 05:23 Potassium 4.6 mmol/L (3.5-5.1) 06/19/23 05:23 Chloride 106 mmol/L (98-107) 06/19/23 05:23 Carbon Dioxide 20.9 mmol/L (21-32) L 06/19/23 05:23 BUN 9 mg/dL (7-18) 06/19/23 05:23 Creatinine 1.17 mg/dL (0.55-1.02) H 06/19/23 14:25 Est GFR (MDRD) Af Amer > 60 (>60) 06/19/23 05:23 Est GFR (MDRD) Non-Af 58 (>60) L 06/19/23 05:23 Glucose 84 mg/dL (65-99) 06/19/23 05:23 Lactic Acid 0.9 mmol/L (0.4-2.0) 06/14/23 13:17 Calcium 8.6 mg/dL (8.5-10.1) 06/19/23 05:23 Corrected Calcium 10.0 mg/dL (8.5-10.1) 06/19/23 05:23 Magnesium 2.0 mg/dL (2.0-2.9) 06/16/23 05:20 Total Bilirubin 0.40 mg/dL (0.2-1.0) 06/19/23 05:23 AST 40 Units/L (15-37) H 06/19/23 05:23 ALT 16 Units/L (12-78) 06/19/23 05:23 Alkaline Phosphatase 90 Units/L (46-116) 06/19/23 05:23 Total Protein 6.4 g/dL (6.4-8.2) 06/19/23 05:23 Albumin 2.2 g/dL (3.4-5.0) L 06/19/23 05:23 Globulin 4.2 g/dL (2.5-4.5) 06/19/23 05:23 Albumin/Globulin Ratio 0.5 Ratio (1.1-2.1) L 06/19/23 05:23 Lipase 20 Units/L (16-77) 06/14/23 13:17 Vancomycin Trough 4.9 ug/mL (15-20) L 06/19/23 14:25 Plan (1) Cellulitis of both lower extremities: Status: Acute Plan: IV Zosyn and IV vancomycin. (2) Infection, skin, staph: Status: Acute Plan: Continue IV antibiotics. (3) Skin tear: Status: Acute (4) Insomnia: Status: Chronic Qualifiers: Insomnia type: primary Qualified Code(s): F51.01 - Primary insomnia Plan: Trazodone and Restoril. (5) Hypertension: Status: Chronic Qualifiers: Hypertension type: primary hypertension Qualified Code(s): I10 - Essential (primary) hypertension (6) CAD (coronary artery disease): Status: Chronic Qualifiers: Coronary Disease-Associated Artery/Lesion type: unspecified vessel or lesion type [place] vs. transplanted heart: [place] heart Associated angina: without angina Qualified Code(s): I25.10 - Atherosclerotic heart disease of [place] coronary artery without angina pectoris (7) Anxiety disorder: Status: Chronic Qualifiers: Anxiety disorder type: generalized anxiety disorder Qualified Code(s): F41.1 - Generalized anxiety disorder Plan: Xanax. (8) Gastroesophageal reflux disease: Status: Chronic Qualifiers: Esophagitis presence: esophagitis presence not specified Qualified Code(s): K21.9 - Gastro-esophageal reflux disease without esophagitis
[2023-06-20] MEDS: PERCOCET TAB 5/325 MG PO PRN ×5 (00:13→21:22)
[2023-06-20] MEDS: D5 1/2 NS 1,000 ML 1,000 ML IV SCH ×2 (05:00→17:43)
[2023-06-20] MEDS: NEURONTIN CAP 100 MG PO SCH ×3 (05:01→21:38)
[2023-06-20] MEDS: ZOSYN VIAL 3.375 GRAMS 3.375 G in NS 100 ML IV 100 ML IV SCH ×3 (05:01→21:20)
[2023-06-20 06:37] LABS: ALANINE AMINOTRANSFERASE 12 Units/L (12-78); ALBUMIN 1.9 g/dL (3.4-5.0); ALKALINE PHOSPHATASE 76 Units/L (46-116); ASPARTATE AMINO TRANSFERASE 14 Units/L (15-37); BLOOD UREA NITROGEN 7 mg/dL (7-18); CALCIUM 8.2 mg/dL (8.5-10.1); CARBON DIOXIDE 25.1 mmol/L (21-32); CHLORIDE 108 mmol/L (98-107); COR CA(FOR HYPOALB) 9.9 mg/dL (8.5-10.1); CREATININE 0.88 mg/dL (0.55-1.02); GLUCOSE 93 mg/dL (65-99); POTASSIUM 3.9 mmol/L (3.5-5.1); SODIUM 139 mmol/L (136-145); TOTAL PROTEIN 5.5 g/dL (6.4-8.2); eGFR NON BLACK RACES > 60 (>60)
[2023-06-20 06:38] LABS: BASOPHILS # (AUTO) 0.1 X10^3/uL (0.0-0.1); BASOPHILS % (AUTO) 0.9 % (0.2-1.0); EOSINOPHILS # (AUTO) 0.3 x10^3/uL (0.0-0.2); EOSINOPHILS % (AUTO) 3.3 % (0.9-2.9); HEMATOCRIT 24.4 % (36.0-47.0); HEMOGLOBIN 8.3 g/dL (12.0-16.0); LYMPHOCYTES # (AUTO) 1.9 X10^3/uL (1.3-2.9); LYMPHOCYTES % (AUTO) 22.9 % (21.0-51.0); MEAN CORPUSCULAR HEMOGLOBIN 30.7 pg (27.0-34.0); MEAN CORPUSCULAR HGB CONC 34.2 g/dL (33.0-35.0); MEAN CORPUSCULAR VOLUME 89.8 fL (80.0-100.0); MEAN PLATELET VOLUME 8.2 fL (7.4-11.0); MONOCYTES # (AUTO) 0.8 x10^3/uL (0.3-0.8); MONOCYTES % (AUTO) 9.3 % (0.0-13.0); NEUTROPHILS # (AUTO) 5.3 x10^3/uL (2.2-4.8); NEUTROPHILS % (AUTO) 63.6 % (42.0-75.0); PLATELET COUNT 298 X10^3/uL (150.0-450.0); RED BLOOD COUNT 2.71 X10^6/uL (3.5-5.4); RED CELL DISTRIBUTION WIDTH 19.4 % (11.6-16.5); WHITE BLOOD COUNT 8.3 X10^3/uL (3.6-10.0)
[2023-06-20] MEDS: ELIQUIS PO SCH ×2 (08:51→21:20)
[2023-06-20] MEDS: VANCOMYCIN IV *PREMIX 750 mg/150 ML BAG 750 MG/150 ML PIGGYBACK IV SCH ×2 (08:51→21:18)
[2023-06-20] MEDS: TOPROL XL PO SCH (08:51)
[2023-06-20] MEDS: MOBIC TAB 15 MG PO SCH (08:52)
[2023-06-20] MEDS: MICRO K EXTEN CAP 10 MEQ PO SCH ×2 (08:52→21:19)
[2023-06-20] MEDS: LASIX PO SCH (08:52)
[2023-06-20] MEDS: MIRAPEX TAB 1 MG PO SCH (08:53)
[2023-06-20] MEDS: REQUIP PO SCH ×4 (08:53→21:20)
[2023-06-20] MEDS: PriLOSEC PO SCH (08:53)
[2023-06-20] MEDS: MORPHINE SULFATE INJ 2 MG INJ IVP PRN (10:35)
[2023-06-20] MEDS ORDERED: CONSULT PHARMACY - POTASSIUM & MAGNESIUM XX SCH (13:00)
[2023-06-20] MEDS: MAG-OX TAB PO SCH ×2 (13:52→18:01)
[2023-06-20] MEDS ORDERED: PHARMACY COMMENT IV ONE (20:30)
[2023-06-20 20:59] LABS: CREATININE 0.91 mg/dL (0.55-1.02); VANCOMYCIN,TROUGH 16.1 ug/mL (15-20)
[2023-06-20] MEDS ORDERED: XANAX PO PRN (21:03)
[2023-06-20] MEDS: RESTORIL CAP 15 MG PO SCH (21:19)
[2023-06-20] MEDS: CRESTOR TAB 10 MG PO SCH (21:20)
[2023-06-20] MEDS: XANAX PO PRN (21:38)
[2023-06-20] MEDS: ZANAFLEX PO PRN (21:38)
[2023-06-20] MEDS: PROTONIX INJ 40 MG VIAL IVP SCH (21:38)
[2023-06-20] MEDS ORDERED: NEURONTIN CAP 300 MG PO SCH (22:00)
[2023-06-21] MEDS: MORPHINE SULFATE INJ 2 MG INJ IVP PRN (01:11)
[2023-06-21 04:16] VITALS: O2SAT 94
[2023-06-21] MEDS: D5 1/2 NS 1,000 ML 1,000 ML IV SCH (05:05)
[2023-06-21] MEDS: NEURONTIN CAP 100 MG PO SCH ×2 (05:05→13:59)
[2023-06-21] MEDS: ZOSYN VIAL 3.375 GRAMS 3.375 G in NS 100 ML IV 100 ML IV SCH ×2 (05:06→13:59)
[2023-06-21] MEDS: ZANAFLEX PO PRN (06:05)
[2023-06-21] MEDS: PERCOCET TAB 5/325 MG PO PRN ×2 (06:07→13:59)
[2023-06-21 06:41] LABS: BASOPHILS # (AUTO) 0.1 X10^3/uL (0.0-0.1); EOSINOPHILS # (AUTO) 0.3 x10^3/uL (0.0-0.2); EOSINOPHILS % (AUTO) 3.4 % (0.9-2.9); HEMATOCRIT 25.4 % (36.0-47.0); HEMOGLOBIN 8.6 g/dL (12.0-16.0); LYMPHOCYTES # (AUTO) 2.2 X10^3/uL (1.3-2.9); LYMPHOCYTES % (AUTO) 24.7 % (21.0-51.0); MEAN CORPUSCULAR HGB CONC 33.9 g/dL (33.0-35.0); MEAN CORPUSCULAR VOLUME 88.7 fL (80.0-100.0); MEAN PLATELET VOLUME 8.4 fL (7.4-11.0); MONOCYTES # (AUTO) 0.8 x10^3/uL (0.3-0.8); MONOCYTES % (AUTO) 8.7 % (0.0-13.0); NEUTROPHILS # (AUTO) 5.5 x10^3/uL (2.2-4.8); NEUTROPHILS % (AUTO) 62.2 % (42.0-75.0); PLATELET COUNT 307 X10^3/uL (150.0-450.0); RED BLOOD COUNT 2.86 X10^6/uL (3.5-5.4); RED CELL DISTRIBUTION WIDTH 19.2 % (11.6-16.5); WHITE BLOOD COUNT 8.8 X10^3/uL (3.6-10.0)
[2023-06-21] MEDS ORDERED: CONSULT PHARMACY - POTASSIUM & MAGNESIUM XX SCH ×2 (07:00→08:00)
[2023-06-21 07:16] LABS: ALANINE AMINOTRANSFERASE 8 Units/L (12-78); ALBUMIN 1.9 g/dL (3.4-5.0); ALKALINE PHOSPHATASE 78 Units/L (46-116); ASPARTATE AMINO TRANSFERASE 18 Units/L (15-37); BLOOD UREA NITROGEN 8 mg/dL (7-18); CALCIUM 8.4 mg/dL (8.5-10.1); CARBON DIOXIDE 22.3 mmol/L (21-32); CHLORIDE 104 mmol/L (98-107); COR CA(FOR HYPOALB) 10.1 mg/dL (8.5-10.1); CREATININE 0.89 mg/dL (0.55-1.02); GLUCOSE 94 mg/dL (65-99); MAGNESIUM 1.8 mg/dL (2.0-2.9); POTASSIUM 3.8 mmol/L (3.5-5.1); SODIUM 136 mmol/L (136-145); TOTAL PROTEIN 5.9 g/dL (6.4-8.2); eGFR NON BLACK RACES > 60 (>60)
[2023-06-21] MEDS ORDERED: D5 1/2 NS 1,000 ML 1,000 ML with MAGNESIUM SULFATE 50% INJ VIAL 1 G IV SCH ×2 (08:00)
[2023-06-21] MEDS ORDERED: TOPROL XL PO SCH (09:00)
[2023-06-21] MEDS ORDERED: MIRAPEX TAB 1 MG PO SCH (09:00)
[2023-06-21] MEDS: PROTONIX INJ 40 MG VIAL IVP SCH (10:26)
[2023-06-21] MEDS: REQUIP PO SCH ×3 (10:27→16:50)
[2023-06-21] MEDS: ELIQUIS PO SCH (10:27)
[2023-06-21] MEDS: TOPROL XL PO SCH (10:27)
[2023-06-21] MEDS: PriLOSEC PO SCH (10:27)
[2023-06-21] MEDS: MICRO K EXTEN CAP 10 MEQ PO SCH (10:27)
[2023-06-21] MEDS: VANCOMYCIN IV *PREMIX 750 mg/150 ML BAG 750 MG/150 ML PIGGYBACK IV SCH (10:28)
[2023-06-21] MEDS: MIRAPEX TAB 1 MG PO SCH (10:28)
[2023-06-21] MEDS: MOBIC TAB 15 MG PO SCH (10:28)
[2023-06-21] MEDS: LASIX PO SCH (10:28)
[2023-06-21 12:14] VITALS: BP 168/72; PULSE 85; TEMP 98.3
[2023-06-21] MEDS ORDERED: PHARMACY COMMENT IV NR (13:00)
[2023-06-21 14:10] VITALS: RESP 18
[2023-06-21] MEDS ORDERED: CRESTOR TAB 10 MG PO SCH (21:00)
== END 2023-06-21 17:05 | disposition home health service (06) | DRG 572 ==
LOC: ER 12:15 → MED/SURG 16:12
PROVIDERS: ADMIT Family Medicine; ATTEND Family Medicine